=== PATIENT | male | born 1980 | race African-American/Black ===

== ENCOUNTER 2024-02-27 13:43 | Inpatient (IN) ==
--- NOTE | 2024-02-27 13:59 | Emergency Department Note ---
History of Present Illness General Chief complaint: Hip Pain Time Seen by Provider: 02/27/24 13:47 History of Present Illness This is a 43-year-old male with a history of right hip surgery about a year ago that presents to the emergency department via EMS accompanied by 2 corrections officers from [facility] with complaints of "right hip pain". Patient has history of right hip surgery about a year ago. This was with hardware secondary to injury. The patient denies issue up until today he notes he was standing in his cell, twisted and felt a pop in the right hip region. This persisted. He did not fall. He did not strike the head or lose consciousness. Since that time he notes right hip pain that is severe, 02/13 in nature and he feels a protrusion in the right anterior hip. Home Medications Medication Instructions Recorded Confirmed Type cetirizine 10 mg capsule 10 mg PO QAM 07/11/23 02/27/24 History meloxicam 15 mg tablet 15 mg PO QAM 07/11/23 02/27/24 History omeprazole 20 mg capsule,delayed 20 mg PO QAM 07/11/23 02/27/24 History release albuterol sulfate 90 mcg/actuation 1 inh inhalation QID PRN 08/09/23 02/27/24 History aerosol inhaler sob/wheezing tamsulosin 0.4 mg capsule 0.4 mg PO DAILY #90 caps 09/03/23 02/27/24 Rx Allergies Allergy/AdvReac Type Severity Reaction Status Date / Time No Known Allergies Allergy Verified 07/26/23 05:57 Past Med/Surg History Problem List (Updated 02/27/24 @ 22:44 by Noble Freedman PA-C) Urinary retention (Acute) Inability to ambulate due to hip (Acute) Right hip pain (Acute) Urinary hesitancy Scrotal pain (Acute) Testicular pain Epididymitis Medical History Left varicocele GERD (gastroesophageal reflux disease) Allergic rhinitis Chronic pain Bulging lumbar disc DDD (degenerative disc disease), lumbar Surgical History Hx of left inguinal hernia repair (~05/17/23) History of repair of right hip joint Hx of appendectomy Hx of shoulder surgery lt, labrum, AC and Bursa Social History Smoking Status: Never smoker Tobacco Type: Smokeless Tobacco (Dip or Chew) Second Hand Exposure: No; Do You Dip or Chew Tobacco: Yes (5 dips/day); Hx Alcohol Use: No Hx Substance Use: Yes Last Used Substance Other:: daily use of marijuana Preferred Language: Georgian Communication Ability: Effective 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 Beliefs That Will Affect Care: None Current Living Situation: Spouse Feels Safe at Home: Yes Assistive Devices: Cane and Glasses Review of Systems A total of 10 systems reviewed and were otherwise negative Physical Exam Vital Signs Vital Signs - 24 hr 02/27/24 13:50 02/27/24 13:57 02/27/24 14:00 Temperature 36.7 C Temperature Source Oral Pulse Rate 81 77 Pulse Rate from SpO2 Sensor 77 Respiratory Rate 20 18 Respiratory Effort / Characteristics Non-Labored Spontaneous Respiratory Depth Normal Respiratory Pattern Regular Blood Pressure 115/63 Blood Pressure Mean 80 Pulse Oximetry 99 100 100 Oxygen Delivery Method Room Air Room Air Room Air Sepsis Recent Fever Within 48 Hours No Sepsis New/Unexplained Change in Mental Status N/A Sepsis Action Taken by Nursing No Action Required 02/27/24 14:07 02/27/24 14:12 02/27/24 14:21 Temperature Temperature Source Pulse Rate 77 100 H 73 Pulse Rate from SpO2 Sensor 101 H 72 Respiratory Rate 16 12 Respiratory Effort / Characteristics Respiratory Depth Respiratory Pattern Blood Pressure Blood Pressure Mean Pulse Oximetry 99 93 Oxygen Delivery Method Sepsis Recent Fever Within 48 Hours Sepsis New/Unexplained Change in Mental Status Sepsis Action Taken by Nursing 02/27/24 14:30 02/27/24 14:45 02/27/24 15:06 Temperature Temperature Source Pulse Rate 69 67 Pulse Rate from SpO2 Sensor 69 66 Respiratory Rate 19 12 Respiratory Effort / Characteristics Respiratory Depth Respiratory Pattern Blood Pressure 87/55 L Blood Pressure Mean 58 Pulse Oximetry 100 96 Oxygen Delivery Method Sepsis Recent Fever Within 48 Hours Sepsis New/Unexplained Change in Mental Status Sepsis Action Taken by Nursing 02/27/24 15:09 02/27/24 15:18 02/27/24 15:24 Temperature Temperature Source Pulse Rate 67 74 70 Pulse Rate from SpO2 Sensor 67 74 72 Respiratory Rate 12 13 12 Respiratory Effort / Characteristics Respiratory Depth Respiratory Pattern Blood Pressure Blood Pressure Mean Pulse Oximetry 97 97 94 Oxygen Delivery Method Sepsis Recent Fever Within 48 Hours Sepsis New/Unexplained Change in Mental Status Sepsis Action Taken by Nursing 02/27/24 15:33 02/27/24 15:36 02/27/24 15:36 Temperature Temperature Source Pulse Rate 79 Pulse Rate from SpO2 Sensor 79 Respiratory Rate 11 L Respiratory Effort / Characteristics Respiratory Depth Respiratory Pattern Blood Pressure 95/63 L 95/63 L Blood Pressure Mean 70 70 Pulse Oximetry 97 Oxygen Delivery Method Sepsis Recent Fever Within 48 Hours Sepsis New/Unexplained Change in Mental Status Sepsis Action Taken by Nursing 02/27/24 15:36 02/27/24 15:48 02/27/24 15:50 Temperature Temperature Source Pulse Rate 78 Pulse Rate from SpO2 Sensor 78 Respiratory Rate 15 Respiratory Effort / Characteristics Respiratory Depth Respiratory Pattern Blood Pressure 95/63 L 107/66 Blood Pressure Mean 70 72 Pulse Oximetry 99 Oxygen Delivery Method Sepsis Recent Fever Within 48 Hours Sepsis New/Unexplained Change in Mental Status Sepsis Action Taken by Nursing 02/27/24 15:51 02/27/24 16:03 02/27/24 16:15 Temperature Temperature Source Pulse Rate 70 66 75 Pulse Rate from SpO2 Sensor 69 65 75 Respiratory Rate 15 14 Respiratory Effort / Characteristics Respiratory Depth Respiratory Pattern Blood Pressure Blood Pressure Mean Pulse Oximetry 99 98 100 Oxygen Delivery Method Room Air Sepsis Recent Fever Within 48 Hours Sepsis New/Unexplained Change in Mental Status Sepsis Action Taken by Nursing 02/27/24 16:27 02/27/24 16:30 02/27/24 16:42 Temperature Temperature Source Pulse Rate 69 73 70 Pulse Rate from SpO2 Sensor 69 71 69 Respiratory Rate 14 14 Respiratory Effort / Characteristics Respiratory Depth Respiratory Pattern Blood Pressure Blood Pressure Mean Pulse Oximetry 97 98 97 Oxygen Delivery Method Sepsis Recent Fever Within 48 Hours Sepsis New/Unexplained Change in Mental Status Sepsis Action Taken by Nursing 02/27/24 16:54 02/27/24 17:00 02/27/24 17:21 Temperature Temperature Source Pulse Rate 69 65 62 Pulse Rate from SpO2 Sensor 72 65 64 Respiratory Rate 14 11 L Respiratory Effort / Characteristics Respiratory Depth Respiratory Pattern Blood Pressure Blood Pressure Mean Pulse Oximetry 100 97 99 Oxygen Delivery Method Sepsis Recent Fever Within 48 Hours Sepsis New/Unexplained Change in Mental Status Sepsis Action Taken by Nursing 02/27/24 17:39 Temperature Temperature Source Pulse Rate 70 Pulse Rate from SpO2 Sensor 70 Respiratory Rate 13 Respiratory Effort / Characteristics Respiratory Depth Respiratory Pattern Blood Pressure 115/60 Blood Pressure Mean 78 Pulse Oximetry 99 Oxygen Delivery Method Room Air Sepsis Recent Fever Within 48 Hours Sepsis New/Unexplained Change in Mental Status Sepsis Action Taken by Nursing VITAL SIGNS - Vital signs and nursing notes were reviewed. Stable and afebrile. GENERAL -43-year-old male appearing his stated age who appears to be in pain. Communicates well with provider and answers questions appropriately. SKIN - Without rashes. No meningeal or petechial rash. HEAD - NC/AT. EYES - PERRL with EOMI bilaterally. Sclera anicteric. EARS - No deformities of external structures noted on gross examination bilaterally. NOSE - Midline and without cyanosis. No epistaxis or purulent drainage noted. LUNGS - Chest wall symmetric without accessory muscle use, intercostals retractions, or central cyanosis. Normal vesicular breath sounds CTA B/L. No wheezes, rales, or rhonchi appreciated. CARDIAC -tachycardic at a regular rhythm with S1/S2. No murmur, rubs, or gallops appreciated. ABDOMEN - Abdominal contour normal without pulsations or visible masses. BS normoactive all four quadrants. No tenderness, palpable masses, hepatosplenomegaly, or ascites noted. EXTREMITIES - No clubbing or peripheral cyanosis. Fullness in the right anterior hip. Right leg externally rotated +5/5 strength noted in UE/LE bilaterally. However, will not flex or extend the right hip actively and passive range severely limited secondary to pain. Axial loading of the right leg does reproduce discomfort. Gentle longitudinal traction does not increase discomfort. NEUROLOGIC - Cranial nerves II through XII grossly intact. Sensory intact to light touch throughout the right lower extremity without deficit PSYCH -alert, oriented and pleasant on exam. Course Administered Medications Acetaminophen (Acetaminophen 500 Mg Tab) 1,000 mg PO Q8H FANTASMA Stop: 03/28/24 21:59 Last Admin: 02/27/24 22:12 Dose: 1,000 mg Documented By: RAHEEM Cyclobenzaprine HCl (Cyclobenzaprine Hcl 10 Mg Tab) 10 mg PO TID FANTASMA Stop: 03/28/24 20:59 Last Admin: 02/27/24 22:11 Dose: 10 mg Documented By: RAHEEM Docusate Sodium (Docusate Sodium 100 Mg Cap) 100 mg PO BID FANTASMA Stop: 03/28/24 20:59 Last Admin: 02/27/24 22:11 Dose: 100 mg Documented By: RAHEEM Enoxaparin Sodium (Enoxaparin Inj 40 Mg/0.4 Ml Syr) 40 mg SQ Q24H FANTASMA Stop: 03/28/24 20:59 Last Admin: 02/27/24 22:12 Dose: 40 mg Documented By: RAHEEM Gabapentin (Gabapentin 300 Mg Cap) 300 mg PO TID FANTASMA Stop: 03/28/24 20:59 Last Admin: 02/27/24 22:12 Dose: 300 mg Documented By: RAHEEM Melatonin (Melatonin 3 Mg Tab) 6 mg PO HS PRN PRN Reason: Sleep Stop: 03/28/24 20:59 Last Admin: 02/27/24 22:11 Dose: 6 mg Documented By: RAHEEM Methocarbamol (Methocarbamol 750 Mg Tablet) 750 mg PO TID FANTASMA Stop: 03/28/24 18:20 Last Admin: 02/27/24 19:02 Dose: 750 mg Documented By: BALDOMERO Morphine Sulfate (Morphine Sulfate 4 Mg/Ml 1 Ml Carp\\Vial) 3 mg IV Q3H PRN PRN Reason: Severe Pain (Scale 7, 8, 9,10) Stop: 03/12/24 20:46 Last Admin: 02/27/24 21:12 Dose: 3 mg Documented By: RAHEEM Discontinued Medications Fentanyl Citrate (Fentanyl Citrate Pf 100 Mcg/2 Ml Vial) 50 mcg IV Q30M [facility] Stop: 03/12/24 13:59 Last Admin: 02/27/24 18:37 Dose: Not Given Documented By: Admin: 02/27/24 18:36 Dose: Not Given Documented By: Admin: 02/27/24 17:46 Dose: Not Given Documented By: Admin: 02/27/24 17:11 Dose: Not Given Documented By: Admin: 02/27/24 17:11 Dose: Not Given Documented By: Admin: 02/27/24 16:31 Dose: Not Given Documented By: Admin: 02/27/24 15:43 Dose: 50 mcg Documented By: Admin: 02/27/24 15:34 Dose: Not Given Documented By: Admin: 02/27/24 15:17 Dose: Not Given Documented By: Admin: 02/27/24 14:04 Dose: 50 mcg Documented By: BALDOMERO Ketorolac Tromethamine (Ketorolac Tromethamine 15 Mg/Ml Vial) 15 mg IV NOW STA Stop: 02/27/24 16:44 Last Admin: 02/27/24 17:15 Dose: 15 mg Documented By: BALDOMERO Ondansetron HCl (Ondansetron Inj 2 Mg/Ml 2 Ml Vial) 4 mg IV NOW STA Stop: 02/27/24 13:58 Last Admin: 02/27/24 14:04 Dose: 4 mg Documented By: BALDOMERO Medical Decision Making Laboratory Data 02/27/24 13:52 02/27/24 13:52 Lab Results 02/27/24 Range/Units 13:52 WBC 7.97 (4.8-10.8) K/ul RBC 4.53 L (4.70-6.10) M/uL Hgb 13.9 L (14.0-18.0) g/dl Hct 40.5 L (42.0-52.0) % MCV 89.4 (80.0-100.0) fL MCH 30.7 (25.0-34.0) pg MCHC 34.3 (32.0-36.0) g/dL RDW Std Deviation 38.6 (36.4-46.3) fL RDW Coeff of Nery 11.9 (11.5-14.5) % Plt Count 224 (130-400) K/uL MPV 9.5 (9.4-12.4) fL Immature Gran % (Auto) 0.3 % Neut % (Auto) 72.9 % Lymph % (Auto) 19.6 % [place] % (Auto) 5.1 % Eos % (Auto) 1.5 % Baso % (Auto) 0.6 % Neut # (Auto) 5.81 (1.40-6.50) K/uL Lymph # (Auto) 1.56 (1.20-3.40) K/uL [place] # (Auto) 0.41 (0.11-0.59) K/uL Eos # (Auto) 0.12 (0.00-0.50) K/uL Baso # (Auto) 0.05 (0.00-0.20) K/uL Immature Gran # (Auto) 0.02 (0.01-0.20) K/uL PT 11.4 (9.0-12.0) Seconds INR 1.1 (0.9-1.1) APTT 25 (21-31) Seconds PTT Ratio 0.9 Sodium 139 (136-145) mmol/L Potassium 3.9 (3.5-5.1) mmol/L Chloride 103 (98-107) mmol/L Carbon Dioxide 28 (21-32) mmol/L Anion Gap 8 (3-11) BUN 17 (6-23) mg/dl Creatinine 1.05 (0.6-1.4) mg/dl Est Cr Clr Drug Dosing 97.5 ml/min eGFR 89.21 BUN/Creatinine Ratio 16.2 (10-20) Glucose 107 H (70-99(Fasting)) mg/dl Calcium 9.3 (8.6-10.3) mg/dl Total Bilirubin 0.5 (0.2-1.0) mg/dl AST 16 (13-39) U/L ALT 11 (7-52) U/L Alkaline Phosphatase 68 (34-104) U/L Total Protein 6.7 (6.0-8.3) gm/dl Albumin 4.3 (3.4-5.0) gm/dl Globulin 2.4 L (2.5-4.0) gm/dl Albumin/Globulin Ratio 1.8 (0.9-2) Imaging Data Radiologist's Impression: Hip/Pelvis X-Ray 02/27/24 13:57 XR hip RT 2V w pelvis HISTORY: 43 years-old Male severe R hip pain s/p feeling pop while twisting COMPARISON: None TECHNIQUE: AP view of the pelvis with 2 views of the right hip FINDINGS: Intact right proximal femoral ORIF hardware. Surgical clips project over the right hemipelvis. Minimal osteoarthritis of the hips. No acute fracture, dislocation or osseous erosion. No opaque foreign bodies. IMPRESSION: 1. No acute fracture or dislocation. 2. Intact right proximal femoral hardware. ACT 112: Negative or not required by law. The above report was generated using voice recognition software. It may contain grammatical, syntax or spelling errors. Electronically signed by: Jordy Yung M.D. 02/27/2024 2:[address] 02/27/24 14:33 CT hip RT wo con CLINICAL HISTORY: R hip pain, felt pop when rotating, severe pain TECHNIQUE: Multidetector row helical CT of the right hip was performed without intravenous contrast. Coronal and sagittal reformations were obtained. Automated dose lowering techniques and/or adjustment according to patient size were utilized for this examination. CT DOSE: 419.18 mGy.cm Comparison: None available at the time of this dictation. FINDINGS: The osseous structures are without fracture or dislocation. A nail through the femoral neck is seen. The joint spaces are maintained. No joint effusion is seen. The soft tissues are unremarkable. IMPRESSION: No evidence of acute fracture or dislocation. ACT 112: Negative or not required by law. Electronically signed by: Ian Romero M.D. 02/27/2024 3:39 PM MDM Narrative Patient was seen and evaluated as above in room C07. Review was performed of triage nursing notes and vital signs. Patient presents to us today for assessment of right hip pain. Patient was standing in his cell, twisted and felt a pop in the right anterior hip. He notes severe right hip pain since that time. He notes history of surgery on the hip about a year ago. Patient and route did receive 50 mcg of fentanyl by EMS. On arrival he is in severe pain, and is shaking from so much pain. He is alert and oriented. No signs of additional trauma or injury. There is tenderness overlying the right anterior hip. Options of care were discussed with the patient. IV fentanyl ordered for pain and Zofran for any nausea. He did receive a total of 2 IV doses of fentanyl here in the ED. X-ray of the right hip plus pelvis was obtained per my interpretation there is no fracture or dislocation. Formal radiology report is as above also noting no fracture or dislocation. Radiologist also comments intact right proximal femoral hardware. Noting the patient severity of pain we will proceed with CT imaging for further assessment. CT scan results as above. This was essentially negative. I discussed with Dr. Platt of orthopedics. At this time we agreed there is no acute surgical process based on assessment and imaging. We also agreed with trying IV Toradol. I reviewed this with the patient, to include benefit and risk. Patient did note history of some GI bleeding with ibuprofen but that was several years ago. No allergy to ibuprofen. At this time it is felt that a one-time dose of IV Toradol outweighed benefit. Patient in agreement and we proceeded. No change in symptoms. Patient also noted to be retaining urine but notes history of similar. I suspect the inability to urinate is secondary to not being able to move with the hip pain and do not suspect cauda equina syndrome or emergent neurovascular compromise. Patient denies any lower extremity weakness, bowel or bladder incontinence, numbness or tingling in genital region. Bladder scan was performed he was retaining about 800 cc. Abrams catheter was placed as the patient still cannot urinate. At this time we will proceed with further evaluation and management in the inpatient setting. Case was discussed with the hospitalist service. Please refer to further documentation regarding his stay. Urinalysis reveals no leukocytosis. Minor anemia noted with hemoglobin of 13 9. Coags are normal. No evidence of kidney or liver failure. GCS: 15 In the evaluation and treatment of this patient the following differential diagnoses were entertained: Fracture, dislocation, subluxation, contusion, sprain, strain, among others Impression & Plan Right hip pain, Inability to ambulate due to hip, Urinary retention Discharge Plan Visit Data Chief Complaint: Hip Pain ED Provider: Shawn Newsome ED Midlevel Provider: Noble Freedman Discharge Problem: Right hip pain, Inability to ambulate due to hip, Urinary retention Patient Disposition: Admitted As Inpatient Condition: Good Discharge Instructions Interventions: ED Discharge Assessment Last Done: 02/27/24 20:15
[2024-02-27] MEDS: ONDANSETRON INJ 2 MG/ML 2 ML VIAL IV STA (14:04)
[2024-02-27] MEDS: fentaNYL citrate PF 100 MCG/2 ML VIAL IV SCH (14:04)
[2024-02-27 14:13] LABS: Basophils # (auto) 0.05 K/uL (0.00-0.20); Basophils % (auto) 0.6 %; Eosinophils # (auto) 0.12 K/uL (0.00-0.50); Eosinophils % (auto) 1.5 %; Hematocrit (blood only) 40.5 % (42.0-52.0); Hemoglobin 13.9 g/dl (14.0-18.0); Immature Granulocytes # (auto) 0.02 K/uL (0.01-0.20); Immature Granulocytes % (auto) 0.3 %; Lymphocytes # (auto) 1.56 K/uL (1.20-3.40); Lymphocytes % (auto) 19.6 %; Mean Corpuscular Hemoglobin 30.7 pg (25.0-34.0); Mean Corpuscular Hgb Conc 34.3 g/dL (32.0-36.0); Mean Corpuscular Volume 89.4 fL (80.0-100.0); Mean Platelet Volume 9.5 fL (9.4-12.4); Monocytes # (auto) 0.41 K/uL (0.11-0.59); Monocytes % (auto) 5.1 %; Neutrophils # (auto) 5.81 K/uL (1.40-6.50); Neutrophils % (auto) 72.9 %; Platelet Count 224 K/uL (130-400); RDW Coefficient of Variation 11.9 % (11.5-14.5); RDW Standard Deviation 38.6 fL (36.4-46.3); Red Blood Count 4.53 M/uL (4.70-6.10); White Blood Count 7.97 K/ul (4.8-10.8)
[2024-02-27 14:29] LABS: Albumin Globulin Ratio 1.8 (0.9-2); Albumin Level 4.3 gm/dl (3.4-5.0); BUN Creatinine Ratio 16.2 (10-20); Calcium 9.3 mg/dl (8.6-10.3); Creatinine Clr Calc Pharmacy 97.5 ml/min; Globulin 2.4 gm/dl (2.5-4.0); Potassium 3.9 mmol/L (3.5-5.1); Total Protein 6.7 gm/dl (6.0-8.3)
--- NOTE | 2024-02-27 14:40 | XRay Report ---
XR hip RT 2V w pelvis HISTORY: 43 years-old Male severe R hip pain s/p feeling pop while twisting COMPARISON: None TECHNIQUE: AP view of the pelvis with 2 views of the right hip FINDINGS: Intact right proximal femoral ORIF hardware. Surgical clips project over the right hemipelvis. Minima l osteoarthritis of the hips. No acute fracture, dislocation or osseous erosion. No opaque foreign nirmala dies. IMPRESSION: 1. No acute fracture or dislocation. 2. Intact right proximal femoral hardware. ACT 112: Negative or not required by law. The above report was generated using voice recognition software. It may contain grammatical, syntax o r spelling errors. Electronically signed by: Jordy Yung M.D. 02/27/2024 2:38 PM
[2024-02-27 14:41] LABS: INR 1.1 (0.9-1.1); Partial Thromboplastin Ratio 0.9; Partial Thromboplastin Time 25 Seconds (21-31); Prothrombin Time 11.4 Seconds (9.0-12.0)
[2024-02-27 14:46] LABS: Bilirubin,Total 0.5 mg/dl (0.2-1.0)
--- NOTE | 2024-02-27 15:41 | CT Scan Report ---
CT hip RT wo con CLINICAL HISTORY: R hip pain, felt pop when rotating, severe pain TECHNIQUE: Multidetector row helical CT of the right hip was performed without intravenous contrast. Coronal and sagittal reformations were obtained. Automated dose lowering techniques and/or adjustment according to patient size were utilized for this examination. CT DOSE: 419.18 mGy.cm Comparison: None available at the time of this dictation. FINDINGS: The osseous structures are without fracture or dislocation. A nail through the femoral neck is seen. The joint spaces are maintained. No joint effusion is seen. The soft tissues are unremarkable. IMPRESSION: No evidence of acute fracture or dislocation. ACT 112: Negative or not required by law. Electronically signed by: Ian Romero M.D. 02/27/2024 3:39 PM
[2024-02-27] MEDS: KETOROLAC TROMETHAMINE 15 MG/ML VIAL IV STA (17:15)
[2024-02-27] MEDS ORDERED: oxyCODONE HCL IR 5 MG TAB (IMMEDIATE RELEASE) PO PRN ×2 (18:23→20:47)
[2024-02-27] MEDS ORDERED: MoRPHine SULFATE 4 MG/ML 1 ML CARP\\VIAL IV PRN (18:23)
--- NOTE | 2024-02-27 18:24 | History & Physical Report ---
Date of Service February 27, 2024 Assessment & Plan (1) Right hip pain: (2) Inability to ambulate due to hip: (3) Urinary retention: Plan This is a 43 yr old M who has a significant PMH of seasonal allergies, chronic low back pain, chronic R hip pain 2/2 fall requiring surgery intervention, hx of medical marijuana use who presents to ED 2/2 R hip pain. R hip pain Inability to ambulate admit to medical obtain MRI R hip and Lumbar spine Schedule APAP Schedule methocarbamol 750mg TID (pt previously on 1g TID but stopped at residential) Restart gabapentin (pt reports being on 1800mg daily previously) will start 300mg TID and titrate up PRN Oxy for mod pain, PRN IV morphine for severe pain scheduled Colace Urinary Retention Previous hx of urinary hesitancy continue flomax, maintain paulino cath for now once pain under control and ambulating remove bindu consult urology DVT ppx: SCDS for now, await MRI results, if non surgical recommend chemical ppx until ambulatory FULL CODE PCP: [facility] Dispo: admit to medical Pt was seen and examined in collaboration with Dr. Weinstein, please see addendum I spent a total of 60 minutes minutes reviewing notes, outpatient records, labs, medication, coordinating, documenting and providing care for this patient excluding time spent in the performance of separately billed services. History of Present Illness Chief Complaint: R hip pain Primary Care Provider: Vinod Oreilly This is a 43 yr old M who has a significant PMH of seasonal allergies, chronic low back pain, chronic R hip pain 2/2 fall requiring surgery intervention, hx of medical marijuana use who presents to ED 2/2 R hip pain. He is a prisoner at [facility]. Pt states today he was trying to get up from his bed when he got intense R hip pain that caused him to grab the sink and sit back down. When he tried to get up again he felt a pop in his right him and he went down to the ground. His cellmate helped him up but due to the intense pain he was brought to the ED. He states approx 1 year ago he had R hip surgery after a sustained fall where he also tore his labrum. He states this feels similar. "It feels like something is being pushed out or all balled up in there." He reports chronic stabbing pain to the R hip with numbness/tingling to the RLE. This was all present before today. He also reports chronic urinary hesitancy and urgency. He also reports inability to urinate at times. He denies any stool incontinence or bowel/bladder anesthesia. He denies any recent f/c/s, chest pain, sob, n/v/d. His appetite has been normal. Thus far workup in ED has been unremarkable. He underwent a right hip x-ray which revealed intact right proximal femoral ORIF hardware. CT scan concurred with no evidence of fracture or dislocation. CBC and CMP was drawn unremarkable except for a mildly decreased hemoglobin at 13.9. Currently his pain is significant 10 out of 10 and he has had an inability to actively move his right lower extremity. Currently unable to walk secondary to severe pain. A Paulino catheter was placed in the ED due to urinary retention. Allergies Allergy/AdvReac Type Severity Reaction Status Date / Time No Known Allergies Allergy Verified 07/26/23 05:57 Home Medications Medication Instructions Recorded Confirmed Type cetirizine 10 mg capsule 10 mg PO QAM 07/11/23 02/27/24 History meloxicam 15 mg tablet 15 mg PO QAM 07/11/23 02/27/24 History omeprazole 20 mg capsule,delayed 20 mg PO QAM 07/11/23 02/27/24 History release albuterol sulfate 90 mcg/actuation 1 inh inhalation QID PRN 08/09/23 02/27/24 History aerosol inhaler sob/wheezing tamsulosin 0.4 mg capsule 0.4 mg PO DAILY #90 caps 09/03/23 02/27/24 Rx Past Med/Surg History Problem List Urinary retention Inability to ambulate due to hip Right hip pain Urinary hesitancy Scrotal pain (Acute) Testicular pain Epididymitis Medical History Left varicocele GERD (gastroesophageal reflux disease) Allergic rhinitis Chronic pain Bulging lumbar disc DDD (degenerative disc disease), lumbar Surgical History Hx of left inguinal hernia repair (~05/17/23) History of repair of right hip joint Hx of appendectomy Hx of shoulder surgery lt, labrum, AC and Bursa Social History Smoking Status: Never smoker Tobacco Type: Smokeless Tobacco (Dip or Chew) Second Hand Exposure: No; Do You Dip or Chew Tobacco: Yes (5 dips/day); Hx Alcohol Use: No Hx Substance Use: Yes Last Used Substance Other:: daily use of marijuana Preferred Language: Spanish Communication Ability: Effective Life Enrichment Assistant Required: No Beliefs That Will Affect Care: None Current Living Situation: Spouse Feels Safe at Home: Yes Assistive Devices: Cane and Glasses Review of Systems Review of Systems: All systems reviewed & are unremarkable except as noted in HPI & below Physical Exam Physical Exam: Constitutional: WD/WN, vitals as above, in pain, sitting up in bed, pleasant, conversing easily Head: Normocephalic, Atraumatic Eyes: PERRL, conjunctivae normal, anicteric sclerae ENMT: external ear and nose normal, oropharynx normal Neck: trachea midline, no thyromegaly normal visual inspection Respiratory: normal respiratory effort, lungs clear to auscultation, no wheeze, rales, rhonchi. Normal insp/exp effort, no accessory muscle use Cardiovascular: RRR, no murmur, no edema Vessels: no JVD or carotid bruit Chest: normal inspection of chest Abdomen: normal bowel sounds, soft, nontender, no hepatosplenomegaly Musculoskeletal: no cyanosis or clubbing, inability to active/passively pts RLE,he is NVI distally, good DP, PT pulse b/l Skin: no rashes, warm and dry normal turgor Neurologic: PERRL, EOMI, accommodation nl, no face palsy, no dysarthria CN's II-XI intact bilaterally and moves all extremities Psychiatric: A+Ox3, euthymic affect Lymphatic: no cervical or axillary lymphadenopathy : deferred Results & Data Results & Data Vital Signs (Past 12 Hours) Vital Signs Temp Pulse Resp BP Pulse Ox O2 Del Method 02/27/24 17:39 70 13 115/60 99 Room Air 02/27/24 17:21 62 11 L 99 02/27/24 17:00 65 97 02/27/24 16:54 69 14 100 02/27/24 16:42 70 97 02/27/24 16:30 73 14 98 02/27/24 16:27 69 14 97 02/27/24 16:15 75 14 100 02/27/24 16:03 66 98 02/27/24 15:51 70 15 99 Room Air 02/27/24 15:50 107/66 02/27/24 15:48 78 15 99 02/27/24 15:36 95/63 L 02/27/24 15:36 95/63 L 02/27/24 15:36 95/63 L 02/27/24 15:33 79 11 L 97 02/27/24 15:24 70 12 94 02/27/24 15:18 74 13 97 02/27/24 15:09 67 12 97 02/27/24 15:06 87/55 L 02/27/24 14:45 67 12 96 02/27/24 14:30 69 19 100 02/27/24 14:21 73 12 93 02/27/24 14:12 100 H 16 99 02/27/24 14:07 77 02/27/24 14:00 77 18 100 Room Air 02/27/24 13:57 100 Room Air 02/27/24 13:50 36.7 C 81 20 115/63 99 Room Air Laboratory Results I have independently reviewed and interpreted patient's admitting labs including CBC, CMP Diagnostic Findings Hip/Pelvis X-Ray 02/27/24 13:57 XR hip RT 2V w pelvis HISTORY: 43 years-old Male severe R hip pain s/p feeling pop while twisting COMPARISON: None TECHNIQUE: AP view of the pelvis with 2 views of the right hip FINDINGS: Intact right proximal femoral ORIF hardware. Surgical clips project over the right hemipelvis. Minimal osteoarthritis of the hips. No acute fracture, dis location or osseous erosion. No opaque foreign bodies. IMPRESSION: 1. No acute fracture or dislocation. 2. Intact right proximal femoral hardware. ACT 112: Negative or not required by law. The above report was generated using voice recognition software. It may contain grammatical, syntax or spelling errors. Electronically signed by: Jordy Yung M.D. 02/27/2024 2:[address] 02/27/24 14:33 CT hip RT wo con CLINICAL HISTORY: R hip pain, felt pop when rotating, severe pain TECHNIQUE: Multidetector row helical CT of the right hip was performed without intravenous contrast. Coronal and sagittal reformations were obtained. Automated dose lowering techniques and/or adjustment according to patient size were utilized for this examination. CT DOSE: 419.18 mGy.cm Comparison: None available at the time of this dictation. FINDINGS: The osseous structures are without fracture or dislocation. A nail through the femoral neck is seen. The joint spaces are maintained. No joint effusion is seen. The soft tissues are unremarkable. IMPRESSION: No evidence of acute fracture or dislocation. ACT 112: Negative or not required by law. Electronically signed by: Ian Romero M.D. 02/27/2024 3:39 PM Medications Administered Current Inpatient Medications Fentanyl Citrate (Fentanyl Citrate Pf 100 Mcg/2 Ml Vial) 50 mcg IV Q30M [facility] Stop: 03/12/24 13:59 Last Admin: 02/27/24 17:46 Dose: Not Given Methocarbamol (Methocarbamol 750 Mg Tablet) 750 mg PO TID [facility] Stop: 03/28/24 18:20 Morphine Sulfate (Morphine Sulfate 4 Mg/Ml 1 Ml Carp\\Vial) 3 mg IV Q3H PRN PRN Reason: Severe Pain (Scale 7, 8, 9,10) Stop: 03/12/24 18:22 Oxycodone HCl (Oxycodone Hcl Ir 5 Mg Tab (Immediate Release)) 5 mg PO Q6H PRN PRN Reason: Moderate Pain (Scale 4, 5, 6) Stop: 03/12/24 18:22 COVID-19 Results Results COVID-19 Adm Lab Results: RBC 4.53 M/uL (4.70-6.10) L 02/27/24 WBC 7.97 K/ul (4.8-10.8) 02/27/24 Hgb 13.9 g/dl (14.0-18.0) L 02/27/24 Hct 40.5 % (42.0-52.0) L 02/27/24 Plt Count 224 K/uL (130-400) 02/27/24 Neutrophils (%) (Auto) 72.9 % 02/27/24 Lymphocytes (%) (Auto) 19.6 % 02/27/24 Eosinophils # (Auto) 0.12 K/uL (0.00-0.50) 02/27/24 Immature Granulocyte % (Auto) 0.3 % 02/27/24 Neutrophils # (Auto) 5.81 K/uL (1.40-6.50) 02/27/24 Lymphocytes # (Auto) 1.56 K/uL (1.20-3.40) 02/27/24 Eosinophils # (Auto) 0.12 K/uL (0.00-0.50) 02/27/24 Basophils # (Auto) 0.05 K/uL (0.00-0.20) 02/27/24 Immature Granulocyte # (Auto) 0.02 K/uL (0.01-0.20) 4 Na 139 mmol/L (136-145) 02/27/24 K 3.9 mmol/L (3.5-5.1) 02/27/24 Cl 103 mmol/L (98-107) 02/27/24 CO2 28 mmol/L (21-32) 02/27/24 Anion Gap 8 (3-11) 02/27/24 BUN 17 mg/dl (6-23) 02/27/24 Creatinine 1.05 mg/dl (0.6-1.4) 02/27/24 BUN/Creatinine Ratio 16.2 (10-20) 02/27/24 Glucose Level 107 mg/dl (70-99(Fasting)) H 02/27/24 Ca 9.3 mg/dl (8.6-10.3) 02/27/24 Total Bilirubin 0.5 mg/dl (0.2-1.0) 02/27/24 AST/SGOT 16 U/L (13-39) 02/27/24 ALT/SGPT 11 U/L (7-52) 02/27/24 Alkaline Phosphatase 68 U/L (34-104) 02/27/24 Total Protein 6.7 gm/dl (6.0-8.3) 02/27/24 Albumin 4.3 gm/dl (3.4-5.0) 02/27/24 Globulin 2.4 gm/dl (2.5-4.0) L 02/27/24 Albumin/Globulin Ratio 1.8 (0.9-2) 02/27/24 PTT 25 Seconds (21-31) 02/27/24 INR 1.1 (0.9-1.1) 02/27/24 Code Status & VTE Plan VTE Prophylaxis Plan VTE Prophylaxis will be ordered: Yes Supervising Physician Co-Signing Physician Notes attending addendum The patient was seen and examined in the emergency room He has been complaining of severe pain in the right groin with any movement of the right lower extremity which has been worse since this morning He is also been unable to pass any urine and required a catheterization Apparently has had a fall about 1 week before and has been walking on feet since then History of left hip surgery years before On examination Lying in bed without any apparent distress Hemodynamically stable Chestclear to auscultate bilaterally HeartS1-S2, regular Abdomenbenign Musculoskeletalsome tenderness in the right groin and any movement of the right lower extremity produced severe pain in right hip His admission labs and imaging studies reviewed CT of the hip did not show any fracture or any dislocation The pain is likely originating in right hip and/or lower back and will need to get MRI of the lumbar spine and also hip to rule out any soft tissue injury Agree with assessment and plan as outlined above by aKrol Paulino PA-C and take the full responsibility of the care DR Debbi Weinstein
--- NOTE | 2024-02-27 18:26 | Orthopedic Consultation ---
Date of Consultation February 27, 2024 Assessment & Plan (1) Right hip pain: IMPRESSION: R hip pain, h/o previous right hip arthroscopy, labral repair, and ORIF, likely secondarily to muscle strain vs re-current labral injury although CT scan did not show an effusion. PT/OT Ice with easy wrap Pain control with p.o. or IV medication Muscle relaxers for spasm and pain Can be weightbearing as tolerated with crutches or walker assistance To consider MRI arthrogram of the right hip as outpatient To consider musculoskeletal ultrasound right hip Obtain medical record from previous surgery by [facility]. Continue care per primary service. Present on Admission?: Yes Supervising Physician Co-Signing Physician Notes I, Dr. Platt, saw and examined the patient. I discussed the management with my PA. I reviewed my PAs note and agree with the documented findings and attest to completing the substantive portion of medical decision making and plan of care I developed. History of Present Illness Reason for Consultation: Right Hip Pain Requesting Physician: Torsten Platt MD Attending Physician: Dr. Weinstein History of Present Illness This is a 43 yr old M who has a significant PMH of seasonal allergies, chronic low back pain, chronic R hip pain 2/2 fall requiring surgery intervention, hx of medical marijuana use who presents to ED 2/2 R hip pain. He is a prisoner at [facility]. Pt states today he was trying to get up from his bed when he got intense R hip pain that caused him to grab the sink and sit back down. When he tried to get up again he felt a pop in his right hip and he went down to the ground. His cellmate helped him up but due to the intense pain he was brought to the ED. He states approx 1 year ago he had R hip surgery after a sustained fall where he also tore his labrum. He states this feels similar. "It feels like something is being pushed out or all balled up in there." He reports chronic stabbing pain to the R hip with numbness/tingling to the RLE. This was all present before today. He also reports chronic urinary hesitancy and urgency. He also reports inability to urinate at times. He denies any stool incontinence or bowel/bladder anesthesia. He denies any recent f/c/s, chest pain, sob, n/v/d. His appetite has been normal. Thus far workup in ED has been unremarkable. He underwent a right hip x-ray which revealed intact right proximal femoral ORIF hardware. CT scan concurred with no evidence of fracture or dislocation. CBC and CMP was drawn unremarkable except for a mildly decreased hemoglobin at 13.9. Currently his pain is significant 10 out of 10 and he has had an inability to actively move his right lower extremity. Currently unable to walk secondary to severe pain. A Abrams catheter was placed in the ED due to urinary retention. Allergies Allergy/AdvReac Type Severity Reaction Status Date / Time No Known Allergies Allergy Verified 07/26/23 05:57 Home Medications Medication Instructions Recorded Confirmed Type cetirizine 10 mg capsule 10 mg PO QAM 07/11/23 02/27/24 History meloxicam 15 mg tablet 15 mg PO QAM 07/11/23 02/27/24 History omeprazole 20 mg capsule,delayed 20 mg PO QAM 07/11/23 02/27/24 History release albuterol sulfate 90 mcg/actuation 1 inh inhalation QID PRN 08/09/23 02/27/24 History aerosol inhaler sob/wheezing tamsulosin 0.4 mg capsule 0.4 mg PO DAILY #90 caps 09/03/23 02/27/24 Rx Patient History Medical History Left varicocele GERD (gastroesophageal reflux disease) Allergic rhinitis Chronic pain Bulging lumbar disc DDD (degenerative disc disease), lumbar Surgical History Hx of left inguinal hernia repair (~05/17/23) History of repair of right hip joint Hx of appendectomy Hx of shoulder surgery lt, labrum, AC and Bursa Social History Smoking Status: Never smoker Tobacco Type: Smokeless Tobacco (Dip or Chew) Second Hand Exposure: No; Do You Dip or Chew Tobacco: Yes (5 dips/day); Hx Alcohol Use: No Hx Substance Use: Yes Last Used Substance Other:: daily use of marijuana Preferred Language: [place] Communication Ability: Effective Joint Cutter Required: No Beliefs That Will Affect Care: None Current Living Situation: Spouse Feels Safe at Home: Yes Assistive Devices: Cane and Glasses Review of Systems Review of Systems: All systems reviewed & are unremarkable except as noted in Subjective Physical Exam Physical Exam: Right hip: Patient has significant tenderness to palpation over the hip adductor, flexor muscles and hamstrings extending from the groin area to the posterior aspect of the knee. Patient is unable to perform right straight leg raise test. He is unable to flex at his knee. He is positioned with his leg slightly externally rotated but is not shortened. He is able to actively dorsi and plantarflex his foot. His peripheral pulses are 2+. He is neurovascularly intact distally. He does have exquisite tenderness to palpation over the medial groin and along the medial aspect of the thigh. There is no edema, erythema or ecchymosis. Previous portals and lateral incision are well healed. Results & Data Vital Signs (Past 12 Hours) Vital Signs Temp Pulse Resp BP Pulse Ox O2 Del Method 02/27/24 18:16 69 02/27/24 17:39 70 13 115/60 99 Room Air 02/27/24 17:21 62 11 L 99 02/27/24 17:00 65 97 02/27/24 16:54 69 14 100 02/27/24 16:42 70 97 02/27/24 16:30 73 14 98 02/27/24 16:27 69 14 97 02/27/24 16:15 75 14 100 02/27/24 16:03 66 98 02/27/24 15:51 70 15 99 Room Air 02/27/24 15:50 107/66 02/27/24 15:48 78 15 99 02/27/24 15:36 95/63 L 02/27/24 15:36 95/63 L 02/27/24 15:36 95/63 L 02/27/24 15:33 79 11 L 97 02/27/24 15:24 70 12 94 02/27/24 15:18 74 13 97 02/27/24 15:09 67 12 97 02/27/24 15:06 87/55 L 02/27/24 14:45 67 12 96 02/27/24 14:30 69 19 100 02/27/24 14:21 73 12 93 02/27/24 14:12 100 H 16 99 02/27/24 14:07 77 02/27/24 14:00 77 18 100 Room Air 02/27/24 13:57 100 Room Air 02/27/24 13:50 36.7 C 81 20 115/63 99 Room Air Diagnostic Findings Laboratory Results WBC 7.97 K/ul (4.8-10.8) 02/27/24 13:52 RBC 4.53 M/uL (4.70-6.10) L 02/27/24 13:52 Hgb 13.9 g/dl (14.0-18.0) L 02/27/24 13:52 Hct 40.5 % (42.0-52.0) L 02/27/24 13:52 MCV 89.4 fL (80.0-100.0) 02/27/24 13:52 MCH 30.7 pg (25.0-34.0) 02/27/24 13:52 MCHC 34.3 g/dL (32.0-36.0) 02/27/24 13:52 RDW Std Deviation 38.6 fL (36.4-46.3) 02/27/24 13:52 RDW Coeff of Nery 11.9 % (11.5-14.5) 02/27/24 13:52 Plt Count 224 K/uL (130-400) 02/27/24 13:52 MPV 9.5 fL (9.4-12.4) 02/27/24 13:52 Immature Gran % (Auto) 0.3 % 02/27/24 13:52 Neut % (Auto) 72.9 % 02/27/24 13:52 Lymph % (Auto) 19.6 % 02/27/24 13:52 [place] % (Auto) 5.1 % 02/27/24 13:52 Eos % (Auto) 1.5 % 02/27/24 13:52 Baso % (Auto) 0.6 % 02/27/24 13:52 Neut # (Auto) 5.81 K/uL (1.40-6.50) 02/27/24 13:52 Lymph # (Auto) 1.56 K/uL (1.20-3.40) 02/27/24 13:52 [place] # (Auto) 0.41 K/uL (0.11-0.59) 02/27/24 13:52 Eos # (Auto) 0.12 K/uL (0.00-0.50) 02/27/24 13:52 Baso # (Auto) 0.05 K/uL (0.00-0.20) 02/27/24 13:52 Immature Gran # (Auto) 0.02 K/uL (0.01-0.20) 02/27/24 13:52 PT 11.4 Seconds (9.0-12.0) 02/27/24 13:52 INR 1.1 (0.9-1.1) 02/27/24 13:52 APTT 25 Seconds (21-31) 02/27/24 13:52 PTT Ratio 0.9 02/27/24 13:52 Sodium 139 mmol/L (136-145) 02/27/24 13:52 Potassium 3.9 mmol/L (3.5-5.1) 02/27/24 13:52 Chloride 103 mmol/L (98-107) 02/27/24 13:52 Carbon Dioxide 28 mmol/L (21-32) 02/27/24 13:52 Anion Gap 8 (3-11) 02/27/24 13:52 BUN 17 mg/dl (6-23) 02/27/24 13:52 Creatinine 1.05 mg/dl (0.6-1.4) 02/27/24 13:52 Est Cr Clr Drug Dosing 97.5 ml/min 02/27/24 13:52 eGFR 89.21 02/27/24 13:52 BUN/Creatinine Ratio 16.2 (10-20) 02/27/24 13:52 Glucose 107 mg/dl (70-99(Fasting)) H 02/27/24 13:52 Calcium 9.3 mg/dl (8.6-10.3) 02/27/24 13:52 Total Bilirubin 0.5 mg/dl (0.2-1.0) 02/27/24 13:52 AST 16 U/L (13-39) 02/27/24 13:52 ALT 11 U/L (7-52) 02/27/24 13:52 Alkaline Phosphatase 68 U/L (34-104) 02/27/24 13:52 Total Protein 6.7 gm/dl (6.0-8.3) 02/27/24 13:52 Albumin 4.3 gm/dl (3.4-5.0) 02/27/24 13:52 Globulin 2.4 gm/dl (2.5-4.0) L 02/27/24 13:52 Albumin/Globulin Ratio 1.8 (0.9-2) 02/27/24 13:52 Impressions Hip/Pelvis X-Ray 02/27/24 13:57 XR hip RT 2V w pelvis HISTORY: 43 years-old Male severe R hip pain s/p feeling pop while twisting COMPARISON: None TECHNIQUE: AP view of the pelvis with 2 views of the right hip FINDINGS: Intact right proximal femoral ORIF hardware. Surgical clips project over the right hemipelvis. Minimal osteoarthritis of the hips. No acute fracture, dislocation or osseous erosion. No opaque foreign bodies. IMPRESSION: 1. No acute fracture or dislocation. 2. Intact right proximal femoral hardware. ACT 112: Negative or not required by law. The above report was generated using voice recognition software. It may contain grammatical, syntax or spelling errors. Electronically signed by: Jordy Yung M.D. 02/27/2024 2:[address] 02/27/24 14:33 CT hip RT wo con CLINICAL HISTORY: R hip pain, felt pop when rotating, severe pain TECHNIQUE: Multidetector row helical CT of the right hip was performed without intravenous contrast. Coronal and sagittal reformations were obtained. Automated dose lowering techniques and/or adjustment according to patient size were utilized for this examination. CT DOSE: 419.18 mGy.cm Comparison: None available at the time of this dictation. FINDINGS: The osseous structures are without fracture or dislocation. A nail through the femoral neck is seen. The joint spaces are maintained. No joint effusion is seen. The soft tissues are unremarkable. IMPRESSION: No evidence of acute fracture or dislocation. ACT 112: Negative or not required by law. Electronically signed by: Ian Romero M.D. 02/27/2024 3:39 PM
[2024-02-27] MEDS: METHOCARBAMOL 750 MG TABLET PO SCH (19:02)
[2024-02-27] MEDS ORDERED: ALUMINUM/MAGNESIUM SUSP 30 ML UDC PO PRN (20:47)
[2024-02-27] MEDS ORDERED: ONDANSETRON INJ 2 MG/ML 2 ML VIAL IV PRN (20:47)
[2024-02-27] MEDS ORDERED: MAGNESIUM HYDROXIDE SUSP 30 ML UDC PO PRN (20:47)
[2024-02-27] MEDS ORDERED: FAMOTIDINE 20 MG TAB PO PRN (20:47)
[2024-02-27] MEDS: MoRPHine SULFATE 4 MG/ML 1 ML CARP\\VIAL IV PRN (21:12)
[2024-02-27] MEDS: MELATONIN 3 MG TAB PO PRN (22:11)
[2024-02-27] MEDS: CYCLOBENZAPRINE HCL 10 MG TAB PO SCH (22:11)
[2024-02-27] MEDS: DOCUSATE SODIUM 100 MG CAP PO SCH (22:11)
[2024-02-27] MEDS: ENOXAPARIN INJ 40 MG/0.4 ML SYR SQ SCH (22:12)
[2024-02-27] MEDS: GABAPENTIN 300 MG CAP PO SCH (22:12)
[2024-02-27] MEDS: ACETAMINOPHEN 500 MG TAB PO SCH (22:12)
--- NOTE | 2024-02-27 22:31 | Magnetic Resonance Report ---
Exam(s): MRI L SPINE Without Contrast EXAM: MR Lumbar Spine Without Intravenous Contrast CLINICAL HISTORY: Reason for exam: low back pain, urinary retention. TECHNIQUE: Magnetic resonance images of the lumbar spine without intravenous contrast in multiple planes. COMPARISON: No relevant prior studies available. FINDINGS: Vertebrae: There are 5 lumbar type vertebral bodies with a mild generalized tripped and left and normal lumbar lordosis. There is normal vertebral body height and alignment. The bone marrow signal is normal. No acute fracture. There is mild bilateral sacroiliac joint arthropathy. Spinal cord: The conus is normal size, shape and signal characteristics, terminating at T12-L1. Soft tissues: The iliopsoas, paraspinous intraspinous muscles normal. The aorta and IVC flow voids are intact. There is a the kidneys are unremarkable. DISCS/SPINAL CANAL/NEURAL FORAMINA: L1-L2: The intervertebral disc is normal. There is minimal to mild facet joint arthropathy with mild synovitis. L2-L3: There is mild disc degeneration with annular disc bulge causing a mild subarticular recess stenosis with disc extending to the neural foramina without evidence of impingement or significant stenosis. There is minimal facet arthropathy with mild synovitis. L3-L4: There is mild disc degeneration with annular disc bulge causing mild subarticular recess stenosis with disc and osteophyte extending to the neural foramina causing a mild left stenosis without evidence of neural impingement. There is mild facet arthropathy with mild synovitis. L4-L5: There is mild disc degeneration with annular disc bulge causing a mild subarticular recess stenosis with superimposed congenitally short pedicles causing a moderate spinal canal stenosis with thecal sac at measured 0.78 cm. His disc and osteophyte extending to the neural foramina causing a moderate right and mild left stenosis with mild impingement of the right L4 nerve root ganglion. There is mild facet joint arthropathy with mild synovitis. L5-S1: The intervertebral disc is normal. There is mild facet arthropathy with mild synovitis. IMPRESSION: 1. Mild disc degeneration at L2-3, L3-4 and L4-5 with annular disc bulging causing a mild subarticular recess stenosis without evidence of neural impingement. 2. There is a moderate spinal canal stenosis at L4-5. 3. There is a moderate right and mild left L4-5 neural foraminal stenosis with mild impingement of the right L4 nerve root ganglion. 4. Minimal to mild facet arthropathy with mild synovitis. 5. Mild bilateral sacral joint arthropathy. 6. No evidence of fracture, infection, tumor or arachnoiditis. Electronically signed by: Ofelia Downey MD 02/27/24 22:30 PM
[2024-02-28] MEDS: ALBUTEROL HFA 8 GM INHALER INH PRN (04:06)
--- NOTE | 2024-02-28 07:36 | Urology Consultation ---
<Statement entered by Tigre Pena MD - 02/28/24 12:52> I have discussed Mr. Whiting' case with JOSEPH Hartman and agree with the above documentation. Abrams catheter per primary team. Reasonable to attempt a voiding trial when he is ambulatory. Urology can write outpatient follow-up for voiding trial if needed. -Tigre Pena MD. Date of Consultation February 28, 2024 Assessment & Plan (1) Urinary retention: (2) Scrotal pain: Plan 43-year-old male known to the urology department who was consulted for urinary retention. Prior to hospitalization patient admitted to urinary hesitancy and was taking Flomax He is denying any signs or symptoms of a UTI Abrams catheter was placed in the ER-draining clear yellow Maintain Abrams catheter Continue Flomax Once patient is ambulatory may consider TOV If Abrams catheter able to be removed would recommend bladder scans every 6 hours and as needed Other medical management and care per primary team We can arrange outpatient follow-up for patient if TOV is needed after discharge We will sign out, please reconsult as needed History of Present Illness Attending Physician: Tank Yo MD History of Present Illness 43-year-old male who came to the ER for chronic right hip pain secondary to fall requiring surgical intervention. In the ER he was unable to ambulate and unable to void. Urology was consulted due to urinary retention. Abrams catheter placed in the emergency department. Patient currently on Flomax. Labs reviewed WBC 7.97 Hemoglobin 13.9 1.05 Urinalysis or culture was not obtained CT of the hip on 02/26 revealed no evidence of a dislocation or fracture He is resting comfortably in bed. He is complaining of scrotal pain that is intermittent on the left side can be 10 out of 10 and dull achy other times. Pain was not relieved by his varicocelectomy. He has been taking Flomax outpatient. He also admits to urinary hesitancy on a daily basis prior to Abrams catheter being placed. States he is having right hip spasms that exacerbate both the right hip pain and scrotal pain. Denies bladder spasms. Has never had a Abrams catheter in the past. Denies dysuria, gross hematuria, fevers, chills, nausea, and vomiting. Allergies Allergy/AdvReac Type Severity Reaction Status Date / Time No Known Allergies Allergy Verified 07/26/23 05:57 Home Medications Medication Instructions Recorded Confirmed Type cetirizine 10 mg capsule 10 mg PO QAM 07/11/23 02/27/24 History meloxicam 15 mg tablet 15 mg PO QAM 07/11/23 02/27/24 History omeprazole 20 mg capsule,delayed 20 mg PO QAM 07/11/23 02/27/24 History release albuterol sulfate 90 mcg/actuation 1 inh inhalation QID PRN 08/09/23 02/27/24 History aerosol inhaler sob/wheezing tamsulosin 0.4 mg capsule 0.4 mg PO DAILY #90 caps 09/03/23 02/27/24 Rx Patient History Medical History Left varicocele GERD (gastroesophageal reflux disease) Allergic rhinitis Chronic pain Bulging lumbar disc DDD (degenerative disc disease), lumbar Surgical History Hx of left inguinal hernia repair (~05/17/23) History of repair of right hip joint Hx of appendectomy Hx of shoulder surgery lt, labrum, AC and Bursa Social History Smoking Status: Never smoker Tobacco Type: Smokeless Tobacco (Dip or Chew) Second Hand Exposure: No; Do You Dip or Chew Tobacco: Yes; Hx Alcohol Use: No Hx Substance Use: No Preferred Language: Yoruba Communication Ability: Effective Home Care Liaison Required: No Beliefs That Will Affect Care: None Current Living Situation: Other Current Living Situation Comment: CUSTODIAL Feels Safe at Home: Yes Assistive Devices: Glasses and Walker Review of Systems Constitutional: as per Subjective / HPI Genitourinary: + as per Subjective / HPI Physical Exam Constitutional: average body habitus; no acute distress Respiratory: normal respiratory effort and able to speak in complete sentences Musculoskeletal: Extremities: extremities normal to inspection Psychiatric: Orientation: alert and oriented x 3 Genitourinary: Abrams catheter draining clear yellow Results & Data Vital Signs (Past 12 Hours) Vital Signs Temp Pulse Resp BP Pulse Ox O2 Del Method 02/27/24 21:00 36.6 C 61 18 104/66 97 Room Air 02/27/24 20:15 Room Air PG Care Time/CCT Total # of Minutes Spent Total Time Spent with Patient: Total time spent is greater than 50% in coordination of care (as documented) at patient's floor/unit and/or counseling patient: Coding Level of Care Code 37085 IN/OBS CONSULT LVL 3,45M Diagnoses Urinary retention R33.9 Scrotal pain N50.82
[2024-02-28] MEDS: MELOXICAM 7.5 MG TAB PO SCH (07:41)
[2024-02-28] MEDS: CETIRIZINE HCL 10 MG TABLET PO SCH (07:41)
[2024-02-28] MEDS: TAMSULOSIN HCL 0.4 MG CAP PO SCH (07:42)
[2024-02-28] MEDS: PANTOprazole 40 MG TAB PO SCH (07:42)
[2024-02-28 07:48] LABS: Basophils # (auto) 0.05 K/uL (0.00-0.20); Basophils % (auto) 0.8 %; Eosinophils # (auto) 0.14 K/uL (0.00-0.50); Eosinophils % (auto) 2.3 %; Hematocrit (blood only) 41.5 % (42.0-52.0); Hemoglobin 13.9 g/dl (14.0-18.0); Immature Granulocytes # (auto) 0.01 K/uL (0.01-0.20); Immature Granulocytes % (auto) 0.2 %; Lymphocytes # (auto) 2.05 K/uL (1.20-3.40); Lymphocytes % (auto) 33.4 %; Mean Corpuscular Hemoglobin 30.4 pg (25.0-34.0); Mean Corpuscular Hgb Conc 33.5 g/dL (32.0-36.0); Mean Corpuscular Volume 90.8 fL (80.0-100.0); Mean Platelet Volume 9.3 fL (9.4-12.4); Monocytes # (auto) 0.51 K/uL (0.11-0.59); Monocytes % (auto) 8.3 %; Neutrophils # (auto) 3.37 K/uL (1.40-6.50); Platelet Count 205 K/uL (130-400); RDW Standard Deviation 39.8 fL (36.4-46.3); Red Blood Count 4.57 M/uL (4.70-6.10); White Blood Count 6.13 K/ul (4.8-10.8)
[2024-02-28 08:04] LABS: BUN Creatinine Ratio 12.4 (10-20); Calcium 8.5 mg/dl (8.6-10.3); Creatinine Clr Calc Pharmacy 97.5 ml/min
[2024-02-28] MEDS: LIDOCAINE 5% 1 PATCH TD STA (10:07)
--- NOTE | 2024-02-28 10:43 | Orthopedic Progress Note ---
Date of Service February 28, 2024 Assessment & Plan (1) Right hip pain: Plan: IMPRESSION: R hip pain, h/o previous right hip arthroscopy, labral repair, and ORIF, likely secondarily to muscle strain vs re-current labral injury although CT scan did not show an effusion vs lumbar etiology. PT/OT Ice with easy wrap Pain control with p.o. or IV medication Muscle relaxers for spasm and pain Can be weightbearing as tolerated with crutches or walker assistance To consider MRI arthrogram of the right hip as outpatient To consider musculoskeletal ultrasound right hip To consider Prednisone taper and consult ortho spine Obtain medical record from previous surgery by [facility]. Continue care per primary service. Admission and Anticipated Discharge Date Admission Date: February 27, 2024 Subjective Severe right hip pain, spasms, tingling down leg to his foot Physical Exam Physical Exam: Right hip: Patient has significant tenderness to palpation over the hip adductor, flexor muscles greater than hamstrings; the majority of his pain is in his groin area. Patient is unable to perform right straight leg raise. He is unable to flex or extend his knee due to pain. He is positioned with his leg slightly externally rotated with a pillow under his knee, but is not shortened. He is able to lightly dorsi and plantarflex his foot and toes. His peripheral pulses are 2+. He is sensation to light is intact distally, decreased sensation over medial and anterior aspect of the thigh. He does have exquisite tenderness to palpation over the medial groin and along the medial aspect of the thigh. There is no edema, erythema or ecchymosis. Previous portals and lateral incision are well healed. + log roll hip. Results & Data Vital Signs (Past 12 Hours) Vital Signs Temp Pulse Resp BP Pulse Ox O2 Del Method 02/28/24 07:53 36.4 C L 52 L 16 96/61 L 100 Room Air Laboratory Results Laboratory Results WBC 6.13 K/ul (4.8-10.8) 02/28/24 07:30 RBC 4.57 M/uL (4.70-6.10) L 02/28/24 07:30 Hgb 13.9 g/dl (14.0-18.0) L 02/28/24 07:30 Hct 41.5 % (42.0-52.0) L 02/28/24 07:30 MCV 90.8 fL (80.0-100.0) 02/28/24 07:30 MCH 30.4 pg (25.0-34.0) 02/28/24 07:30 MCHC 33.5 g/dL (32.0-36.0) 02/28/24 07:30 RDW Std Deviation 39.8 fL (36.4-46.3) 02/28/24 07: RDW Coeff of Neyr 12.0 % (11.5-14.5) 02/28/24 07:30 Plt Count 205 K/uL (130-400) 02/28/24 07:30 MPV 9.3 fL (9.4-12.4) L 02/28/24 07:30 Immature Gran % (Auto) 0.2 % 02/28/24 07:30 Neut % (Auto) 55.0 % 02/28/24 07:30 Lymph % (Auto) 33.4 % 02/28/24 07:30 [place] % (Auto) 8.3 % 02/28/24 07:30 Eos % (Auto) 2.3 % 02/28/24 07:30 Baso % (Auto) 0.8 % 02/28/24 07:30 Neut # (Auto) 3.37 K/uL (1.40-6.50) 02/28/24 07:30 Lymph # (Auto) 2.05 K/uL (1.20-3.40) 02/28/24 07:30 [place] # (Auto) 0.51 K/uL (0.11-0.59) 02/28/24 07:30 Eos # (Auto) 0.14 K/uL (0.00-0.50) 02/28/24 07:30 Baso # (Auto) 0.05 K/uL (0.00-0.20) 02/28/24 07:30 Immature Gran # (Auto) 0.01 K/uL (0.01-0.20) 02/28/24 07:30 PT 11.4 Seconds (9.0-12.0) 02/27/24 13:52 INR 1.1 (0.9-1.1) 02/27/24 13:52 APTT 25 Seconds (21-31) 02/27/24 13:52 PTT Ratio 0.9 02/27/24 13:52 Sodium 144 mmol/L (136-145) 02/28/24 07:30 Potassium 4.0 mmol/L (3.5-5.1) 02/28/24 07:30 Chloride 106 mmol/L (98-107) 02/28/24 07:30 Carbon Dioxide 32 mmol/L (21-32) 02/28/24 07:30 Anion Gap 6 (3-11) 02/28/24 07:30 BUN 13 mg/dl (6-23) 02/28/24 07:30 Creatinine 1.05 mg/dl (0.6-1.4) 02/28/24 07:30 Est Cr Clr Drug Dosing 97.5 ml/min 02/28/24 07:30 eGFR 89.21 02/28/24 07:30 BUN/Creatinine Ratio 12.4 (10-20) 02/28/24 07:30 Glucose 85 mg/dl (70-99(Fasting)) 02/28/24 07:30 Calcium 8.5 mg/dl (8.6-10.3) L 02/28/24 07:30 Total Bilirubin 0.5 mg/dl (0.2-1.0) 02/27/24 13:52 AST 16 U/L (13-39) 02/27/24 13:52 ALT 11 U/L (7-52) 02/27/24 13:52 Alkaline Phosphatase 68 U/L (34-104) 02/27/24 13:52 Total Protein 6.7 gm/dl (6.0-8.3) 02/27/24 13:52 Albumin 4.3 gm/dl (3.4-5.0) 02/27/24 13:52 Globulin 2.4 gm/dl (2.5-4.0) L 02/27/24 13:52 Albumin/Globulin Ratio 1.8 (0.9-2) 02/27/24 13:52 Nasal Screen MRSA (PCR) Negative (Negative) 02/28/24 03:58 Impressions Hip/Pelvis X-Ray 02/27/24 13:57 XR hip RT 2V w pelvis HISTORY: 43 years-old Male severe R hip pain s/p feeling pop while twisting COMPARISON: None TECHNIQUE: AP view of the pelvis with 2 views of the right hip FINDINGS: Intact right proximal femoral ORIF hardware. Surgical clips project over the right hemipelvis. Minimal osteoarthritis of the hips. No acute fracture, dislocation or osseous erosion. No opaque foreign bodies. IMPRESSION: 1. No acute fracture or dislocation. 2. Intact right proximal femoral hardware. ACT 112: Negative or not required by law. The above report was generated using voice recognition software. It may contain grammatical, syntax or spelling errors. Electronically signed by: Jordy Yung M.D. 02/27/2024 2:[address] 02/27/24 14:33 CT hip RT wo con CLINICAL HISTORY: R hip pain, felt pop when rotating, severe pain TECHNIQUE: Multidetector row helical CT of the right hip was performed without intravenous contrast. Coronal and sagittal reformations were obtained. Automated dose lowering techniques and/or adjustment according to patient size were utilized for this examination. CT DOSE: 419.18 mGy.cm Comparison: None available at the time of this dictation. FINDINGS: The osseous structures are without fracture or dislocation. A nail through the femoral neck is seen. The joint spaces are maintained. No joint effusion is seen. The soft tissues are unremarkable. IMPRESSION: No evidence of acute fracture or dislocation. ACT 112: Negative or not required by law. Electronically signed by: Ian Romero M.D. 02/27/2024 3:39 PM Lumbar Spine MRI 02/27/24 18:06 Exam(s): MRI L SPINE Without Contrast EXAM: MR Lumbar Spine Without Intravenous Contrast CLINICAL HISTORY: Reason for exam: low back pain, urinary retention. TECHNIQUE: Magnetic resonance images of the lumbar spine without intravenous contrast in multiple planes. COMPARISON: No relevant prior studies available. FINDINGS: Vertebrae: There are 5 lumbar type vertebral bodies with a mild generalized tripped and left and normal lumbar lordosis. There is normal vertebral body height and alignment. The bone marrow signal is normal. No acute fracture. There is mild bilateral sacroiliac joint arthropathy. Spinal cord: The conus is normal size, shape and signal characteristics, terminating at T12-L1. Soft tissues: The iliopsoas, paraspinous intraspinous muscles normal. The aorta and IVC flow voids are intact. There is a the kidneys are unremarkable. DISCS/SPINAL CANAL/NEURAL FORAMINA: L1-L2: The intervertebral disc is normal. There is minimal to mild facet joint arthropathy with mild synovitis. L2-L3: There is mild disc degeneration with annular disc bulge causing a mild subarticular recess stenosis with disc extending to the neural foramina without evidence of impingement or significant stenosis. There is minimal facet arthropathy with mild synovitis. L3-L4: There is mild disc degeneration with annular disc bulge causing mild subarticular recess stenosis with disc and osteophyte extending to the neural foramina causing a mild left stenosis without evidence of neural impingement. There is mild facet arthropathy with mild synovitis. L4-L5: There is mild disc degeneration with annular disc bulge causing a mild subarticular recess stenosis with superimposed congenitally short pedicles causing a moderate spinal canal stenosis with thecal sac at measured 0.78 cm. His disc and osteophyte extending to the neural foramina causing a moderate right and mild left stenosis with mild impingement of the right L4 nerve root ganglion. There is mild facet joint arthropathy with mild synovitis. L5-S1: The intervertebral disc is normal. There is mild facet arthropathy with mild synovitis. IMPRESSION: 1. Mild disc degeneration at L2-3, L3-4 and L4-5 with annular disc bulging causing a mild subarticular recess stenosis without evidence of neural impingement. 2. There is a moderate spinal canal stenosis at L4-5. 3. There is a moderate right and mild left L4-5 neural foraminal stenosis with mild impingement of the right L4 nerve root ganglion. 4. Minimal to mild facet arthropathy with mild synovitis. 5. Mild bilateral sacral joint arthropathy. 6. No evidence of fracture, infection, tumor or arachnoiditis. Electronically signed by: Ofelia Downey MD 02/27/24 22:30 PM
--- NOTE | 2024-02-28 11:15 | Hospitalist Progress Note ---
Date of Service February 28, 2024 Assessment & Plan (1) Right hip pain: (2) Inability to ambulate due to hip: (3) Urinary retention: Plan This is a 43 yr old M who has a significant PMH of seasonal allergies, chronic low back pain, chronic R hip pain 2/2 fall requiring surgery intervention, hx of medical marijuana use who presents to ED 2/2 R hip pain. R hip pain Inability to ambulate In setting of previous right hip arthroscopy, labral repair, and ORIF, likely 2/2 to muscle strain vs re-current labral injury, per ortho Ortho spine consulted for further eval of spinal canal stenosis L4-5, foraminal stenosis as a source of hip/groin pain Discussed with ortho- unable to obtain specific MRI R hip and US here, may need to consider transfer to [facility] [place] Continue gabapentin 300mg TID, Flexeril 10mg TID today, scheduled Tylenol, added lidocaine patch, ice, Medrol dosepak Can be weightbearing as tolerated with crutches or walker assistance Urinary Retention Previous hx of urinary hesitancy Continue flomax, maintain paulino cath for now per urology TOV once able to ambulate DVT ppx: SQ lovenox Code: FULL PCP: HOWIE Giron Dispo: admited to med/surg Patient seen in collaboration with Dr. Yo. Please see addendum. I spent a total of 50 minutes minutes reviewing notes, outpatient records, labs, medication, coordinating, documenting and providing care for this patient excluding time spent in the performance of separately billed services. Admission and Anticipated Discharge Date Admission Date: February 27, 2024 Supervising Physician Co-Signing Physician Notes Patient seen and examined at bedside. He continues to report pain on his hip; reports overall slight improvement Continue on muscle relaxant and pain medication Urology on board for urinary retention; recommended to continue Paulino catheter I have reviewed the advanced practitioner's documentation, and I agree with, and take responsibility for the plan of care I spent a total of 20 minutes coordinating, documenting, and providing care for this patient excluding time spent in the performance of separately billed services. All of the aforementioned completed while collaborating with the assigned advanced practitioner for a full treatment plan Subjective Seen and examined in 361-1. Continues to have pain in R hip area, primarily in groin. Exacerbated with movement and describes a spasm-like pain. Also with pain in lower back which is chronic. Difficulty with ambulation. Has a paulino in due to urinary retention but does not have paulino at baseline. No F/C, CP, SOB, N/V, abd pain, dysuria, diarrhea or constipation. Review of Systems Review of Systems: At least ten systems reviewed and negative except as noted in the HPI. Physical Exam Physical Exam: Gen: WD/WN, NAD, resting comfortably in bed, A&Ox3 HEENT: Normocephalic, atraumatic, conjunctivae moist, sclerae anicteric, mucous membranes moist Lung: Clear to Auscultation bilaterally, no wheezes/rales/rhonchi Heart: Regular rate, regular rhythm, no murmurs, rubs, or gallops Abdomen: Soft, NT, ND +BS x 4 : Paulino Extremities: + TTP R anterior thigh extending medially to groin, no edema Skin: Warm, no rash Results & Data Results & Data Vital Signs (Past 12 Hours) Vital Signs Temp Pulse Resp BP Pulse Ox O2 Del Method 02/28/24 07:53 36.4 C L 52 L 16 96/61 L 100 Room Air Laboratory Results Short CBC 02/28/24 Range/Units 07:30 WBC 6.13 (4.8-10.8) K/ul Hgb 13.9 L (14.0-18.0) g/dl Hct 41.5 L (42.0-52.0) % Plt Count 205 (130-400) K/uL BMP 02/28/24 07:30 Sodium 144 Potassium 4.0 Chloride 106 Carbon Dioxide 32 BUN 13 Creatinine 1.05 Glucose 85 Calcium 8.5 L Diagnostic Findings Hip/Pelvis X-Ray 02/27/24 13:57 XR hip RT 2V w pelvis HISTORY: 43 years-old Male severe R hip pain s/p feeling pop while twisting COMPARISON: None TECHNIQUE: AP view of the pelvis with 2 views of the right hip FINDINGS: Intact right proximal femoral ORIF hardware. Surgical clips project over the right hemipelvis. Minimal osteoarthritis of the hips. No acute fracture, disloca tion or osseous erosion. No opaque foreign bodies. IMPRESSION: 1. No acute fracture or dislocation. 2. Intact right proximal femoral hardware. ACT 112: Negative or not required by law. The above report was generated using voice recognition software. It may contain grammatical, syntax or spelling errors. Electronically signed by: Jordy Yung M.D. 02/27/2024 2:[address] 02/27/24 14:33 CT hip RT wo con CLINICAL HISTORY: R hip pain, felt pop when rotating, severe pain TECHNIQUE: Multidetector row helical CT of the right hip was performed without intravenous contrast. Coronal and sagittal reformations were obtained. Automated dose lowering techniques and/or adjustment according to patient size were utilized for this examination. CT DOSE: 419.18 mGy.cm Comparison: None available at the time of this dictation. FINDINGS: The osseous structures are without fracture or dislocation. A nail through the femoral neck is seen. The joint spaces are maintained. No joint effusion is seen. The soft tissues are unremarkable. IMPRESSION: No evidence of acute fracture or dislocation. ACT 112: Negative or not required by law. Electronically signed by: Ian Romero M.D. 02/27/2024 3:39 PM Lumbar Spine MRI 02/27/24 18:06 Exam(s): MRI L SPINE Without Contrast EXAM: MR Lumbar Spine Without Intravenous Contrast CLINICAL HISTORY: Reason for exam: low back pain, urinary retention. TECHNIQUE: Magnetic resonance images of the lumbar spine without intravenous contrast in multiple planes. COMPARISON: No relevant prior studies available. FINDINGS: Vertebrae: There are 5 lumbar type vertebral bodies with a mild generalized tripped and left and normal lumbar lordosis. There is normal vertebral body height and alignment. The bone marrow signal is normal. No acute fracture. There is mild bilateral sacroiliac joint arthropathy. Spinal cord: The conus is normal size, shape and signal characteristics, terminating at T12-L1. Soft tissues: The iliopsoas, paraspinous intraspinous muscles normal. The aorta and IVC flow voids are intact. There is a the kidneys are unremarkable. DISCS/SPINAL CANAL/NEURAL FORAMINA: L1-L2: The intervertebral disc is normal. There is minimal to mild facet joint arthropathy with mild synovitis. L2-L3: There is mild disc degeneration with annular disc bulge causing a mild subarticular recess stenosis with disc extending to the neural foramina without evidence of impingement or significant stenosis. There is minimal facet arthropathy with mild synovitis. L3-L4: There is mild disc degeneration with annular disc bulge causing mild subarticular recess stenosis with disc and osteophyte extending to the neural foramina causing a mild left stenosis without evidence of neural impingement. There is mild facet arthropathy with mild synovitis. L4-L5: There is mild disc degeneration with annular disc bulge causing a mild subarticular recess stenosis with superimposed congenitally short pedicles causing a moderate spinal canal stenosis with thecal sac at measured 0.78 cm. His disc and osteophyte extending to the neural foramina causing a moderate right and mild left stenosis with mild impingement of the right L4 nerve root ganglion. There is mild facet joint arthropathy with mild synovitis. L5-S1: The intervertebral disc is normal. There is mild facet arthropathy with mild synovitis. IMPRESSION: 1. Mild disc degeneration at L2-3, L3-4 and L4-5 with annular disc bulging causing a mild subarticular recess stenosis without evidence of neural impingement. 2. There is a moderate spinal canal stenosis at L4-5. 3. There is a moderate right and mild left L4-5 neural foraminal stenosis with mild impingement of the right L4 nerve root ganglion. 4. Minimal to mild facet arthropathy with mild synovitis. 5. Mild bilateral sacral joint arthropathy. 6. No evidence of fracture, infection, tumor or arachnoiditis. Electronically signed by: Ofelia Downey MD 02/27/24 22:30 PM
[2024-02-28] MEDS ORDERED: methylPREDNISolone 4 MG TAB, 6 DAY TAPER PO SCH (17:30)
[2024-02-28] MEDS: IBUPROFEN 600 MG TAB PO PRN (18:32)
[2024-02-28] MEDS: methylPREDNISolone 4 MG TAB PO SCH (20:41)
[2024-02-29] MEDS: methylPREDNISolone 4 MG TAB PO SCH ×2 (06:11→20:50)
[2024-02-29 08:08] LABS: Hemoglobin 14.8 g/dl (14.0-18.0); Mean Corpuscular Hemoglobin 30.5 pg (25.0-34.0); Mean Corpuscular Hgb Conc 33.6 g/dL (32.0-36.0); Mean Corpuscular Volume 90.7 fL (80.0-100.0); Mean Platelet Volume 9.8 fL (9.4-12.4); Platelet Count 235 K/uL (130-400); RDW Standard Deviation 40.2 fL (36.4-46.3); Red Blood Count 4.85 M/uL (4.70-6.10); White Blood Count 8.26 K/ul (4.8-10.8)
[2024-02-29 08:23] LABS: BUN Creatinine Ratio 14.4 (10-20); Calcium 9.2 mg/dl (8.6-10.3); Creatinine Clr Calc Pharmacy 86.8 ml/min; Potassium 4.7 mmol/L (3.5-5.1)
--- NOTE | 2024-02-29 10:13 | Orthopedic Progress Note ---
Date of Service February 29, 2024 Assessment & Plan (1) Right hip pain: Plan: IMPRESSION: R hip pain, h/o previous right hip arthroscopy, labral repair, and ORIF, likely secondarily to muscle strain vs re-current labral injury although CT scan did not show an effusion vs lumbar etiology. PT/OT Ice with easy wrap Pain control with p.o. or IV medication Muscle relaxers for spasm and pain Can be weightbearing as tolerated with crutches or walker assistance To consider MRI arthrogram of the right hip as outpatient To consider musculoskeletal ultrasound right hip To consider Prednisone taper and consult ortho spine Obtain medical record from previous surgery by [facility]. Continue care per primary service. Admission and Anticipated Discharge Date Admission Date: February 27, 2024 Subjective Patient was seen for follow-up of severe right hip pain this morning. He continues to have pain in the right groin area with intermittent radiation down the medial aspect of his thigh the is exacerbated with movement. He describes the pain as spasms but state that the muscle relaxants are help slightly. Patient has difficulty with ambulation and has not been able to participate with PT. Has a paulino in due to urinary retention. Currently he denies chest pain, shortness of breath, fever, chills, sweats, nausea, vomiting, diarrhea or numbn ess or tingling in the right lower extremity. Review of Systems Review of Systems: All systems reviewed & are unremarkable except as noted in Subjective Physical Exam Physical Exam: Right hip: There is no edema, erythema or ecchymosis. Patient has significant tenderness to palpation over the hip abductor muscles and hamstrings extending from the groin area to the posterior aspect of the knee. He does have exquisite tenderness to palpation over the medial groin and along the medial aspect of the thigh. Patient is unable to perform right straight leg raise test. He is unable to flex at his knee. He is positioned with his leg slightly externally rotated but is not shorter than the left. He is able to actively dorsi and plantarflex his foot. His peripheral pulses are 2+. He is neurovascularly intact. Results & Data Vital Signs (Past 12 Hours) Vital Signs Temp Pulse Resp BP Pulse Ox O2 Del Method 02/29/24 07:52 Room Air 02/29/24 07:38 36.5 C 75 16 144/64 H 100 Room Air 02/29/24 02:37 64 18 97 Room Air Diagnostic Findings Laboratory Results WBC 8.26 K/ul (4.8-10.8) 02/29/24 07:22 RBC 4.85 M/uL (4.70-6.10) 02/29/24 07:22 Hgb 14.8 g/dl (14.0-18.0) 02/29/24 07:22 Hct 44.0 % (42.0-52.0) 02/29/24 07:22 MCV 90.7 fL (80.0-100.0) 02/29/24 07:22 MCH 30.5 pg (25.0-34.0) 02/29/24 07: MCHC 33.6 g/dL (32.0-36.0) 02/29/24 07: RDW Std Deviation 40.2 fL (36.4-46.3) 02/29/24 07: RDW Coeff of Nery 12.0 % (11.5-14.5) 02/29/24 07: Plt Count 235 K/uL (130-400) 02/29/24 07:22 MPV 9.8 fL (9.4-12.4) 02/29/24 07:22 Immature Gran % (Auto) 0.2 % 02/28/24 07:30 Neut % (Auto) 55.0 % 02/28/24 07:30 Lymph % (Auto) 33.4 % 02/28/24 07:30 [place] % (Auto) 8.3 % 02/28/24 07:30 Eos % (Auto) 2.3 % 02/28/24 07:30 Baso % (Auto) 0.8 % 02/28/24 07:30 Neut # (Auto) 3.37 K/uL (1.40-6.50) 02/28/24 07:30 Lymph # (Auto) 2.05 K/uL (1.20-3.40) 02/28/24 07:30 [place] # (Auto) 0.51 K/uL (0.11-0.59) 02/28/24 07:30 Eos # (Auto) 0.14 K/uL (0.00-0.50) 02/28/24 07:30 Baso # (Auto) 0.05 K/uL (0.00-0.20) 02/28/24 07:30 Immature Gran # (Auto) 0.01 K/uL (0.01-0.20) 02/28/24 07:30 PT 11.4 Seconds (9.0-12.0) 02/27/24 13:52 INR 1.1 (0.9-1.1) 02/27/24 13:52 APTT 25 Seconds (21-31) 02/27/24 13:52 PTT Ratio 0.9 02/27/24 13:52 Sodium 136 mmol/L (136-145) 02/29/24 07:22 Potassium 4.7 mmol/L (3.5-5.1) 02/29/24 07:22 Chloride 103 mmol/L (98-107) 02/29/24 07:22 Carbon Dioxide 29 mmol/L (21-32) 02/29/24 07:22 Anion Gap 4 (3-11) 02/29/24 07:22 BUN 17 mg/dl (6-23) 02/29/24 07:22 Creatinine 1.18 mg/dl (0.6-1.4) 02/29/24 07:22 Est Cr Clr Drug Dosing 86.8 ml/min 02/29/24 07:22 eGFR 77.55 02/29/24 07:22 BUN/Creatinine Ratio 14.4 (10-20) 02/29/24 07:22 Glucose 144 mg/dl (70-99(Fasting)) H 02/29/24 07:22 Calcium 9.2 mg/dl (8.6-10.3) 02/29/24 07:22 Total Bilirubin 0.5 mg/dl (0.2-1.0) 02/27/24 13:52 AST 16 U/L (13-39) 02/27/24 13:52 ALT 11 U/L (7-52) 02/27/24 13:52 Alkaline Phosphatase 68 U/L (34-104) 02/27/24 13:52 Total Protein 6.7 gm/dl (6.0-8.3) 02/27/24 13:52 Albumin 4.3 gm/dl (3.4-5.0) 02/27/24 13:52 Globulin 2.4 gm/dl (2.5-4.0) L 02/27/24 13:52 Albumin/Globulin Ratio 1.8 (0.9-2) 02/27/24 13:52 Nasal Screen MRSA (PCR) Negative (Negative) 02/28/24 03:58 Impressions Hip/Pelvis X-Ray 02/27/24 13:57 XR hip RT 2V w pelvis HISTORY: 43 years-old Male severe R hip pain s/p feeling pop while twisting COMPARISON: None TECHNIQUE: AP view of the pelvis with 2 views of the right hip FINDINGS: Intact right proximal femoral ORIF hardware. Surgical clips project over the right hemipelvis. Minimal osteoarthritis of the hips. No acute fracture, dislocation or osseous erosion. No opaque foreign bodies. IMPRESSION: 1. No acute fracture or dislocation. 2. Intact right proximal femoral hardware. ACT 112: Negative or not required by law. The above report was generated using voice recognition software. It may contain grammatical, syntax or spelling errors. Electronically signed by: Jordy Yung M.D. 02/27/2024 2:[address] 02/27/24 14:33 CT hip RT wo con CLINICAL HISTORY: R hip pain, felt pop when rotating, severe pain TECHNIQUE: Multidetector row helical CT of the right hip was performed without intravenous contrast. Coronal and sagittal reformations were obtained. Automated dose lowering techniques and/or adjustment according to patient size were utilized for this examination. CT DOSE: 419.18 mGy.cm Comparison: None available at the time of this dictation. FINDINGS: The osseous structures are without fracture or dislocation. A nail through the femoral neck is seen. The joint spaces are maintained. No joint effusion is seen. The soft tissues are unremarkable. IMPRESSION: No evidence of acute fracture or dislocation. ACT 112: Negative or not required by law. Electronically signed by: Ian Romero M.D. 02/27/2024 3:39 PM Lumbar Spine MRI 02/27/24 18:06 Exam(s): MRI L SPINE Without Contrast EXAM: MR Lumbar Spine Without Intravenous Contrast CLINICAL HISTORY: Reason for exam: low back pain, urinary retention. TECHNIQUE: Magnetic resonance images of the lumbar spine without intravenous contrast in multiple planes. COMPARISON: No relevant prior studies available. FINDINGS: Vertebrae: There are 5 lumbar type vertebral bodies with a mild generalized tripped and left and normal lumbar lordosis. There is normal vertebral body height and alignment. The bone marrow signal is normal. No acute fracture. There is mild bilateral sacroiliac joint arthropathy. Spinal cord: The conus is normal size, shape and signal characteristics, terminating at T12-L1. Soft tissues: The iliopsoas, paraspinous intraspinous muscles normal. The aorta and IVC flow voids are intact. There is a the kidneys are unremarkable. DISCS/SPINAL CANAL/NEURAL FORAMINA: L1-L2: The intervertebral disc is normal. There is minimal to mild facet joint arthropathy with mild synovitis. L2-L3: There is mild disc degeneration with annular disc bulge causing a mild subarticular recess stenosis with disc extending to the neural foramina without evidence of impingement or significant stenosis. There is minimal facet arthropathy with mild synovitis. L3-L4: There is mild disc degeneration with annular disc bulge causing mild subarticular recess stenosis with disc and osteophyte extending to the neural foramina causing a mild left stenosis without evidence of neural impingement. There is mild facet arthropathy with mild synovitis. L4-L5: There is mild disc degeneration with annular disc bulge causing a mild subarticular recess stenosis with superimposed congenitally short pedicles causing a moderate spinal canal stenosis with thecal sac at measured 0.78 cm. His disc and osteophyte extending to the neural foramina causing a moderate right and mild left stenosis with mild impingement of the right L4 nerve root ganglion. There is mild facet joint arthropathy with mild synovitis. L5-S1: The intervertebral disc is normal. There is mild facet arthropathy with mild synovitis. IMPRESSION: 1. Mild disc degeneration at L2-3, L3-4 and L4-5 with annular disc bulging causing a mild subarticular recess stenosis without evidence of neural impingement. 2. There is a moderate spinal canal stenosis at L4-5. 3. There is a moderate right and mild left L4-5 neural foraminal stenosis with mild impingement of the right L4 nerve root ganglion. 4. Minimal to mild facet arthropathy with mild synovitis. 5. Mild bilateral sacral joint arthropathy. 6. No evidence of fracture, infection, tumor or arachnoiditis. Electronically signed by: Ofelia Downey MD 02/27/24 22:30 PM
[2024-02-29] MEDS: POLYETHYLENE (MIRALAX) 17 GM PACK PO PRN (11:53)
--- NOTE | 2024-02-29 12:13 | Hospitalist Progress Note ---
Date of Service February 29, 2024 Assessment & Plan Admission and Anticipated Discharge Date Admission Date: February 27, 2024 Subjective Patient seen and examined. Still reports severe right hip pain in his groin with any movement. Endorses tenderness on his outer hip with palpation. Denies any chest pain/fever/chills overnight. Denies any abdominal pain. Results & Data Results & Data Vital Signs (Past 12 Hours) Vital Signs Temp Pulse Resp BP Pulse Ox O2 Del Method 02/29/24 07:52 Room Air 02/29/24 07:38 36.5 C 75 16 144/64 H 100 Room Air 02/29/24 02:37 64 18 97 Room Air
--- NOTE | 2024-02-29 12:16 | Hospitalist Progress Note ---
Date of Service February 29, 2024 Assessment & Plan (1) Right hip pain: (2) Inability to ambulate due to hip: (3) Urinary retention: Plan This is a 43 yr old M who has a significant PMH of seasonal allergies, chronic low back pain, chronic R hip pain 2/2 fall requiring surgery intervention, hx of medical marijuana use who presents to ED 2/2 R hip pain. Plan and assessment: R hip pain: Ambulatory dysfunction: Muscle strain versus labral injury: In setting of previous right hip arthroscopy, labral repair, and ORIF, likely 2/2 to muscle strain vs re-current labral injury, per ortho Ortho spine consulted for further eval of spinal canal stenosis L4-5, foraminal stenosis as a source of hip/groin pain Discussed with ortho- unable to obtain specific MRI R hip and US here, may need to consider transfer to [facility] [place] Continue gabapentin 300mg TID, Flexeril 10mg TID today, scheduled Tylenol, added lidocaine patch, ice, Medrol dosepak added on 02/27 Can be weightbearing as tolerated with crutches or walker assistance Urinary Retention Previous hx of urinary hesitancy Continue flomax, maintain paulino cath for now per urology TOV once able to ambulate DVT ppx: SQ lovenox Code: FULL PCP: HOWIE Giron Dispo: admited to med/surg I spent a total of 45 minutes minutes reviewing notes, outpatient records, labs, medication, coordinating, documenting and providing care for this patient excluding time spent in the performance of separately billed services. Admission and Anticipated Discharge Date Admission Date: February 27, 2024 Supervising Physician Co-Signing Physician Notes Plan of care discussed with above provider Patient continues to report pain in his right hip even on minimal movement Orthopedic on board; recommends additional imaging which is not able to be done here. Continue Medrol Dosepak I have reviewed the advanced practitioner's documentation, and I agree with, and take responsibility for the plan of care Subjective Patient seen and examined. Still reports severe right hip pain with movement in his groin. Also endorses right hip tenderness with palpation. Denies any shortness of breath/fever/chills/abdominal pain. Review of Systems Review of Systems: All systems reviewed & are unremarkable except as noted in HPI & below At least ten systems reviewed and negative except as noted in the HPI. Physical Exam Constitutional: WD/WN, vitals as above Eyes: PERRL, conjunctivae normal, anicteric sclerae ENMT: external ear and nose normal, oropharynx normal Neck: trachea midline, no thyromegaly Respiratory: normal respiratory effort, lungs clear to auscultation Cardiovascular: RRR, no murmur, no edema Chest (Breasts): normal inspection/palpation of breasts Gastrointestinal (Abdomen): normal bowel sounds, soft, nontender, no hepatosplenomegaly Musculoskeletal: no cyanosis or clubbing, extremities motor strength 5/5 (Limited ROM right hip, pain with movement) Skin: no rashes, warm and dry Neurologic: PERRL, EOMI, accommodation nl, no face palsy, no dysarthria Lymphatic: no cervical or axillary lymphadenopathy Results & Data Results & Data Vital Signs (Past 12 Hours) Vital Signs Temp Pulse Resp BP Pulse Ox O2 Del Method 02/29/24 07:52 Room Air 02/29/24 07:38 36.5 C 75 16 144/64 H 100 Room Air 02/29/24 02:37 64 18 97 Room Air Laboratory Results Laboratory Results WBC 8.26 K/ul (4.8-10.8) 02/29/24 07:22 RBC 4.85 M/uL (4.70-6.10) 02/29/24 07:22 Hgb 14.8 g/dl (14.0-18.0) 02/29/24 07:22 Hct 44.0 % (42.0-52.0) 02/29/24 07:22 MCV 90.7 fL (80.0-100.0) 02/29/24 07:22 MCH 30.5 pg (25.0-34.0) 02/29/24 07:22 MCHC 33.6 g/dL (32.0-36.0) 02/29/24 07:22 RDW Std Deviation 40.2 fL (36.4-46.3) 02/29/24 07:22 RDW Coeff of Nery 12.0 % (11.5-14.5) 02/29/24 07:22 Plt Count 235 K/uL (130-400) 02/29/24 07:22 MPV 9.8 fL (9.4-12.4) 02/29/24 07:22 Immature Gran % (Auto) 0.2 % 02/28/24 07:30 Neut % (Auto) 55.0 % 02/28/24 07:30 Lymph % (Auto) 33.4 % 02/28/24 07:30 [place] % (Auto) 8.3 % 02/28/24 07:30 Eos % (Auto) 2.3 % 02/28/24 07:30 Baso % (Auto) 0.8 % 02/28/24 07:30 Neut # (Auto) 3.37 K/uL (1.40-6.50) 02/28/24 07:30 Lymph # (Auto) 2.05 K/uL (1.20-3.40) 02/28/24 07:30 [place] # (Auto) 0.51 K/uL (0.11-0.59) 02/28/24 07:30 Eos # (Auto) 0.14 K/uL (0.00-0.50) 02/28/24 07:30 Baso # (Auto) 0.05 K/uL (0.00-0.20) 02/28/24 07:30 Immature Gran # (Auto) 0.01 K/uL (0.01-0.20) 02/28/24 07:30 PT 11.4 Seconds (9.0-12.0) 02/27/24 13:52 INR 1.1 (0.9-1.1) 02/27/24 13:52 APTT 25 Seconds (21-31) 02/27/24 13:52 PTT Ratio 0.9 02/27/24 13:52 Sodium 136 mmol/L (136-145) 02/29/24 07:22 Potassium 4.7 mmol/L (3.5-5.1) 02/29/24 07:22 Chloride 103 mmol/L (98-107) 02/29/24 07:22 Carbon Dioxide 29 mmol/L (21-32) 02/29/24 07:22 Anion Gap 4 (3-11) 02/29/24 07:22 BUN 17 mg/dl (6-23) 02/29/24 07:22 Creatinine 1.18 mg/dl (0.6-1.4) 02/29/24 07:22 Est Cr Clr Drug Dosing 86.8 ml/min 02/29/24 07:22 eGFR 77.55 02/29/24 07:22 BUN/Creatinine Ratio 14.4 (10-20) 02/29/24 07:22 Glucose 144 mg/dl (70-99(Fasting)) H 02/29/24 07:22 Calcium 9.2 mg/dl (8.6-10.3) 02/29/24 07:22 Total Bilirubin 0.5 mg/dl (0.2-1.0) 02/27/24 13:52 AST 16 U/L (13-39) 02/27/24 13:52 ALT 11 U/L (7-52) 02/27/24 13:52 Alkaline Phosphatase 68 U/L (34-104) 02/27/24 13:52 Total Protein 6.7 gm/dl (6.0-8.3) 02/27/24 13:52 Albumin 4.3 gm/dl (3.4-5.0) 02/27/24 13:52 Globulin 2.4 gm/dl (2.5-4.0) L 02/27/24 13:52 Albumin/Globulin Ratio 1.8 (0.9-2) 02/27/24 13:52 Nasal Screen MRSA (PCR) Negative (Negative) 02/28/24 03:58 Impressions Hip/Pelvis X-Ray 02/27/24 13:57 XR hip RT 2V w pelvis HISTORY: 43 years-old Male severe R hip pain s/p feeling pop while twisting COMPARISON: None TECHNIQUE: AP view of the pelvis with 2 views of the right hip FINDINGS: Intact right proximal femoral ORIF hardware. Surgical clips project over the right hemipelvis. Minimal osteoarthritis of the hips. No acute fracture, dislocation or osseous erosion. No opaque foreign bodies. IMPRESSION: 1. No acute fracture or dislocation. 2. Intact right proximal femoral hardware. ACT 112: Negative or not required by law. The above report was generated using voice recognition software. It may contain grammatical, syntax or spelling errors. Electronically signed by: Jordy Yung M.D. 02/27/2024 2:[address] 02/27/24 14:33 CT hip RT wo con CLINICAL HISTORY: R hip pain, felt pop when rotating, severe pain TECHNIQUE: Multidetector row helical CT of the right hip was performed without intravenous contrast. Coronal and sagittal reformations were obtained. Automated dose lowering techniques and/or adjustment according to patient size were utilized for this examination. CT DOSE: 419.18 mGy.cm Comparison: None available at the time of this dictation. FINDINGS: The osseous structures are without fracture or dislocation. A nail through the femoral neck is seen. The joint spaces are maintained. No joint effusion is seen. The soft tissues are unremarkable. IMPRESSION: No evidence of acute fracture or dislocation. ACT 112: Negative or not required by law. Electronically signed by: Ian Romero M.D. 02/27/2024 3:39 PM Lumbar Spine MRI 02/27/24 18:06 Exam(s): MRI L SPINE Without Contrast EXAM: MR Lumbar Spine Without Intravenous Contrast CLINICAL HISTORY: Reason for exam: low back pain, urinary retention. TECHNIQUE: Magnetic resonance images of the lumbar spine without intravenous contrast in multiple planes. COMPARISON: No relevant prior studies available. FINDINGS: Vertebrae: There are 5 lumbar type vertebral bodies with a mild generalized tripped and left and normal lumbar lordosis. There is normal vertebral body height and alignment. The bone marrow signal is normal. No acute fracture. There is mild bilateral sacroiliac joint arthropathy. Spinal cord: The conus is normal size, shape and signal characteristics, terminating at T12-L1. Soft tissues: The iliopsoas, paraspinous intraspinous muscles normal. The aorta and IVC flow voids are intact. There is a the kidneys are unremarkable. DISCS/SPINAL CANAL/NEURAL FORAMINA: L1-L2: The intervertebral disc is normal. There is minimal to mild facet joint arthropathy with mild synovitis. L2-L3: There is mild disc degeneration with annular disc bulge causing a mild subarticular recess stenosis with disc extending to the neural foramina without evidence of impingement or significant stenosis. There is minimal facet arthropathy with mild synovitis. L3-L4: There is mild disc degeneration with annular disc bulge causing mild subarticular recess stenosis with disc and osteophyte extending to the neural foramina causing a mild left stenosis without evidence of neural impingement. There is mild facet arthropathy with mild synovitis. L4-L5: There is mild disc degeneration with annular disc bulge causing a mild subarticular recess stenosis with superimposed congenitally short pedicles causing a moderate spinal canal stenosis with thecal sac at measured 0.78 cm. His disc and osteophyte extending to the neural foramina causing a moderate right and mild left stenosis with mild impingement of the right L4 nerve root ganglion. There is mild facet joint arthropathy with mild synovitis. L5-S1: The intervertebral disc is normal. There is mild facet arthropathy with mild synovitis. IMPRESSION: 1. Mild disc degeneration at L2-3, L3-4 and L4-5 with annular disc bulging causing a mild subarticular recess stenosis without evidence of neural impingement. 2. There is a moderate spinal canal stenosis at L4-5. 3. There is a moderate right and mild left L4-5 neural foraminal stenosis with mild impingement of the right L4 nerve root ganglion. 4. Minimal to mild facet arthropathy with mild synovitis. 5. Mild bilateral sacral joint arthropathy. 6. No evidence of fracture, infection, tumor or arachnoiditis. Electronically signed by: Ofelia Downey MD 02/27/24 22:30 PM
[2024-02-29] MEDS: POLYETHYLENE (MIRALAX) 17 GM PACK PO SCH (13:02)
--- NOTE | 2024-02-29 16:36 | Orthopedic Consultation ---
Date of Service February 29, 2024 History of Present Illness Reason for Consultation: Low back pain. Right hip pain. Requesting Physician: . Attending Physician: Tank Yo MD 43 yr old M who has a significant PMH of seasonal allergies, chronic low back pain, chronic R hip pain 2/2 fall requiring surgery intervention, hx of medical marijuana use who presents to ED 2/2 R hip pain. He is a prisoner at [facility]. Pt states today he was trying to get up from his bed when he got intense R hip pain that caused him to grab the sink and sit back down. When he tried to get up again he felt a pop in his right him and he went down to the ground. His cellmate helped him up but due to the intense pain he was brought to the ED. He states approx 1 year ago he had R hip surgery after a sustained fall where he also tore his labrum. He states this feels similar. "It feels like something is being pushed out or all balled up in there." He reports chronic stabbing pain to the R hip with numbness/tingling to the RLE. This was all present before today. He also reports chronic urinary hesitancy and urgency. He also reports inability to urinate at times. He denies any stool incontinence or bowel/bladder anesthesia. He denies any recent f/c/s, chest pain, sob, n/v/d. His appetite has been normal. Thus far workup in ED has been unremarkable. He underwent a right hip x-ray which revealed intact right proximal femoral ORIF hardware. CT scan concurred with no evidence of fracture or dislocation. CBC and CMP was drawn unremarkable except for a mildly decreased hemoglobin at 13.9. Currently his pain is significant 10 out of 10 and he has had an inability to actively move his right lower extremity. Patient reports he has some limited chronic low back pain, but for the most part notes his main symptoms being in the right hip region with range of motion of the hip very similar to or the same as what he had prior to his prior hip surgery with labral reattachment. Exam reveals the patient to be handcuffed to the bed, but has intact strength for EHL, ankle plantar dorsiflexion, knee flexion extension strength and hip flexion strength, but there was pain noted on attempts at trying to extend the right knee and the hip region and also flex the right hip. EXAM: MR Lumbar Spine Without Intravenous Contrast February 27, 2024 CLINICAL HISTORY: Reason for exam: low back pain, urinary retention. COMPARISON: No relevant prior studies available. FINDINGS: Vertebrae: There are 5 lumbar type vertebral bodies with a mild generalized tripped and left and normal lumbar lordosis. There is normal vertebral body height and alignment. The bone marrow signal is normal. No acute fracture. There is mild bilateral sacroiliac joint arthropathy. Spinal cord: The conus is normal size, shape and signal characteristics, terminating at T12-L1. Soft tissues: The iliopsoas, paraspinous intraspinous muscles normal. The aorta and IVC flow voids are intact. There is a the kidneys are unremarkable. DISCS/SPINAL CANAL/NEURAL FORAMINA: L1-L2: The intervertebral disc is normal. There is minimal to mild facet joint arthropathy with mild synovitis. L2-L3: There is mild disc degeneration with annular disc bulge causing a mild subarticular recess stenosis with disc extending to the neural foramina without evidence of impingement or significant stenosis. There is minimal facet arthropathy with mild synovitis. L3-L4: There is mild disc degeneration with annular disc bulge causing mild subarticular recess stenosis with disc and osteophyte extending to the neural foramina causing a mild left stenosis without evidence of neural impingement. There is mild facet arthropathy with mild synovitis. L4-L5: There is mild disc degeneration with annular disc bulge causing a mild subarticular recess stenosis with superimposed congenitally short pedicles causing a moderate spinal canal stenosis with thecal sac at measured 0.78 cm. His disc and osteophyte extending to the neural foramina causing a moderate right and mild left stenosis with mild impingement of the right L4 nerve root ganglion. There is mild facet joint arthropathy with mild synovitis. L5-S1: The intervertebral disc is normal. There is mild facet arthropathy with mild synovitis. IMPRESSION: 1. Mild disc degeneration at L2-3, L3-4 and L4-5 with annular disc bulging causing a mild subarticular recess stenosis without evidence of neural impingement. 2. There is a moderate spinal canal stenosis at L4-5. 3. There is a moderate right and mild left L4-5 neural foraminal stenosis with mild impingement of the right L4 nerve root ganglion. 4. Minimal to mild facet arthropathy with mild synovitis. 5. Mild bilateral sacral joint arthropathy. Review of MRI images from February 27, 2024 of the lumbar spine, is my separate interpretation, this reveals the L5-S1 disc to be unremarkable, L4-5 reveals broad-based disc bulge with some facet arthropathy. There is at most only moderate canal stenosis that there is some lateral recess stenosis bilaterally and some developing moderate foraminal narrowing bilaterally. L3-4 and above is relatively unremarkable outside of some slight loss of signal intensity. Limited facet findings at the other levels from L2 down to S1 noted. Impression: Main complaint of right hip pain, development of some chronic low back pain, but no significant canal stenosis, there is some moderate foraminal stenosis at L4-5 and potentially a contribution from the lateral recess region at the L4-5 level. Plan: I did discuss with the patient the findings on the MRI, specifically he does have some developing stenosis at the L4-5 level but it is not severe, it is only moderate at most. There is some also associated foraminal narrowing at that level and these findings along the lateral recess bilaterally could be causing some limited symptomatology in the L4 or L5 distribution, but there is no evidence of any instability, facet changes are noted which also might contribute to chronic low back pain. I related the patient that he does not have any significant stenosis or instability evidence that would necessitate any operative intervention, but I do think the patient would benefit from evaluation by pain management whereas he might benefit from injections in around the L4-5 level. It is to note that the patient's main complaint though is centering around his right hip region, status post prior labral repair. Allergies Allergy/AdvReac Type Severity Reaction Status Date / Time No Known Allergies Allergy Verified 07/26/23 05:57 Home Medications Medication Instructions Recorded Confirmed Type cetirizine 10 mg capsule 10 mg PO QAM 07/11/23 02/27/24 History meloxicam 15 mg tablet 15 mg PO QAM 07/11/23 02/27/24 History omeprazole 20 mg capsule,delayed 20 mg PO QAM 07/11/23 02/27/24 History release albuterol sulfate 90 mcg/actuation 1 inh inhalation QID PRN 08/09/23 02/27/24 History aerosol inhaler sob/wheezing tamsulosin 0.4 mg capsule 0.4 mg PO DAILY #90 caps 09/03/23 02/27/24 Rx Past Med/Surg History Problem List (Updated 02/27/24 @ 22:44 by Noble Freedman PA-C) Urinary retention (Acute) Inability to ambulate due to hip (Acute) Right hip pain (Acute) Urinary hesitancy Scrotal pain (Acute) Testicular pain Epididymitis Medical History Left varicocele GERD (gastroesophageal reflux disease) Allergic rhinitis Chronic pain Bulging lumbar disc DDD (degenerative disc disease), lumbar Surgical History Hx of left inguinal hernia repair (~05/17/23) History of repair of right hip joint Hx of appendectomy Hx of shoulder surgery lt, labrum, AC and Bursa Social History Smoking Status: Never smoker Tobacco Type: Smokeless Tobacco (Dip or Chew) Second Hand Exposure: No; Do You Dip or Chew Tobacco: Yes; Hx Alcohol Use: No Hx Substance Use: No Preferred Language: Yoruba Communication Ability: Effective Warehouse Guard Required: No Beliefs That Will Affect Care: None Current Living Situation: Other Current Living Situation Comment: RESIDENTIAL Feels Safe at Home: Yes Assistive Devices: None Review of Systems All systems reviewed & are unremarkable except as noted in HPI & below. Physical Exam . Results & Data Results & Data Laboratory Results . Diagnostic Findings . PG Care Time/CCT Total # of Minutes Spent Total Time Spent with Patient: Total time spent is greater than 50% in coordination of care (as documented) at patient's floor/unit and/or counseling patient: Coding Level of Care Code 34058 IN/OBS CONSULT LVL 2,35M
[2024-03-01] MEDS: methylPREDNISolone 4 MG TAB PO SCH (07:07)
[2024-03-01 07:42] LABS: Hematocrit (blood only) 39.8 % (42.0-52.0); Hemoglobin 13.6 g/dl (14.0-18.0); Mean Corpuscular Hemoglobin 30.4 pg (25.0-34.0); Mean Corpuscular Hgb Conc 34.2 g/dL (32.0-36.0); Mean Corpuscular Volume 88.8 fL (80.0-100.0); Platelet Count 220 K/uL (130-400); RDW Coefficient of Variation 11.9 % (11.5-14.5); RDW Standard Deviation 38.5 fL (36.4-46.3); Red Blood Count 4.48 M/uL (4.70-6.10); White Blood Count 8.76 K/ul (4.8-10.8)
[2024-03-01 07:47] LABS: Albumin Globulin Ratio 1.7 (0.9-2); Albumin Level 4.1 gm/dl (3.4-5.0); BUN Creatinine Ratio 16.7 (10-20); Bilirubin,Total 0.4 mg/dl (0.2-1.0); Creatinine Clr Calc Pharmacy 94.8 ml/min; Globulin 2.4 gm/dl (2.5-4.0); Potassium 4.4 mmol/L (3.5-5.1); Total Protein 6.5 gm/dl (6.0-8.3)
[2024-03-01] MEDS: NICOTINE 14 MG/24 HR PATCH TD SCH (07:58)
--- NOTE | 2024-03-01 10:26 | Orthopedic Progress Note ---
Date of Service March 01, 2024 Assessment & Plan (1) Right hip pain: Plan: IMPRESSION: R hip pain, h/o previous right hip arthroscopy, labral repair, and ORIF, likely secondarily to muscle strain vs re-current labral injury although CT scan did not show an effusion vs lumbar etiology, minimally improved. PT/OT Ice with easy wrap Pain control with p.o. or IV medication Muscle relaxers for spasm and pain Can be weightbearing as tolerated with crutches or walker assistance To consider MRI arthrogram of the right hip, unable to obtain in hospital To consider musculoskeletal ultrasound right hip, limited ability to preform in hospital Prednisone taper Consult ortho spine, no surgical intervention recommended, recommended cortisone injection Recommend transfer to higher level of care, [place] and evaluation by previous [facility] surgeon. Continue care per primary service. Admission and Anticipated Discharge Date Admission Date: February 27, 2024 Subjective C/O R hip pain and leg feels asleep below the knee. Physical Exam Physical Exam: RLE: 2 + DP pulse, sensation to light touch intact distally. Improved toe and ankle flexion/extension + tenderness to palpation over the hip adductor, hip flexor muscles greater than hamstrings; the majority of his pain is in his groin area. Patient is unable to perform right straight leg raise. His leg position is more extended. Decreased sensation over lateral, medial, and anterior aspect of the thigh. There is no edema, erythema or ecchymosis. Previous portals and lateral incision are well healed. + log roll hip. Results & Data Vital Signs (Past 12 Hours) Vital Signs Temp Pulse Resp BP Pulse Ox O2 Del Method 03/01/24 07:17 36.6 C 68 18 119/69 98 Room Air 03/01/24 07:08 Room Air
--- NOTE | 2024-03-01 12:14 | Hospitalist Progress Note ---
Date of Service March 01, 2024 Assessment & Plan (1) Urinary retention: (2) Inability to ambulate due to hip: (3) Right hip pain: (4) Bulging lumbar disc: Plan This is a 43 yr old M who has a significant PMH of seasonal allergies, chronic low back pain, chronic R hip pain 2/2 fall requiring surgery intervention, hx of medical marijuana use who presents to ED 2/2 R hip pain. Plan and assessment: R hip pain: Ambulatory dysfunction: Muscle strain versus labral injury: In setting of previous right hip arthroscopy, labral repair, and ORIF, likely 2/2 to muscle strain vs re-current labral injury, per ortho Ortho spine consulted for further eval of spinal canal stenosis L4-5, foraminal stenosis as a source of hip/groin pain Discussed with ortho- unable to obtain specific MRI R hip and US here, may need to consider transfer to [facility] Continue gabapentin 300mg TID, Flexeril 10mg TID today, scheduled Tylenol, added lidocaine patch, ice, Medrol dosepak added on 02/27 Can be weightbearing as tolerated with crutches or walker assistance Urinary Retention Previous hx of urinary hesitancy Continue flomax, maintain paulino cath for now per urology TOV once able to ambulate 03/01: Discussed with orthopedic surgeon Dr. Sinha from [facility]. Refusing transfer at this time. Would recommend ESR/CRP and aspiration of right hip to rule out infection prior to excepting the patient. Discussed with Dr. Platt. IR unavailable until Saturday 03/03. Will plan for aspiration then. Dr. Platt are still recommending transfer ultimately due to the patient's history of prior surgery. Full code DVT prophylaxis: Km Robles spent a total of 60 minutes minutes reviewing notes, outpatient records, labs, medication, coordinating, documenting and providing care for this patient excluding time spent in the performance of separately billed services. Admission and Anticipated Discharge Date Admission Date: February 27, 2024 Subjective Patient seen and examined. No apparent distress. Reports his pain is controlled but he is unable to move his hip. Denies any numbness/tingling. Reports a lot of pain in the groin when flexing the hip Review of Systems Review of Systems: All systems reviewed & are unremarkable except as noted in HPI & below Physical Exam Constitutional: WD/WN, vitals as above well developed and well nourished; no acute distress Eyes: PERRL, conjunctivae normal, anicteric sclerae ENMT: external ear and nose normal, oropharynx normal Neck: trachea midline, no thyromegaly Respiratory: normal respiratory effort, lungs clear to auscultation Cardiovascular: RRR, no murmur, no edema Chest (Breasts): normal inspection/palpation of breasts Gastrointestinal (Abdomen): normal bowel sounds, soft, nontender, no hepatosplenomegaly Musculoskeletal: no cyanosis or clubbing, extremities motor strength 5/5 (Severe pain when flexing right hip, tenderness on palpation) Neurologic: PERRL, EOMI, accommodation nl, no face palsy, no dysarthria Psychiatric: A+Ox3, euthymic affect Results & Data Results & Data Vital Signs (Past 12 Hours) Vital Signs Temp Pulse Resp BP Pulse Ox O2 Del Method 03/01/24 07:17 36.6 C 68 18 119/69 98 Room Air 03/01/24 07:08 Room Air Diagnostic Findings Laboratory Results WBC 8.76 K/ul (4.8-10.8) 03/01/24 06:45 RBC 4.48 M/uL (4.70-6.10) L 03/01/24 06:45 Hgb 13.6 g/dl (14.0-18.0) L 03/01/24 06:45 Hct 39.8 % (42.0-52.0) L 03/01/24 06:45 MCV 88.8 fL (80.0-100.0) 03/01/24 06:45 MCH 30.4 pg (25.0-34.0) 03/01/24 06:45 MCHC 34.2 g/dL (32.0-36.0) 03/01/24 06:45 RDW Std Deviation 38.5 fL (36.4-46.3) 03/01/24 06:45 RDW Coeff of Nery 11.9 % (11.5-14.5) 03/01/24 06:45 Plt Count 220 K/uL (130-400) 03/01/24 06:45 MPV 10.0 fL (9.4-12.4) 03/01/24 06:45 Immature Gran % (Auto) 0.2 % 02/28/24 07:30 Neut % (Auto) 55.0 % 02/28/24 07:30 Lymph % (Auto) 33.4 % 02/28/24 07:30 [place] % (Auto) 8.3 % 02/28/24 07:30 Eos % (Auto) 2.3 % 02/28/24 07:30 Baso % (Auto) 0.8 % 02/28/24 07:30 Neut # (Auto) 3.37 K/uL (1.40-6.50) 02/28/24 07:30 Lymph # (Auto) 2.05 K/uL (1.20-3.40) 02/28/24 07:30 [place] # (Auto) 0.51 K/uL (0.11-0.59) 02/28/24 07:30 Eos # (Auto) 0.14 K/uL (0.00-0.50) 02/28/24 07:30 Baso # (Auto) 0.05 K/uL (0.00-0.20) 02/28/24 07:30 Immature Gran # (Auto) 0.01 K/uL (0.01-0.20) 02/28/24 07:30 PT 11.4 Seconds (9.0-12.0) 02/27/24 13:52 INR 1.1 (0.9-1.1) 02/27/24 13:52 APTT 25 Seconds (21-31) 02/27/24 13:52 PTT Ratio 0.9 02/27/24 13:52 Sodium 139 mmol/L (136-145) 03/01/24 06:45 Potassium 4.4 mmol/L (3.5-5.1) 03/01/24 06:45 Chloride 105 mmol/L (98-107) 03/01/24 06:45 Carbon Dioxide 28 mmol/L (21-32) 03/01/24 06:45 Anion Gap 6 (3-11) 03/01/24 06:45 BUN 18 mg/dl (6-23) 03/01/24 06:45 Creatinine 1.08 mg/dl (0.6-1.4) 03/01/24 06:45 Est Cr Clr Drug Dosing 94.8 ml/min 03/01/24 06:45 eGFR 86.24 03/01/24 06:45 BUN/Creatinine Ratio 16.7 (10-20) 03/01/24 06:45 Glucose 109 mg/dl (70-99(Fasting)) H 03/01/24 06:45 Calcium 9.0 mg/dl (8.6-10.3) 03/01/24 06:45 Total Bilirubin 0.4 mg/dl (0.2-1.0) 03/01/24 06:45 AST 12 U/L (13-39) L 03/01/24 06:45 ALT 9 U/L (7-52) 03/01/24 06:45 Alkaline Phosphatase 57 U/L (34-104) 03/01/24 06:45 Total Protein 6.5 gm/dl (6.0-8.3) 03/01/24 06:45 Albumin 4.1 gm/dl (3.4-5.0) 03/01/24 06:45 Globulin 2.4 gm/dl (2.5-4.0) L 03/01/24 06:45 Albumin/Globulin Ratio 1.7 (0.9-2) 03/01/24 06:45 Nasal Screen MRSA (PCR) Negative (Negative) 02/28/24 03:58 Impressions Hip/Pelvis X-Ray 02/27/24 13:57 XR hip RT 2V w pelvis HISTORY: 43 years-old Male severe R hip pain s/p feeling pop while twisting COMPARISON: None TECHNIQUE: AP view of the pelvis with 2 views of the right hip FINDINGS: Intact right proximal femoral ORIF hardware. Surgical clips project over the right hemipelvis. Minimal osteoarthritis of the hips. No acute fracture, dislocation or osseous erosion. No opaque foreign bodies. IMPRESSION: 1. No acute fracture or dislocation. 2. Intact right proximal femoral hardware. ACT 112: Negative or not required by law. The above report was generated using voice recognition software. It may contain grammatical, syntax or spelling errors. Electronically signed by: Jordy Yung M.D. 02/27/2024 2:[address] 02/27/24 14:33 CT hip RT wo con CLINICAL HISTORY: R hip pain, felt pop when rotating, severe pain TECHNIQUE: Multidetector row helical CT of the right hip was performed without intravenous contrast. Coronal and sagittal reformations were obtained. Automated dose lowering techniques and/or adjustment according to patient size were utilized for this examination. CT DOSE: 419.18 mGy.cm Comparison: None available at the time of this dictation. FINDINGS: The osseous structures are without fracture or dislocation. A nail through the femoral neck is seen. The joint spaces are maintained. No joint effusion is seen. The soft tissues are unremarkable. IMPRESSION: No evidence of acute fracture or dislocation. ACT 112: Negative or not required by law. Electronically signed by: Ian Romero M.D. 02/27/2024 3:39 PM Lumbar Spine MRI 02/27/24 18:06 Exam(s): MRI L SPINE Without Contrast EXAM: MR Lumbar Spine Without Intravenous Contrast CLINICAL HISTORY: Reason for exam: low back pain, urinary retention. TECHNIQUE: Magnetic resonance images of the lumbar spine without intravenous contrast in multiple planes. COMPARISON: No relevant prior studies available. FINDINGS: Vertebrae: There are 5 lumbar type vertebral bodies with a mild generalized tripped and left and normal lumbar lordosis. There is normal vertebral body height and alignment. The bone marrow signal is normal. No acute fracture. There is mild bilateral sacroiliac joint arthropathy. Spinal cord: The conus is normal size, shape and signal characteristics, terminating at T12-L1. Soft tissues: The iliopsoas, paraspinous intraspinous muscles normal. The aorta and IVC flow voids are intact. There is a the kidneys are unremarkable. DISCS/SPINAL CANAL/NEURAL FORAMINA: L1-L2: The intervertebral disc is normal. There is minimal to mild facet joint arthropathy with mild synovitis. L2-L3: There is mild disc degeneration with annular disc bulge causing a mild subarticular recess stenosis with disc extending to the neural foramina without evidence of impingement or significant stenosis. There is minimal facet arthropathy with mild synovitis. L3-L4: There is mild disc degeneration with annular disc bulge causing mild subarticular recess stenosis with disc and osteophyte extending to the neural foramina causing a mild left stenosis without evidence of neural impingement. There is mild facet arthropathy with mild synovitis. L4-L5: There is mild disc degeneration with annular disc bulge causing a mild subarticular recess stenosis with superimposed congenitally short pedicles causing a moderate spinal canal stenosis with thecal sac at measured 0.78 cm. His disc and osteophyte extending to the neural foramina causing a moderate right and mild left stenosis with mild impingement of the right L4 nerve root ganglion. There is mild facet joint arthropathy with mild synovitis. L5-S1: The intervertebral disc is normal. There is mild facet arthropathy with mild synovitis. IMPRESSION: 1. Mild disc degeneration at L2-3, L3-4 and L4-5 with annular disc bulging causing a mild subarticular recess stenosis without evidence of neural impingement. 2. There is a moderate spinal canal stenosis at L4-5. 3. There is a moderate right and mild left L4-5 neural foraminal stenosis with mild impingement of the right L4 nerve root ganglion. 4. Minimal to mild facet arthropathy with mild synovitis. 5. Mild bilateral sacral joint arthropathy. 6. No evidence of fracture, infection, tumor or arachnoiditis. Electronically signed by: Ofelia Downey MD 02/27/24 22:30 PM
[2024-03-02] MEDS: methylPREDNISolone 4 MG TAB PO SCH (07:53)
[2024-03-02 10:14] LABS: Basophils # (auto) 0.04 K/uL (0.00-0.20); Basophils % (auto) 0.3 %; Eosinophils # (auto) 0.03 K/uL (0.00-0.50); Eosinophils % (auto) 0.3 %; Hematocrit (blood only) 42.7 % (42.0-52.0); Hemoglobin 14.3 g/dl (14.0-18.0); Immature Granulocytes # (auto) 0.05 K/uL (0.01-0.20); Immature Granulocytes % (auto) 0.4 %; Lymphocytes # (auto) 1.39 K/uL (1.20-3.40); Mean Corpuscular Hemoglobin 30.9 pg (25.0-34.0); Mean Corpuscular Hgb Conc 33.5 g/dL (32.0-36.0); Mean Corpuscular Volume 92.2 fL (80.0-100.0); Mean Platelet Volume 9.4 fL (9.4-12.4); Monocytes # (auto) 0.71 K/uL (0.11-0.59); Monocytes % (auto) 6.1 %; Neutrophils # (auto) 9.35 K/uL (1.40-6.50); Neutrophils % (auto) 80.9 %; Platelet Count 210 K/uL (130-400); RDW Coefficient of Variation 12.1 % (11.5-14.5); RDW Standard Deviation 41.4 fL (36.4-46.3); Red Blood Count 4.63 M/uL (4.70-6.10); White Blood Count 11.57 K/ul (4.8-10.8)
--- NOTE | 2024-03-02 10:15 | Hospitalist Progress Note ---
Date of Service March 02, 2024 Assessment & Plan (1) Urinary retention: (2) Inability to ambulate due to hip: (3) Right hip pain: (4) Bulging lumbar disc: Plan This is a 43 yr old M who has a significant PMH of seasonal allergies, chronic low back pain, chronic R hip pain 2/2 fall requiring surgery intervention, hx of medical marijuana use who presents to ED 2/2 R hip pain. Plan and assessment: R hip pain: Ambulatory dysfunction: Muscle strain versus labral injury: In setting of previous right hip arthroscopy, labral repair, and ORIF, likely 2/2 to muscle strain vs re-current labral injury, per ortho Ortho spine consulted for further eval of spinal canal stenosis L4-5, foraminal stenosis as a source of hip/groin pain Discussed with ortho- unable to obtain specific MRI R hip and US here, may need to consider transfer to [facility] Continue gabapentin 300mg TID, Flexeril 10mg TID today, scheduled Tylenol, added lidocaine patch, ice, Medrol dosepak added on 02/27 Can be weightbearing as tolerated with crutches or walker assistance Ortho's were noted to be positive on 03/01, this is likely secondary to pain and pain medications, CTM Urinary Retention Previous hx of urinary hesitancy Continue flomax, maintain paulino cath for now per urology TOV once able to ambulate 03/01: Discussed with orthopedic surgeon Dr. Sinha from [facility]. Refusing transfer at this time. Would recommend ESR/CRP and aspiration of right hip to rule out infection prior to excepting the patient. Discussed with Dr. Platt. IR unavailable until Saturday 03/03. Will plan for aspiration then. Dr. Platt are still recommending transfer ultimately due to the patient's history of prior surgery. 03/02: Transfer center reached out to [facility] for possible transfer. Recommended calling back on 03/03 to coordinate MRI scheduling to ensure the patient can get the MRI arthrogram. No accepting at this time. Full code DVT prophylaxis: Km Robles spent a total of 60 minutes minutes reviewing notes, outpatient records, labs, medication, coordinating, documenting and providing care for this patient excluding time spent in the performance of separately billed services. Admission and Anticipated Discharge Date Admission Date: February 27, 2024 Supervising Physician Co-Signing Physician Notes Chart reviewed and plan of care discussed with above provider Patient was not accepted at [facility]. CRP and ESR not elevated Reached out to [facility] for possible transfer; recommended to follow-up tomorrow with MRI department Subjective Patient seen and examined. No apparent distress. Reports his pain is controlled but he is unable to move his hip. Denies any numbness/tingling. Reports a lot of pain in the groin when flexing the hip Review of Systems Review of Systems: All systems reviewed & are unremarkable except as noted in HPI & below Physical Exam Constitutional: WD/WN, vitals as above Eyes: PERRL, conjunctivae normal, anicteric sclerae ENMT: external ear and nose normal, oropharynx normal Neck: trachea midline, no thyromegaly Respiratory: normal respiratory effort, lungs clear to auscultation Cardiovascular: RRR, no murmur, no edema Gastrointestinal (Abdomen): normal bowel sounds, soft, nontender, no hepatosplenomegaly Musculoskeletal: no cyanosis or clubbing, extremities motor strength 5/5 (Right lower extremity weakness and pain with movement) Skin: no rashes, warm and dry Neurologic: PERRL, EOMI, accommodation nl, no face palsy, no dysarthria Psychiatric: A+Ox3, euthymic affect Results & Data Results & Data Vital Signs (Past 12 Hours) Vital Signs Temp Pulse Resp BP Pulse Ox O2 Del Method 03/02/24 07:56 36.6 C 78 16 105/66 94 Room Air 03/02/24 06:08 55 L 18 99 Room Air Diagnostic Findings Laboratory Results WBC 11.57 K/ul (4.8-10.8) H 03/02/24 09:56 RBC 4.63 M/uL (4.70-6.10) L 03/02/24 09:56 Hgb 14.3 g/dl (14.0-18.0) 03/02/24 09:56 Hct 42.7 % (42.0-52.0) 03/02/24 09:56 MCV 92.2 fL (80.0-100.0) 03/02/24 09:56 MCH 30.9 pg (25.0-34.0) 03/02/24 09:56 MCHC 33.5 g/dL (32.0-36.0) 03/02/24 09:56 RDW Std Deviation 41.4 fL (36.4-46.3) 03/02/24 09:56 RDW Coeff of Nery 12.1 % (11.5-14.5) 03/02/24 09:56 Plt Count 210 K/uL (130-400) 03/02/24 09:56 MPV 9.4 fL (9.4-12.4) 03/02/24 09:56 Immature Gran % (Auto) 0.4 % 03/02/24 09:56 Neut % (Auto) 80.9 % 03/02/24 09:56 Lymph % (Auto) 12.0 % 03/02/24 09:56 [place] % (Auto) 6.1 % 03/02/24 09:56 Eos % (Auto) 0.3 % 03/02/24 09:56 Baso % (Auto) 0.3 % 03/02/24 09:56 Neut # (Auto) 9.35 K/uL (1.40-6.50) H 03/02/24 09:56 Lymph # (Auto) 1.39 K/uL (1.20-3.40) 03/02/24 09:56 Trinity # (Auto) 0.71 K/uL (0.11-0.59) H 03/02/24 09:56 Eos # (Auto) 0.03 K/uL (0.00-0.50) 03/02/24 09:56 Baso # (Auto) 0.04 K/uL (0.00-0.20) 03/02/24 09:56 Immature Gran # (Auto) 0.05 K/uL (0.01-0.20) 03/02/24 09:56 ESR 8 mm/hr (0-15) 03/02/24 09:56 PT 11.4 Seconds (9.0-12.0) 02/27/24 13:52 INR 1.1 (0.9-1.1) 02/27/24 13:52 APTT 25 Seconds (21-31) 02/27/24 13:52 PTT Ratio 0.9 02/27/24 13:52 Sodium 139 mmol/L (136-145) 03/01/24 06:45 Potassium 4.4 mmol/L (3.5-5.1) 03/01/24 06:45 Chloride 105 mmol/L (98-107) 03/01/24 06:45 Carbon Dioxide 28 mmol/L (21-32) 03/01/24 06:45 Anion Gap 6 (3-11) 03/01/24 06:45 BUN 18 mg/dl (6-23) 03/01/24 06:45 Creatinine 1.08 mg/dl (0.6-1.4) 03/01/24 06:45 Est Cr Clr Drug Dosing 94.8 ml/min 03/01/24 06:45 eGFR 86.24 03/01/24 06:45 BUN/Creatinine Ratio 16.7 (10-20) 03/01/24 06:45 Glucose 109 mg/dl (70-99(Fasting)) H 03/01/24 06:45 Calcium 9.0 mg/dl (8.6-10.3) 03/01/24 06:45 Total Bilirubin 0.4 mg/dl (0.2-1.0) 03/01/24 06:45 AST 12 U/L (13-39) L 03/01/24 06:45 ALT 9 U/L (7-52) 03/01/24 06:45 Alkaline Phosphatase 57 U/L (34-104) 03/01/24 06:45 Total Protein 6.5 gm/dl (6.0-8.3) 03/01/24 06:45 Albumin 4.1 gm/dl (3.4-5.0) 03/01/24 06:45 Globulin 2.4 gm/dl (2.5-4.0) L 03/01/24 06:45 Albumin/Globulin Ratio 1.7 (0.9-2) 03/01/24 06:45 Nasal Screen MRSA (PCR) Negative (Negative) 02/28/24 03:58 Impressions Hip/Pelvis X-Ray 02/27/24 13:57 XR hip RT 2V w pelvis HISTORY: 43 years-old Male severe R hip pain s/p feeling pop while twisting COMPARISON: None TECHNIQUE: AP view of the pelvis with 2 views of the right hip FINDINGS: Intact right proximal femoral ORIF hardware. Surgical clips project over the right hemipelvis. Minimal osteoarthritis of the hips. No acute fracture, dislocation or osseous erosion. No opaque foreign bodies. IMPRESSION: 1. No acute fracture or dislocation. 2. Intact right proximal femoral hardware. ACT 112: Negative or not required by law. The above report was generated using voice recognition software. It may contain grammatical, syntax or spelling errors. Electronically signed by: Jordy Yung M.D. 02/27/2024 2:[address] 02/27/24 14:33 CT hip RT wo con CLINICAL HISTORY: R hip pain, felt pop when rotating, severe pain TECHNIQUE: Multidetector row helical CT of the right hip was performed without intravenous contrast. Coronal and sagittal reformations were obtained. Automated dose lowering techniques and/or adjustment according to patient size were utilized for this examination. CT DOSE: 419.18 mGy.cm Comparison: None available at the time of this dictation. FINDINGS: The osseous structures are without fracture or dislocation. A nail through the femoral neck is seen. The joint spaces are maintained. No joint effusion is seen. The soft tissues are unremarkable. IMPRESSION: No evidence of acute fracture or dislocation. ACT 112: Negative or not required by law. Electronically signed by: Ian Romero M.D. 02/27/2024 3:39 PM Lumbar Spine MRI 02/27/24 18:06 Exam(s): MRI L SPINE Without Contrast EXAM: MR Lumbar Spine Without Intravenous Contrast CLINICAL HISTORY: Reason for exam: low back pain, urinary retention. TECHNIQUE: Magnetic resonance images of the lumbar spine without intravenous contrast in multiple planes. COMPARISON: No relevant prior studies available. FINDINGS: Vertebrae: There are 5 lumbar type vertebral bodies with a mild generalized tripped and left and normal lumbar lordosis. There is normal vertebral body height and alignment. The bone marrow signal is normal. No acute fracture. There is mild bilateral sacroiliac joint arthropathy. Spinal cord: The conus is normal size, shape and signal characteristics, terminating at T12-L1. Soft tissues: The iliopsoas, paraspinous intraspinous muscles normal. The aorta and IVC flow voids are intact. There is a the kidneys are unremarkable. DISCS/SPINAL CANAL/NEURAL FORAMINA: L1-L2: The intervertebral disc is normal. There is minimal to mild facet joint arthropathy with mild synovitis. L2-L3: There is mild disc degeneration with annular disc bulge causing a mild subarticular recess stenosis with disc extending to the neural foramina without evidence of impingement or significant stenosis. There is minimal facet arthropathy with mild synovitis. L3-L4: There is mild disc degeneration with annular disc bulge causing mild subarticular recess stenosis with disc and osteophyte extending to the neural foramina causing a mild left stenosis without evidence of neural impingement. There is mild facet arthropathy with mild synovitis. L4-L5: There is mild disc degeneration with annular disc bulge causing a mild subarticular recess stenosis with superimposed congenitally short pedicles causing a moderate spinal canal stenosis with thecal sac at measured 0.78 cm. His disc and osteophyte extending to the neural foramina causing a moderate right and mild left stenosis with mild impingement of the right L4 nerve root ganglion. There is mild facet joint arthropathy with mild synovitis. L5-S1: The intervertebral disc is normal. There is mild facet arthropathy with mild synovitis. IMPRESSION: 1. Mild disc degeneration at L2-3, L3-4 and L4-5 with annular disc bulging causing a mild subarticular recess stenosis without evidence of neural impingement. 2. There is a moderate spinal canal stenosis at L4-5. 3. There is a moderate right and mild left L4-5 neural foraminal stenosis with mild impingement of the right L4 nerve root ganglion. 4. Minimal to mild facet arthropathy with mild synovitis. 5. Mild bilateral sacral joint arthropathy. 6. No evidence of fracture, infection, tumor or arachnoiditis. Electronically signed by: Ofelia Downey MD 02/27/24 22:30 PM
[2024-03-02 10:31] LABS: Alanine Aminotransferase 9 U/L (7-52); Albumin Globulin Ratio 1.6 (0.9-2); Albumin Level 4.1 gm/dl (3.4-5.0); Alkaline Phosphatase 54 U/L (34-104); Anion Gap 4 (3-11); Aspartate Aminotransferase 12 U/L (13-39); Bilirubin,Total 0.3 mg/dl (0.2-1.0); Blood Urea Nitrogen 13 mg/dl (6-23); C Reactive Protein < 0.50 mg/dl (0-0.5); Calcium 9.2 mg/dl (8.6-10.3); Carbon Dioxide 34 mmol/L (21-32); Chloride 104 mmol/L (98-107); Creatinine Clr Calc Pharmacy 102.4 ml/min; Globulin 2.5 gm/dl (2.5-4.0); Glucose 133 mg/dl (70-99(Fasting)); Potassium 4.6 mmol/L (3.5-5.1); Sodium 142 mmol/L (136-145); Total Protein 6.6 gm/dl (6.0-8.3)
--- NOTE | 2024-03-02 16:26 | Orthopedic Progress Note ---
Date of Service March 02, 2024 Assessment & Plan (1) Right hip pain: Plan: IMPRESSION: R hip pain, h/o previous right hip arthroscopy, labral repair, and ORIF, likely secondarily to muscle strain vs re-current labral injury although CT scan did not show an effusion vs lumbar etiology, minimally improved. ESR & CRP are normal PT/OT Ice with easy wrap Pain control with p.o. or IV medication Muscle relaxers for spasm and pain Can be weightbearing as tolerated with crutches or walker assistance To consider MRI arthrogram of the right hip, unable to obtain in hospital or to consider musculoskeletal ultrasound right hip, limited ability to preform in hospital Prednisone taper Consult ortho spine, no surgical intervention recommended, recommended cortisone injection Recommend and agree with transfer to higher level of care, [place], tomorrow. Continue care per primary service. Admission and Anticipated Discharge Date Admission Date: February 27, 2024 Subjective Continued right hip pain, without the spasms, only minor twinges if he moves. Continued decrease sensation below knee. Physical Exam Physical Exam: RLE: 2 + DP pulse, sensation to light touch slightly diminished distally. Improved toe and ankle flexion/extension + tenderness to palpation over the hip adductor, hip flexor muscles greater than hamstrings; the majority of his pain is in his groin/adductor area. Patient is unable to perform right straight leg raise. Decreased sensation over lateral, medial, and anterior aspect of the thigh. There is no edema, erythema or ecchymosis. Previous portals and lateral incision are well healed. + log roll hip. Results & Data Vital Signs (Past 12 Hours) Vital Signs Temp Pulse Resp BP Pulse Ox O2 Del Method 03/02/24 07:56 36.6 C 78 16 105/66 94 Room Air 03/02/24 06:08 55 L 18 99 Room Air Laboratory Results Laboratory Results WBC 11.57 K/ul (4.8-10.8) H 03/02/24 09:56 RBC 4.63 M/uL (4.70-6.10) L 03/02/24 09:56 Hgb 14.3 g/dl (14.0-18.0) 03/02/24 09:56 Hct 42.7 % (42.0-52.0) 03/02/24 09:56 MCV 92.2 fL (80.0-100.0) 03/02/24 09:56 MCH 30.9 pg (25.0-34.0) 03/02/24 09:56 MCHC 33.5 g/dL (32.0-36.0) 03/02/24 09:56 RDW Std Deviation 41.4 fL (36.4-46.3) 03/02/24 09:56 RDW Coeff of Nery 12.1 % (11.5-14.5) 03/02/24 09:56 Plt Count 210 K/uL (130-400) 03/02/24 09:56 MPV 9.4 fL (9.4-12.4) 03/02/24 09:56 Immature Gran % (Auto) 0.4 % 03/02/24 09:56 Neut % (Auto) 80.9 % 03/02/24 09:56 Lymph % (Auto) 12.0 % 03/02/24 09:56 [place] % (Auto) 6.1 % 03/02/24 09:56 Eos % (Auto) 0.3 % 03/02/24 09:56 Baso % (Auto) 0.3 % 03/02/24 09:56 Neut # (Auto) 9.35 K/uL (1.40-6.50) H 03/02/24 09:56 Lymph # (Auto) 1.39 K/uL (1.20-3.40) 03/02/24 09:56 [place]ade # (Auto) 0.71 K/uL (0.11-0.59) H 03/02/24 09:56 Eos # (Auto) 0.03 K/uL (0.00-0.50) 03/02/24 09:56 Baso # (Auto) 0.04 K/uL (0.00-0.20) 03/02/24 09:56 Immature Gran # (Auto) 0.05 K/uL (0.01-0.20) 03/02/24 09:56 ESR 8 mm/hr (0-15) 03/02/24 09:56 PT 11.4 Seconds (9.0-12.0) 02/27/24 13:52 INR 1.1 (0.9-1.1) 02/27/24 13:52 APTT 25 Seconds (21-31) 02/27/24 13:52 PTT Ratio 0.9 02/27/24 13:52 Sodium 142 mmol/L (136-145) 03/02/24 09:56 Potassium 4.6 mmol/L (3.5-5.1) 03/02/24 09:56 Chloride 104 mmol/L (98-107) 03/02/24 09:56 Carbon Dioxide 34 mmol/L (21-32) H 03/02/24 09:56 Anion Gap 4 (3-11) 03/02/24 09:56 BUN 13 mg/dl (6-23) 03/02/24 09:56 Creatinine 1.00 mg/dl (0.6-1.4) 03/02/24 09:56 Est Cr Clr Drug Dosing 102.4 ml/min 03/02/24 09:56 eGFR 94.59 03/02/24 09:56 BUN/Creatinine Ratio 13.0 (10-20) 03/02/24 09:56 Glucose 133 mg/dl (70-99(Fasting)) H 03/02/24 09:56 Calcium 9.2 mg/dl (8.6-10.3) 03/02/24 09:56 Total Bilirubin 0.3 mg/dl (0.2-1.0) 03/02/24 09:56 AST 12 U/L (13-39) L 03/02/24 09:56 ALT 9 U/L (7-52) 03/02/24 09:56 Alkaline Phosphatase 54 U/L (34-104) 03/02/24 09:56 C-Reactive Protein < 0.50 mg/dl (0-0.5) 03/02/24 09:56 Total Protein 6.6 gm/dl (6.0-8.3) 03/02/24 09:56 Albumin 4.1 gm/dl (3.4-5.0) 03/02/24 09:56 Globulin 2.5 gm/dl (2.5-4.0) 03/02/24 09:56 Albumin/Globulin Ratio 1.6 (0.9-2) 03/02/24 09:56 Nasal Screen MRSA (PCR) Negative (Negative) 02/28/24 03:58 Impressions Hip/Pelvis X-Ray 02/27/24 13:57 XR hip RT 2V w pelvis HISTORY: 43 years-old Male severe R hip pain s/p feeling pop while twisting COMPARISON: None TECHNIQUE: AP view of the pelvis with 2 views of the right hip FINDINGS: Intact right proximal femoral ORIF hardware. Surgical clips project over the right hemipelvis. Minimal osteoarthritis of the hips. No acute fracture, dislocation or osseous erosion. No opaque foreign bodies. IMPRESSION: 1. No acute fracture or dislocation. 2. Intact right proximal femoral hardware. ACT 112: Negative or not required by law. The above report was generated using voice recognition software. It may contain grammatical, syntax or spelling errors. Electronically signed by: Jordy Yung M.D. 02/27/2024 2:[address] 02/27/24 14:33 CT hip RT wo con CLINICAL HISTORY: R hip pain, felt pop when rotating, severe pain TECHNIQUE: Multidetector row helical CT of the right hip was performed without intravenous contrast. Coronal and sagittal reformations were obtained. Automated dose lowering techniques and/or adjustment according to patient size were utilized for this examination. CT DOSE: 419.18 mGy.cm Comparison: None available at the time of this dictation. FINDINGS: The osseous structures are without fracture or dislocation. A nail through the femoral neck is seen. The joint spaces are maintained. No joint effusion is seen. The soft tissues are unremarkable. IMPRESSION: No evidence of acute fracture or dislocation. ACT 112: Negative or not required by law. Electronically signed by: Ian Romero M.D. 02/27/2024 3:39 PM Lumbar Spine MRI 02/27/24 18:06 Exam(s): MRI L SPINE Without Contrast EXAM: MR Lumbar Spine Without Intravenous Contrast CLINICAL HISTORY: Reason for exam: low back pain, urinary retention. TECHNIQUE: Magnetic resonance images of the lumbar spine without intravenous contrast in multiple planes. COMPARISON: No relevant prior studies available. FINDINGS: Vertebrae: There are 5 lumbar type vertebral bodies with a mild generalized tripped and left and normal lumbar lordosis. There is normal vertebral body height and alignment. The bone marrow signal is normal. No acute fracture. There is mild bilateral sacroiliac joint arthropathy. Spinal cord: The conus is normal size, shape and signal characteristics, terminating at T12-L1. Soft tissues: The iliopsoas, paraspinous intraspinous muscles normal. The aorta and IVC flow voids are intact. There is a the kidneys are unremarkable. DISCS/SPINAL CANAL/NEURAL FORAMINA: L1-L2: The intervertebral disc is normal. There is minimal to mild facet joint arthropathy with mild synovitis. L2-L3: There is mild disc degeneration with annular disc bulge causing a mild subarticular recess stenosis with disc extending to the neural foramina without evidence of impingement or significant stenosis. There is minimal facet arthropathy with mild synovitis. L3-L4: There is mild disc degeneration with annular disc bulge causing mild subarticular recess stenosis with disc and osteophyte extending to the neural foramina causing a mild left stenosis without evidence of neural impingement. There is mild facet arthropathy with mild synovitis. L4-L5: There is mild disc degeneration with annular disc bulge causing a mild subarticular recess stenosis with superimposed congenitally short pedicles causing a moderate spinal canal stenosis with thecal sac at measured 0.78 cm. His disc and osteophyte extending to the neural foramina causing a moderate right and mild left stenosis with mild impingement of the right L4 nerve root ganglion. There is mild facet joint arthropathy with mild synovitis. L5-S1: The intervertebral disc is normal. There is mild facet arthropathy with mild synovitis. IMPRESSION: 1. Mild disc degeneration at L2-3, L3-4 and L4-5 with annular disc bulging causing a mild subarticular recess stenosis without evidence of neural impingement. 2. There is a moderate spinal canal stenosis at L4-5. 3. There is a moderate right and mild left L4-5 neural foraminal stenosis with mild impingement of the right L4 nerve root ganglion. 4. Minimal to mild facet arthropathy with mild synovitis. 5. Mild bilateral sacral joint arthropathy. 6. No evidence of fracture, infection, tumor or arachnoiditis. Electronically signed by: Ofelia Downey MD 02/27/24 22:30 PM
[2024-03-02] MEDS: MoRPHine SULFATE 2 MG/ML CARP IV PRN (18:49)
[2024-03-03] MEDS: methylPREDNISolone 4 MG TAB PO SCH (06:04)
[2024-03-03 08:01] VITALS: RESP 16
[2024-03-03 08:31] LABS: Basophils # (auto) 0.05 K/uL (0.00-0.20); Basophils % (auto) 0.5 %; Eosinophils # (auto) 0.06 K/uL (0.00-0.50); Eosinophils % (auto) 0.7 %; Hematocrit (blood only) 45.6 % (42.0-52.0); Immature Granulocytes # (auto) 0.03 K/uL (0.01-0.20); Immature Granulocytes % (auto) 0.3 %; Lymphocytes # (auto) 1.82 K/uL (1.20-3.40); Lymphocytes % (auto) 19.7 %; Mean Corpuscular Hemoglobin 30.5 pg (25.0-34.0); Mean Corpuscular Hgb Conc 32.9 g/dL (32.0-36.0); Mean Corpuscular Volume 92.9 fL (80.0-100.0); Mean Platelet Volume 9.5 fL (9.4-12.4); Monocytes # (auto) 0.75 K/uL (0.11-0.59); Monocytes % (auto) 8.1 %; Neutrophils # (auto) 6.51 K/uL (1.40-6.50); Neutrophils % (auto) 70.7 %; Platelet Count 226 K/uL (130-400); RDW Coefficient of Variation 12.2 % (11.5-14.5); RDW Standard Deviation 41.4 fL (36.4-46.3); Red Blood Count 4.91 M/uL (4.70-6.10); White Blood Count 9.22 K/ul (4.8-10.8)
[2024-03-03 08:44] LABS: Albumin Globulin Ratio 1.6 (0.9-2); Albumin Level 4.1 gm/dl (3.4-5.0); Bilirubin,Total 0.4 mg/dl (0.2-1.0); Calcium 9.3 mg/dl (8.6-10.3); Creatinine Clr Calc Pharmacy 102.4 ml/min; Globulin 2.6 gm/dl (2.5-4.0); Potassium 5.1 mmol/L (3.5-5.1); Total Protein 6.7 gm/dl (6.0-8.3)
--- NOTE | 2024-03-03 10:35 | Hospitalist Progress Note ---
Date of Service March 03, 2024 Assessment & Plan (1) Urinary retention: (2) Inability to ambulate due to hip: (3) Right hip pain: (4) Bulging lumbar disc: Plan This is a 43 yr old M who has a significant PMH of seasonal allergies, chronic low back pain, chronic R hip pain 2/2 fall requiring surgery intervention, hx of medical marijuana use who presents to ED 2/2 R hip pain. Plan and assessment: R hip pain: Ambulatory dysfunction: Muscle strain versus labral injury: In setting of previous right hip arthroscopy, labral repair, and ORIF, likely 2/2 to muscle strain vs re-current labral injury, per ortho Ortho spine consulted for further eval of spinal canal stenosis L4-5, foraminal stenosis as a source of hip/groin pain Discussed with ortho- unable to obtain specific MRI R hip and US here, attempted transfer to [facility] and [facility] w/o success as they do not feel this is urgent need and can be done as outpatient Continue gabapentin 600mg TID, Flexeril 10mg TID today, scheduled Tylenol, added lidocaine patch, ice, Medrol dosepak added on 02/27 Can be weightbearing as tolerated with crutches or walker assistance Ortho's were noted to be positive on 03/01, this is likely secondary to pain and pain medications, CTM add PRN oxy for mod pain and continue PRN morphine for severe pain consult pain management to assist with management of pain - ? Inj Urinary Retention Previous hx of urinary hesitancy Continue flomax, maintain paulino cath for now per urology attempt TOV today pt c/o of red lump penis head, will place bactroban bid 03/01: Discussed with orthopedic surgeon Dr. Sinha from [facility]. Refusing transfer at this time. Would recommend ESR/CRP and aspiration of right hip to rule out infection prior to excepting the patient. Discussed with Dr. Platt. IR unavailable until Saturday 03/03. Will plan for aspiration then. Dr. Platt are still recommending transfer ultimately due to the patient's history of prior surgery. 03/02: Transfer center reached out to [facility] for possible transfer. Recommended calling back on 03/03 to coordinate MRI scheduling to ensure the patient can get the MRI arthrogram. No accepting at this time 03/03: Discussed with [facility] Dr. Nohemy Molina who declined to accept pt at this time as they couldn't see pt for MRI arthrogram for at least one week, also do not feel it is an urgent need at this time and can be worked up as outpatient * Attempting to contact Dr. Kurtis Coello who did the patients initial surgery. Will also consider [facility] if unable to get assistance [facility] * Spoke with Dr. Coello who is very familiar with Mr. Whiting. He is willing to see him in clinic. He recommends getting his pain under control, WBAT and he will see him at his earliest convenience and order approp imaging Full code DVT prophylaxis: Gunnarx I spent a total of 75 minutes minutes reviewing notes, outpatient records, labs, medication, coordinating, documenting and providing care for this patient excluding time spent in the performance of separately billed services. Admission and Anticipated Discharge Date Admission Date: February 27, 2024 Supervising Physician Co-Signing Physician Notes Chart reviewed. Discussed with above provider. Discussion was done with his prior surgeon regarding the hip pain. He recommended outpatient follow-up and workup. Plan of void today; bladder scan Q8 I have reviewed the advanced practitioner's documentation, and I agree with, and take responsibility for the plan of care Subjective NAEO. 2 guards at bedside. Continues to have significant pain to R hip. He tried ambulating with PT out to the [place] and got immense pain and dizziness and had to sit down. He was able to ambulate to the bathroom yesterday but has significant pain. He feels oral steroid may be helping some. He continues to have numbness and tingling to RLE. He feels pressure on his R hip and R lower leg. Minimal BM yesterday. Review of Systems Review of Systems: All systems reviewed & are unremarkable except as noted in HPI & below Physical Exam Physical Exam: Gen: WD/WN, M, NAD, A&O x3 HEENT: Normocephalic, atraumatic, conjunctivae moist, sclerae anicteric, mucous membranes moist. Lung: Clear to Auscultation bilaterally, no wheezes/rales/rhonchi Heart: Regular rate, regular rhythm, no murmurs, rubs, or gallops Abdomen: Soft, NT, ND +BS x 4 Extremities: No edema Skin: Warm, no rash, negative turgor. Results & Data Results & Data Vital Signs (Past 12 Hours) Vital Signs Temp Pulse Resp BP Pulse Ox O2 Del Method 03/03/24 07:22 36.5 C 66 16 103/64 100 Room Air 03/02/24 22:57 62 18 98 Room Air
[2024-03-03] MEDS ORDERED: MoRPHine SULFATE 2 MG/ML CARP IV PRN (10:43)
[2024-03-03] MEDS: GABAPENTIN 300 MG CAP PO SCH (14:03)
[2024-03-03] MEDS: oxyCODONE HCL IR 5 MG TAB (IMMEDIATE RELEASE) PO PRN (18:10)
[2024-03-03 19:25] VITALS: TEMP 97.9
[2024-03-03] MEDS: MUPIROCIN 2% OINT 22 GM TUBE EXT SCH (21:11)
[2024-03-04] MEDS: methylPREDNISolone 4 MG TAB PO SCH (05:28)
[2024-03-04 08:17] VITALS: BP 103/63; PULSE 66; O2SAT 99
--- NOTE | 2024-03-04 08:53 | Pain Management Consultation ---
Date of Consultation March 04, 2024 Assessment & Plan (1) Inability to ambulate due to hip: (2) Right hip pain: (3) Chronic pain: Chronic pain type: chronic pain syndrome Qualified Code(s): G89.4 - Chronic pain syndrome (4) Bulging lumbar disc: Plan He does have findings of moderate spinal stenosis at L4-L5 and does describe a numbness and tingling down the entire right leg. He does not describe this pain running in a dermatomal pattern. Significantly worsened with weightbearing and primarily located along the right groin. This pain that she is experiencing appears more so related to right hip pain rather than back etiology. He does not have any specific tenderness along the greater trochanteric bursa, genitofemoral nerve, or ilioinguinal nerve. Nothing to offer interventionally at this time. Continue medication regimen and follow-up with orthopedics. Thank you for the consultation. Please contact with any questions or concerns. History of Present Illness Reason for Consultation: Groin pain Attending Physician: Tank Yo MD History of Present Illness This is a 43-year-old prisoner with a significant history of a previous right hip arthroscopy, labral tear, and ORIF. He experienced a sudden pain along the right groin when trying to get out of bed and then felt a pop. His cellmate did help him as he was unable to weight-bear. Previous hip surgery was about 1 year ago when he sustained a fall and tore his labrum. He feels like this pain does feel similar. He describes a sharp stabbing pain along the right groin with any movement or with weightbearing. There is a constant numbness and tingling down the entire right leg. He feels like there is a bunched up tightness sensation along the calf and knee. He does have a history of low back pain which is unchanged. He has tried epidural steroid injections without any significant improvement. He has been evaluated by orthopedics and by x-ray and CT scan there are no significant findings. There is mention of obtaining an MRI arthrogram and possible transfer to a different facility. Currently receiving cyclobenzaprine 10 mg 3 times daily, gabapentin 900 mg 3 times daily, meloxicam 15 mg daily, Medrol Dosepak, oxycodone 5 mg every 4 hours if needed, and IV morphine 2 mg every 6 hours as needed. Case discussed with Dr. Dayanna Lara Allergies Allergy/AdvReac Type Severity Reaction Status Date / Time No Known Allergies Allergy Verified 07/26/23 05:57 Home Medications Medication Instructions Recorded Confirmed Type cetirizine 10 mg capsule 10 mg PO QAM 07/11/23 02/27/24 History meloxicam 15 mg tablet 15 mg PO QAM 07/11/23 02/27/24 History omeprazole 20 mg capsule,delayed 20 mg PO QAM 07/11/23 02/27/24 History release albuterol sulfate 90 mcg/actuation 1 inh inhalation QID PRN 08/09/23 02/27/24 History aerosol inhaler sob/wheezing tamsulosin 0.4 mg capsule 0.4 mg PO DAILY #90 caps 09/03/23 02/27/24 Rx Patient History Medical History Left varicocele GERD (gastroesophageal reflux disease) Allergic rhinitis Chronic pain Bulging lumbar disc DDD (degenerative disc disease), lumbar Surgical History Hx of left inguinal hernia repair (~05/17/23) History of repair of right hip joint Hx of appendectomy Hx of shoulder surgery lt, labrum, AC and Bursa Social History Smoking Status: Never smoker Tobacco Type: Smokeless Tobacco (Dip or Chew) Second Hand Exposure: No; Do You Dip or Chew Tobacco: Yes; Hx Alcohol Use: No Hx Substance Use: No Preferred Language: Amharic Communication Ability: Effective Group Director Required: No Beliefs That Will Affect Care: None Current Living Situation: Other Current Living Situation Comment: [facility] Feels Safe at Home: Yes Assistive Devices: None Physical Exam Physical Exam: GENERAL: This is a 43-year-old prisoner that is accompanied by 2 guards. HEAD/FACE: Normocephalic and atraumatic. EYES: No drainage or conjunctival injection. ENT: Nose without bleeding or discharge. Oral mucosa moist. NECK: Full ROM without apparent pain. No swelling or masses noted. RESPIRATORY: Patient with unlabored breathing. No signs of respiratory distress. CHEST/AXILLA: Chest movement symmetrical. No deformities noted. CARDIOVASCULAR: Patients heart rate is regular, with pulse rate as documented. No edema noted. ABDOMEN/GI: No distension BACK: Moves without difficulty SKIN: [place], warm and dry. No rash noted. MS/EXTREMITY: There is diffuse tenderness along the right groin. Increased pain with internal and external hip range of motion. Sensation and strength is intact along the right leg but it is painful to flex the right hip. Positive logroll. No focal ilioinguinal or genitofemoral nerve tenderness. Tenderness along the right greater trochanteric bursa. NEURO: Alert and appears oriented. Speech is fluent. Cranial Nerves are grossly intact. PSYCH: Alert, pleasant, affect is calm Results (Pain Clinic) Diagnostic Review MRI Findings: Exam(s): MRI L SPINE Without Contrast EXAM: MR Lumbar Spine Without Intravenous Contrast CLINICAL HISTORY: Reason for exam: low back pain, urinary retention. TECHNIQUE: Magnetic resonance images of the lumbar spine without intravenous contrast in multiple planes. COMPARISON: No relevant prior studies available. FINDINGS: Vertebrae: There are 5 lumbar type vertebral bodies with a mild generalized tripped and left and normal lumbar lordosis. There is normal vertebral body height and alignment. The bone marrow signal is normal. No acute fracture. There is mild bilateral sacroiliac joint arthropathy. Spinal cord: The conus is normal size, shape and signal characteristics, terminating at T12-L1. Soft tissues: The iliopsoas, paraspinous intraspinous muscles normal. The aorta and IVC flow voids are intact. There is a the kidneys are unremarkable. DISCS/SPINAL CANAL/NEURAL FORAMINA: L1-L2: The intervertebral disc is normal. There is minimal to mild facet joint arthropathy with mild synovitis. L2-L3: There is mild disc degeneration with annular disc bulge causing a mild subarticular recess stenosis with disc extending to the neural foramina without evidence of impingement or significant stenosis. There is minimal facet arthropathy with mild synovitis. L3-L4: There is mild disc degeneration with annular disc bulge causing mild subarticular recess stenosis with disc and osteophyte extending to the neural foramina causing a mild left stenosis without evidence of neural impingement. There is mild facet arthropathy with mild synovitis. L4-L5: There is mild disc degeneration with annular disc bulge causing a mild subarticular recess stenosis with superimposed congenitally short pedicles causing a moderate spinal canal stenosis with thecal sac at measured 0.78 cm. His disc and osteophyte extending to the neural foramina causing a moderate right and mild left stenosis with mild impingement of the right L4 nerve root ganglion. There is mild facet joint arthropathy with mild synovitis. L5-S1: The intervertebral disc is normal. There is mild facet arthropathy with mild synovitis. IMPRESSION: 1. Mild disc degeneration at L2-3, L3-4 and L4-5 with annular disc bulging causing a mild subarticular recess stenosis without evidence of neural impingement. 2. There is a moderate spinal canal stenosis at L4-5. 3. There is a moderate right and mild left L4-5 neural foraminal stenosis with mild impingement of the right L4 nerve root ganglion. 4. Minimal to mild facet arthropathy with mild synovitis. 5. Mild bilateral sacral joint arthropathy. 6. No evidence of fracture, infection, tumor or arachnoiditis. Electronically signed by: Ofelia Downey MD 02/27/24 22:[address] Findings: CT hip RT wo con CLINICAL HISTORY: R hip pain, felt pop when rotating, severe pain TECHNIQUE: Multidetector row helical CT of the right hip was performed without intravenous contrast. Coronal and sagittal reformations were obtained. Automated dose lowering techniques and/or adjustment according to patient size were utilized for this examination. CT DOSE: 419.18 mGy.cm Comparison: None available at the time of this dictation. FINDINGS: The osseous structures are without fracture or dislocation. A nail through the femoral neck is seen. The joint spaces are maintained. No joint effusion is seen. The soft tissues are unremarkable. IMPRESSION: No evidence of acute fracture or dislocation. ACT 112: Negative or not required by law. Electronically signed by: Ian Romero M.D. 02/27/2024 3:39 PM
--- NOTE | 2024-03-04 10:43 | Discharge Summary ---
Discharge Summary Date of Service March 04, 2024 Principal Dx & Hospital Course #1 = Principal Diagnosis (1) Urinary retention: (2) Inability to ambulate due to hip: (3) Right hip pain: (4) Bulging lumbar disc: Plan This is a 43 yr old M who has a significant PMH of seasonal allergies, chronic low back pain, chronic R hip pain 2/2 fall requiring surgery intervention, hx of medical marijuana use who presents to ED 2/2 R hip pain. Plan and assessment: R hip pain: Ambulatory dysfunction: Muscle strain versus labral injury: In setting of previous right hip arthroscopy, labral repair, and ORIF, likely 2/2 to muscle strain vs re-current labral injury, per ortho Ortho spine consulted for further eval of spinal canal stenosis L4-5, foraminal stenosis as a source of hip/groin pain Discussed with ortho- unable to obtain specific MRI R hip and US here, attempted transfer [place] [facility] [place] [facility] [place]o success as they do not feel this is urgent need and can be done as outpatient Continue gabapentin 600mg TID, Flexeril 10mg TID today, scheduled Tylenol Can be weightbearing as tolerated with crutches or walker assistance consulted pain management to assist with management of pain - it was felt that pain was all in setting of R hip pathology and not related to lumbar spine, no further recommendations at this time Urinary Retention Previous hx of urinary hesitancy Continue flomax, TOV successful continue bactroban to tip of penis x 1 week, started 03/03 03/01: Discussed with orthopedic surgeon Dr. Sinha from [facility]. Refusing transfer at this time. Would recommend ESR/CRP and aspiration of right hip to rule out infection prior to excepting the patient. Discussed with Dr. Platt. IR unavailable until Saturday 03/03. Will plan for aspiration then. Dr. Platt are still recommending transfer ultimately due to the patient's history of prior surgery. 03/02: Transfer center reached out to [facility] for possible transfer. Recommended calling back on 03/03 to coordinate MRI scheduling to ensure the patient can get the MRI arthrogram. No accepting at this time 03/03: Discussed with [facility] orthopedics Dr. Nohemy Molina who declined to accept pt at this time as they couldn't see pt for MRI arthrogram for at least one week, also do not feel it is an urgent need at this time and can be worked up as outpatient * Attempting to contact Dr. Kurtis Coello who did the patients initial surgery. * Spoke with Dr. Coello who is very familiar with Mr. Whiting. He is willing to see him in clinic. He recommends getting his pain under control, WBAT and he will see him at his earliest convenience and order approp imaging * I have scheduled an appointment for 03/05/24 at [facility] with Dr. Coello. I spoke to [facility] who states all appointments get approved through a process. I educated her that is is very important for Mr. Whiting to attend this appointment so it can expedite his diagnosis and plan of care. I told her to please speak with who she needs to in order to attempt to get this approved. I provided my phone number so I could be reached by Medical to attest this urgent need. Notes For Next Care Provider Please ensure patient follows up with Dr. Coello of [facility]. This is imperative to diagnose his R hip pain and possible Labral Injury. He needs an MRI arthogram of R hip which Dr. Coello can schedule. Medication Changes From Visit Tylenol 1,000mg by mouth three times daily. Ibuprofen 600mg every 8 hours as needed for mild pain. Gabapentin 600mg by mouth three times daily. Flexeril 10mg by mouth three times daily. Docusate sodium 100mg by mouth twice daily. Miralax 17g by mouth once daily. Mupirocin, apply to tip of penis twice daily for 1 week. Admission HPI Per Admitting Provider This is a 43 yr old M who has a significant PMH of seasonal allergies, chronic low back pain, chronic R hip pain 2/2 fall requiring surgery intervention, hx of medical marijuana use who presents to ED 2/2 R hip pain. He is a prisoner at [facility]. Pt states today he was trying to get up from his bed when he got intense R hip pain that caused him to grab the sink and sit back down. When he tried to get up again he felt a pop in his right him and he went down to the ground. His cellmate helped him up but due to the intense pain he was brought to the ED. He states approx 1 year ago he had R hip surgery after a sustained fall where he also tore his labrum. He states this feels similar. "It feels like something is being pushed out or all balled up in there." He reports chronic stabbing pain to the R hip with numbness/tingling to the RLE. This was all present before today. He also reports chronic urinary hesitancy and urgency. He also reports inability to urinate at times. He denies any stool incontinence or bowel/bladder anesthesia. He denies any recent f/c/s, chest pain, sob, n/v/d. His appetite has been normal. Thus far workup in ED has been unremarkable. He underwent a right hip x-ray which revealed intact right proximal femoral ORIF hardware. CT scan concurred with no evidence of fracture or dislocation. CBC and CMP was drawn unremarkable except for a mildly decreased hemoglobin at 13.9. Currently his pain is significant 10 out of 10 and he has had an inability to actively move his right lower extremity. Currently unable to walk secondary to severe pain. A Abrams catheter was placed in the ED due to urinary retention. Admission Exam Per Admitting Provider Constitutional: WD/WN, vitals as above, in pain, sitting up in bed, pleasant, conversing easily Head: Normocephalic, Atraumatic Eyes: PERRL, conjunctivae normal, anicteric sclerae ENMT: external ear and nose normal, oropharynx normal Neck: trachea midline, no thyromegaly normal visual inspection Respiratory: normal respiratory effort, lungs clear to auscultation, no wheeze, rales, rhonchi. Normal insp/exp effort, no accessory muscle use Cardiovascular: RRR, no murmur, no edema Vessels: no JVD or carotid bruit Chest: normal inspection of chest Abdomen: normal bowel sounds, soft, nontender, no hepatosplenomegaly Musculoskeletal: no cyanosis or clubbing, inability to active/passively pts RLE,he is NVI distally, good DP, PT pulse b/l Skin: no rashes, warm and dry normal turgor Neurologic: PERRL, EOMI, accommodation nl, no face palsy, no dysarthria CN's II-XI intact bilaterally and moves all extremities Psychiatric: A+Ox3, euthymic affect Lymphatic: no cervical or axillary lymphadenopathy : deferred Discharge Exam Gen: WD/WN, M, NAD, A&O x3 HEENT: Normocephalic, atraumatic, conjunctivae moist, sclerae anicteric, mucous membranes moist. Lung: Clear to Auscultation bilaterally, no wheezes/rales/rhonchi Heart: Regular rate, regular rhythm, no murmurs, rubs, or gallops Abdomen: Soft, NT, ND +BS x 4 Extremities: No edema Skin: Warm, no rash, negative turgor. Updated Medication List Medication Instructions Recorded Confirmed Type cetirizine 10 mg capsule 10 mg PO QAM 07/11/23 02/27/24 History meloxicam 15 mg tablet 15 mg PO QAM 07/11/23 02/27/24 History omeprazole 20 mg capsule,delayed 20 mg PO QAM 07/11/23 02/27/24 History release albuterol sulfate 90 mcg/actuation 1 inh inhalation QID PRN 08/09/23 02/27/24 History aerosol inhaler sob/wheezing tamsulosin 0.4 mg capsule 0.4 mg PO DAILY #90 caps 09/03/23 02/27/24 Rx acetaminophen 500 mg tablet 1,000 mg (2 x 500 mg) PO Q8H #90 03/04/24 Rx (Tylenol Extra Strength) tabs cyclobenzaprine 10 mg tablet 10 mg PO TID #90 tabs 03/04/24 Rx docusate sodium 100 mg capsule 100 mg PO BID #60 caps 03/04/24 Rx gabapentin 300 mg capsule 600 mg (2 x 300 mg) PO TID 30 days 03/04/24 Rx #180 caps ibuprofen 600 mg tablet 600 mg PO Q8H PRN pain (scale 03/04/24 Rx score 1-3) #90 tabs mupirocin 2 % topical ointment 1 applic EXT BID #22 grams 03/04/24 Rx oxycodone 5 mg tablet 5 mg PO Q4H PRN severe pain (scale 03/04/24 Rx score 7-10) #12 tabs polyethylene glycol 3350 17 gram 17 g PO DAILY #30 ea 03/04/24 Rx oral powder packet (Miralax) Hospital Stay Data Consultations 02/27/24 17:44 Consult Orthopedic Surgery Routine 02/27/24 17:54 ED Decision to Admit Stat 02/27/24 18:07 Consult Urology Routine 02/28/24 13:08 Consult Orthopedic Spine Surgery Routine 03/03/24 10:34 Consult Pain Management Routine Diagnostic Imagining Performed Hip/Pelvis X-Ray 02/27/24 13:57 XR hip RT 2V w pelvis HISTORY: 43 years-old Male severe R hip pain s/p feeling pop while twisting COMPARISON: None TECHNIQUE: AP view of the pelvis with 2 views of the right hip FINDINGS: Intact right proximal femoral ORIF hardware. Surgical clips project over the right hemipelvis. Minimal osteoarthritis of the hips. No acute fracture, dislocation or osseous erosion. No opaque foreign bodies. IMPRESSION: 1. No acute fracture or dislocation. 2. Intact right proximal femoral hardware. ACT 112: Negative or not required by law. The above report was generated using voice recognition software. It may contain grammatical, syntax or spelling errors. Electronically signed by: Jordy Yung M.D. 02/27/2024 2:[address] 02/27/24 14:33 CT hip RT wo con CLINICAL HISTORY: R hip pain, felt pop when rotating, severe pain TECHNIQUE: Multidetector row helical CT of the right hip was performed without intravenous contrast. Coronal and sagittal reformations were obtained. Automated dose lowering techniques and/or adjustment according to patient size were utilized for this examination. CT DOSE: 419.18 mGy.cm Comparison: None available at the time of this dictation. FINDINGS: The osseous structures are without fracture or dislocation. A nail through the femoral neck is seen. The joint spaces are maintained. No joint effusion is seen. The soft tissues are unremarkable. IMPRESSION: No evidence of acute fracture or dislocation. ACT 112: Negative or not required by law. Electronically signed by: Ian Romero M.D. 02/27/2024 3:39 PM Lumbar Spine MRI 02/27/24 18:06 Exam(s): MRI L SPINE Without Contrast EXAM: MR Lumbar Spine Without Intravenous Contrast CLINICAL HISTORY: Reason for exam: low back pain, urinary retention. TECHNIQUE: Magnetic resonance images of the lumbar spine without intravenous contrast in multiple planes. COMPARISON: No relevant prior studies available. FINDINGS: Vertebrae: There are 5 lumbar type vertebral bodies with a mild generalized tripped and left and normal lumbar lordosis. There is normal vertebral body height and alignment. The bone marrow signal is normal. No acute fracture. There is mild bilateral sacroiliac joint arthropathy. Spinal cord: The conus is normal size, shape and signal characteristics, terminating at T12-L1. Soft tissues: The iliopsoas, paraspinous intraspinous muscles normal. The aorta and IVC flow voids are intact. There is a the kidneys are unremarkable. DISCS/SPINAL CANAL/NEURAL FORAMINA: L1-L2: The intervertebral disc is normal. There is minimal to mild facet joint arthropathy with mild synovitis. L2-L3: There is mild disc degeneration with annular disc bulge causing a mild subarticular recess stenosis with disc extending to the neural foramina without evidence of impingement or significant stenosis. There is minimal facet arthropathy with mild synovitis. L3-L4: There is mild disc degeneration with annular disc bulge causing mild subarticular recess stenosis with disc and osteophyte extending to the neural foramina causing a mild left stenosis without evidence of neural impingement. There is mild facet arthropathy with mild synovitis. L4-L5: There is mild disc degeneration with annular disc bulge causing a mild subarticular recess stenosis with superimposed congenitally short pedicles causing a moderate spinal canal stenosis with thecal sac at measured 0.78 cm. His disc and osteophyte extending to the neural foramina causing a moderate right and mild left stenosis with mild impingement of the right L4 nerve root ganglion. There is mild facet joint arthropathy with mild synovitis. L5-S1: The intervertebral disc is normal. There is mild facet arthropathy with mild synovitis. IMPRESSION: 1. Mild disc degeneration at L2-3, L3-4 and L4-5 with annular disc bulging causing a mild subarticular recess stenosis without evidence of neural impingement. 2. There is a moderate spinal canal stenosis at L4-5. 3. There is a moderate right and mild left L4-5 neural foraminal stenosis with mild impingement of the right L4 nerve root ganglion. 4. Minimal to mild facet arthropathy with mild synovitis. 5. Mild bilateral sacral joint arthropathy. 6. No evidence of fracture, infection, tumor or arachnoiditis. Electronically signed by: Ofelia Downey MD 02/27/24 22:30 PM Pending Results Patient Have Any Pending Studies at Discharge: No Discharge Instructions Given to Patient (Per Discharging Provider) MEDICATION CHANGES: Tylenol 1,000mg by mouth three times daily. Ibuprofen 600mg every 8 hours as needed for mild pain. Gabapentin 600mg by mouth three times daily. Flexeril 10mg by mouth three times daily. Docusate sodium 100mg by mouth twice daily. Miralax 17g by mouth once daily. Mupirocin, apply to tip of penis twice daily for 1 week. SUMMARY OF TEST RESULTS: You were admitted to hospital due to inability to ambulate and right hip pain. You underwent an CT scan and Xray which showed your hardware was intact from your previous surgery. You were seen and evaluated by orthopedics. Unfortunately you need a specific MRI arthrogram that has to be done as an outpatient. PENDING TEST RESULTS: None RECOMMENDATIONS FOR FOLLOW-UP: It is extremely important that you are seen by your orthopedic surgeon so that he can order the appropriate testing to determine the etiology of your right hip pain and inability to ambulate. Continue all medications as prescribed. Please continue to utilize a walker and weight bear as tolerated on the Right hip until you are seen by your surgeon. OTHER INSTRUCTIONS: Seek medical attention if you have: * temperature above 101 * chest pain or trouble breathing * abdominal pain, nausea, vomiting * diarrhea, dark stools or bloody stools * any unanswered questions or concerns Call 911 if symptoms are severe. Please take good care of yourself. It has been a pleasure taking care of you. Please take care of yourself. If you have any questions regarding your recent hospitalization please contact [facility] and request Kee Mazariegos @ [phone]. Sharron Topete PA-C Total Time Total Time Spent Total Time Spent (In Minutes): 45 minutes Supervising Physician Co-Signing Physician Notes Patient seen and examined at bedside. He reports that the pain is better controlled with current medication with gabapentin. He has an appointment with his outpatient provider for evaluation of the hip Instructions given to [facility] regarding follow-up I have reviewed the advanced practitioner's documentation, and I agree with, and take responsibility for the plan of care
== END 2024-03-04 13:25 | DRG 914 ==
LOC: ED 13:43 → SUATTDRO 17:44 → 3W 17:44

== ENCOUNTER 2024-04-12 16:42 | Observation (INO) ==
--- NOTE | 2024-04-12 17:05 | Emergency Department Note ---
ED Provider Note History of Present Illness Chief Complaint: Hip Pain Stated Complaint: RT HIP PAIN Time Seen by Provider: 04/12/24 16:48 43-year-old male [facility] inmate who presents the emergency department with complaint of severe right hip pain. The patient reports that he was admitted to our facility over a month ago with similar symptoms. The patient was eventually discharged back to [facility]. The patient reports that he was supposed to follow-up with orthopedics, however that has yet to be arranged. The patient reports a prior history of hip fracture with a pin in place. Patient also reports history of arthroscopy of the hip joint, showing significant arthritis and prior labral injury. Patient also reports a history of chronic back pain, but reports that his current pain is most consistent with his hip pain as opposed to his chronic back pain. Patient reports that his hip is locked in place and he cannot move it, rating his discomfort a 10 out of 10. Home Medications Medication Instructions Recorded Confirmed Type cetirizine 10 mg capsule 10 mg PO QAM 07/11/23 04/12/24 History meloxicam 15 mg tablet 15 mg PO QAM 07/11/23 04/12/24 History omeprazole 20 mg capsule,delayed 20 mg PO QAM 07/11/23 04/12/24 History release albuterol sulfate 90 mcg/actuation 1 inh inhalation QID PRN 08/09/23 04/12/24 History aerosol inhaler sob/wheezing tamsulosin 0.4 mg capsule 0.4 mg PO DAILY #90 caps 09/03/23 04/12/24 Rx acetaminophen 500 mg tablet 1,000 mg (2 x 500 mg) PO Q8H #90 03/04/24 04/12/24 Rx (Tylenol Extra Strength) tabs cyclobenzaprine 10 mg tablet 10 mg PO TID #90 tabs 03/04/24 04/12/24 Rx docusate sodium 100 mg capsule 100 mg PO BID #60 caps 03/04/24 04/12/24 Rx ibuprofen 600 mg tablet 600 mg PO Q8H PRN pain (scale 03/04/24 04/12/24 Rx score 1-3) #90 tabs mupirocin 2 % topical ointment 1 applic EXT BID #22 grams 03/04/24 04/12/24 Rx oxycodone 5 mg tablet 5 mg PO Q4H PRN severe pain (scale 03/04/24 04/12/24 Rx score 7-10) #12 tabs polyethylene glycol 3350 17 gram 17 g PO DAILY #30 ea 03/04/24 04/12/24 Rx oral powder packet (Miralax) gabapentin 600 mg tablet 0 mg PO TID 04/12/24 04/12/24 History Allergies Allergy/AdvReac Type Severity Reaction Status Date / Time No Known Allergies Allergy Verified 07/26/23 05:57 Past Med/Surg History Problem List (Updated 04/12/24 @ 20:32 by Ronnie Velazquez) History of hip surgery (Acute) Acute pain of right hip (Acute) Intractable pain (Acute) Inability to ambulate due to hip (Acute) Right hip pain (Acute) Urinary hesitancy Scrotal pain (Acute) Testicular pain Epididymitis Medical History Urinary retention Left varicocele GERD (gastroesophageal reflux disease) Allergic rhinitis Chronic pain Bulging lumbar disc DDD (degenerative disc disease), lumbar Surgical History Hx of left inguinal hernia repair (~05/17/23) History of repair of right hip joint Hx of appendectomy Hx of shoulder surgery lt, labrum, AC and Bursa Social History Smoking Status: Never smoker Tobacco Type: Smokeless Tobacco (Dip or Chew) Second Hand Exposure: No; Do You Dip or Chew Tobacco: Yes; Hx Alcohol Use: No Hx Substance Use: No Preferred Language: Luxembourgish Communication Ability: Effective [employer] Supervisor Required: No Beliefs That Will Affect Care: None Current Living Situation: Other Current Living Situation Comment: ASSISTED Feels Safe at Home: Yes Assistive Devices: None Physical Exam Vital Signs Vital Signs - 24 hr 04/12/24 16:43 04/12/24 18:42 04/12/24 19:47 Temperature 36.5 C Temperature Source Temporal Artery Scan Pulse Rate 81 72 Pulse Rate [Apical] 86 Pulse Rhythm [Apical] Regular Pulse Strength [Apical] Normal Respiratory Rate 20 20 Respiratory Effort / Characteristics Non-Labored Respiratory Depth Normal Respiratory Pattern Regular Blood Pressure 127/79 Blood Pressure [Right Arm] 141/96 H Blood Pressure Mean 95 Blood Pressure Mean [Right Arm] 111 Pulse Oximetry 99 97 Oxygen Delivery Method Room Air Sepsis Recent Fever Within 48 Hours No Sepsis New/Unexplained Change in Mental Status N/A Sepsis Action Taken by Nursing No Action Required 04/12/24 20:00 04/12/24 20:12 Temperature Temperature Source Pulse Rate 67 Pulse Rate [Apical] 64 Pulse Rhythm [Apical] Pulse Strength [Apical] Respiratory Rate 16 16 Respiratory Effort / Characteristics Respiratory Depth Respiratory Pattern Blood Pressure 130/75 Blood Pressure [Right Arm] 125/67 Blood Pressure Mean 93 Blood Pressure Mean [Right Arm] 86 Pulse Oximetry 98 99 Oxygen Delivery Method Sepsis Recent Fever Within 48 Hours Sepsis New/Unexplained Change in Mental Status Sepsis Action Taken by Nursing CONSTITUTIONAL: Healthy and well nourished. Patient appears in severe discomfort, and is holding his right hip and knee in a flexed position. HEENT: Normocephalic, atraumatic. MUSCULOSKELETAL: Patient has tenderness to palpation to the right lower back and SI joint. Patient refuses any attempted range of motion of the right lower extremity. INTEGUMENTARY: No rash or other significant dermatologic conditions noted. HEMATOLOGIC: No ecchymosis or petechiae. PSYCHIATRIC: Positive affect. NEUROLOGIC: No focal neurologic deficits noted. Course Course Patient history and physical exam were performed. Nurses notes were reviewed. Vital signs were reviewed and were normal. I did review prior medical records, showing that the patient was admitted to our facility on 02/27/2024. He was eventually discharged from our facility on 03/04/2024. The patient does have extensive details of orthopedic consultation on his discharge note. Orthopedics from [facility] and [facility] essentially refused transfer of this patient. They did speak with the patient's prior orthopedic surgeon, Dr. Morel ([facility]) who agreed to see the patient in his clinic, and was preliminarily scheduled for 03/05/2024. It appears that the patient's scheduling had to be approved through the correction system, and I suspect that the patient got lost in this process. IV access was established, and labs are drawn. The patient was administered IV fentanyl, Toradol and Zofran for his pain. Labs were also ordered. The patient was then ordered a noncontrast CT of the hip which did not show any acute findings. The patient did require several rounds of IV Dilaudid with poor pain control. The patient reports that he also has not urinated since 10 AM this morning, and has notable abdominal pressure. At this point, the patient reported that he would be unable to return to correction as they expect him to walk, and he cannot even move his hip at this point. A Abrams catheter was ordered and was inserted. The case was then discussed with the [facility] service (Dr. Jeong) who agrees with admission. Please see his dictation for further treatment and final disposition. Administered Medications Hydromorphone HCl (Hydromorphone Inj 0.5 Mg/0.5 Ml Syr) 0.5 mg IV Q1H PRN PRN Reason: Pain Stop: 04/26/24 18:53 Last Admin: 04/12/24 20:45 Dose: 0.5 mg Documented By: Admin: 04/12/24 19:19 Dose: 0.5 mg Documented By: JOHNSON Discontinued Medications Fentanyl Citrate (Fentanyl Citrate Pf 100 Mcg/2 Ml Vial) 50 mcg IV NOW STA Stop: 04/12/24 17:01 Last Admin: 04/12/24 17:12 Dose: 50 mcg Documented By: L Hydromorphone HCl (Hydromorphone Inj 1 Mg/Ml Syringe) 0.5 mg IV NOW STA Stop: 04/12/24 17:00 Last Admin: 04/12/24 17:29 Dose: 0.5 mg Documented By: SRL Hydromorphone HCl (Hydromorphone Inj 0.5 Mg/0.5 Ml Syr) 0.5 mg IV NOW STA Stop: 04/12/24 17:37 Last Admin: 04/12/24 17:43 Dose: 0.5 mg Documented By: SRL Ketorolac Tromethamine (Ketorolac Tromethamine 15 Mg/Ml Vial) 15 mg IV NOW STA Stop: 04/12/24 17:00 Last Admin: 04/12/24 17:12 Dose: 15 mg Documented By: SRL Ondansetron HCl (Ondansetron Inj 2 Mg/Ml 2 Ml Vial) 4 mg IV NOW STA Stop: 04/12/24 17:00 Last Admin: 04/12/24 17:13 Dose: 4 mg Documented By: SRL Medical Decision Making Medical Records Attestation: I reviewed the patient's medical records. Home Medications was personally reviewed by me Laboratory Data Attestation: I reviewed the patient's lab results. 04/12/24 17:05 04/12/24 17:05 Lab Results 04/12/24 Range/Units 17:05 WBC 8.86 (4.8-10.8) K/ul RBC 5.24 (4.70-6.10) M/uL Hgb 15.6 (14.0-18.0) g/dl Hct 46.6 (42.0-52.0) % MCV 88.9 (80.0-100.0) fL MCH 29.8 (25.0-34.0) pg MCHC 33.5 (32.0-36.0) g/dL RDW Std Deviation 38.5 (36.4-46.3) fL RDW Coeff of Nery 11.9 (11.5-14.5) % Plt Count 237 (130-400) K/uL MPV 8.8 L (9.4-12.4) fL Immature Gran % (Auto) 0.3 % Neut % (Auto) 77.5 % Lymph % (Auto) 16.8 % Sierra % (Auto) 4.2 % Eos % (Auto) 0.7 % Baso % (Auto) 0.5 % Neut # (Auto) 6.87 H (1.40-6.50) K/uL Lymph # (Auto) 1.49 (1.20-3.40) K/uL Sierra # (Auto) 0.37 (0.11-0.59) K/uL Eos # (Auto) 0.06 (0.00-0.50) K/uL Baso # (Auto) 0.04 (0.00-0.20) K/uL Immature Gran # (Auto) 0.03 (0.01-0.20) K/uL ESR 2 (0-15) mm/hr Sodium 137 (136-145) mmol/L Potassium 3.8 (3.5-5.1) mmol/L Chloride 101 (98-107) mmol/L Carbon Dioxide 27 (21-32) mmol/L Anion Gap 9 (3-11) BUN 16 (6-23) mg/dl Creatinine 0.95 (0.6-1.4) mg/dl Est Cr Clr Drug Dosing Not Reportable eGFR 100.59 BUN/Creatinine Ratio 16.8 (10-20) Glucose 108 H (70-99(Fasting)) mg/dl Calcium 9.8 (8.6-10.3) mg/dl Total Bilirubin 0.5 (0.2-1.0) mg/dl AST 18 (13-39) U/L ALT 12 (7-52) U/L Alkaline Phosphatase 72 (34-104) U/L Total Protein 7.6 (6.0-8.3) gm/dl Albumin 5.1 H (3.4-5.0) gm/dl Globulin 2.5 (2.5-4.0) gm/dl Albumin/Globulin Ratio 2.0 (0.9-2) Imaging Data Attestation: I personally reviewed and interpreted this imaging study as follows: My Impression: My interpretation of a noncontrast CT of the right hip does not show any obvious fractures or dislocation. No periprosthetic disease or loosening is appreciated. Radiologist report was otherwise reviewed with concurrence. Radiologist's Impression: Hip CT 04/12/24 16:59 EXAM: CT Pelvis Without Intravenous Contrast INDICATION: Pain. TECHNIQUE: Axial computed tomography images of the pelvis without intravenous contrast. Sagittal and coronal reformatted images were created and reviewed. This CT exam was performed using one or more of the following dose reduction techniques: automated exposure control, adjustment of the mA and/or kV according to patient size, and/or use of iterative reconstruction technique. COMPARISON: 02/27/2024 FINDINGS: Bones/joints: Hardware in the proximal right femur is well-seated and intact. There is very minimal degenerative sclerosis and cortical surface irregularity of the acetabular cup and mild posterior acetabular joint space narrowing. No acute fracture or significant chronic deformity. Soft tissues: No significant abnormality noted. Bladder: Appears normal for the degree of filling. No stones or inflammation. No large mass. Masses may not be detected in the absence of opacification. IMPRESSION: No acute abnormality of the right hip noted. No interval change. ACT 112: Negative or not required by law. Electronically signed by Gela Correia 04-12-2024 6:29 PM [facility] Narrative See ED Course section for further details of today's visit. The patient returns the emergency department with complaint of severe pain in his right hip with inability to move the hip or weight-bear. The patient was admitted to our facility over a month ago, and did have an outpatient follow-up scheduled with his orthopedic surgeon in [place]; unfortunately, it appears that [facility] did not follow through with that appointment (according to the patient). Patient did have intractable pain while in the emergency department, as well as urinary retention. The patient did require 4 different rounds of IV analgesics with poor pain control. A Abrams catheter was also inserted to decompress the bladder. Lab work were unremarkable, and CT imaging of the hip again does not show evidence for any hardware issues, fractures or dislocation. Given his intractable pain, the [facility] service was consulted, who agrees with admission. Impression Intractable pain, Acute pain of right hip, History of hip surgery Discharge Plan Visit Data Chief Complaint: Hip Pain Stated Complaint: RT HIP PAIN ED Provider: Shawn Newsome ED Midlevel Provider: Ronnie Velazquez Discharge Problem: Intractable pain, Acute pain of right hip, History of hip surgery Forms Stand Alone Forms: [facility] Prescriptions Prescriptions: No Action albuterol sulfate 90 mcg/actuation HFA aerosol inhaler 1 inh inhalation QID PRN (Reason: sob/wheezing) tamsulosin 0.4 mg capsule 0.4 mg PO DAILY Qty: 90 3RF cyclobenzaprine 10 mg Tablet 10 mg PO TID Qty: 90 0RF polyethylene glycol 3350 [Miralax] 17 gram Powder In Packet 17 g PO DAILY Qty: 30 0RF acetaminophen [Tylenol Extra Strength] 500 mg Tablet 1,000 mg PO Q8H Qty: 90 0RF docusate sodium 100 mg Capsule 100 mg PO BID Qty: 60 0RF mupirocin 2 % Ointment 1 applic EXT BID Qty: 22 0RF Rx Instructions: apply to tip of penis bid x 1 week ibuprofen 600 mg Tablet 600 mg PO Q8H PRN (Reason: pain (scale score 1-3)) Qty: 90 0RF oxycodone 5 mg Tablet 5 mg PO Q4H PRN (Reason: severe pain (scale score 7-10)) Qty: 12 0RF gabapentin 600 mg Tablet 0 mg PO TID Rx Instructions: WAS TAKING 600 MG TID ON 03/04/24 UNABLE TO VERIFY WITH PT meloxicam 15 mg Tablet 15 mg PO QAM Hold Instructions: Resume on 03/11/24. Hold until you are off the as needed ibuprofen omeprazole 20 mg Capsule,Delayed Release(Dr/Ec) 20 mg PO QAM cetirizine 10 mg Capsule 10 mg PO QAM Referrals Referrals: Vinod Oreilly M.D. [Outside Practitioners] -
[2024-04-12] MEDS: KETOROLAC TROMETHAMINE 15 MG/ML VIAL IV STA (17:12)
[2024-04-12] MEDS: fentaNYL citrate PF 100 MCG/2 ML VIAL IV STA (17:12)
[2024-04-12] MEDS: ONDANSETRON INJ 2 MG/ML 2 ML VIAL IV STA (17:13)
[2024-04-12 17:20] LABS: Basophils # (auto) 0.04 K/uL (0.00-0.20); Basophils % (auto) 0.5 %; Eosinophils # (auto) 0.06 K/uL (0.00-0.50); Eosinophils % (auto) 0.7 %; Hematocrit (blood only) 46.6 % (42.0-52.0); Hemoglobin 15.6 g/dl (14.0-18.0); Immature Granulocytes # (auto) 0.03 K/uL (0.01-0.20); Immature Granulocytes % (auto) 0.3 %; Lymphocytes # (auto) 1.49 K/uL (1.20-3.40); Lymphocytes % (auto) 16.8 %; Mean Corpuscular Hemoglobin 29.8 pg (25.0-34.0); Mean Corpuscular Hgb Conc 33.5 g/dL (32.0-36.0); Mean Corpuscular Volume 88.9 fL (80.0-100.0); Mean Platelet Volume 8.8 fL (9.4-12.4); Monocytes # (auto) 0.37 K/uL (0.11-0.59); Monocytes % (auto) 4.2 %; Neutrophils # (auto) 6.87 K/uL (1.40-6.50); Neutrophils % (auto) 77.5 %; Platelet Count 237 K/uL (130-400); RDW Coefficient of Variation 11.9 % (11.5-14.5); RDW Standard Deviation 38.5 fL (36.4-46.3); Red Blood Count 5.24 M/uL (4.70-6.10); White Blood Count 8.86 K/ul (4.8-10.8)
[2024-04-12] MEDS: HYDROmorphone INJ 1 MG/ML SYRINGE IV STA (17:29)
[2024-04-12 17:38] LABS: Alanine Aminotransferase 12 U/L (7-52); Albumin Level 5.1 gm/dl (3.4-5.0); Alkaline Phosphatase 72 U/L (34-104); Anion Gap 9 (3-11); Aspartate Aminotransferase 18 U/L (13-39); BUN Creatinine Ratio 16.8 (10-20); Bilirubin,Total 0.5 mg/dl (0.2-1.0); Blood Urea Nitrogen 16 mg/dl (6-23); Calcium 9.8 mg/dl (8.6-10.3); Carbon Dioxide 27 mmol/L (21-32); Chloride 101 mmol/L (98-107); Globulin 2.5 gm/dl (2.5-4.0); Glucose 108 mg/dl (70-99(Fasting)); Potassium 3.8 mmol/L (3.5-5.1); Sodium 137 mmol/L (136-145); Total Protein 7.6 gm/dl (6.0-8.3)
[2024-04-12] MEDS: HYDROmorphone INJ 0.5 MG/0.5 ML SYR IV STA (17:43)
--- NOTE | 2024-04-12 18:30 | CT Scan Report ---
EXAM: CT Pelvis Without Intravenous Contrast INDICATION: Pain. TECHNIQUE: Axial computed tomography images of the pelvis without intravenous contrast. Sagittal and coronal reformatted images were created and reviewed. This CT exam was performed using one or more of the following dose reduction techniques: automated exposure control, adjustment of the mA and/or kV according to patient size, and/or use of iterative reconstruction technique. COMPARISON: 02/27/2024 FINDINGS: Bones/joints: Hardware in the proximal right femur is well-seated and intact. There is very minimal degenerative sclerosis and cortical surface irregularity of the acetabular cup and mild posterior acetabular joint space narrowing. No acute fracture or significant chronic deformity. Soft tissues: No significant abnormality noted. Bladder: Appears normal for the degree of filling. No stones or inflammation. No large mass. Masses may not be detected in the absence of opacification. IMPRESSION: No acute abnormality of the right hip noted. No interval change. ACT 112: Negative or not required by law. Electronically signed by Gela Correia 04-12-2024 6:29 PM
[2024-04-12] MEDS: HYDROmorphone INJ 0.5 MG/0.5 ML SYR IV PRN ×2 (19:19→23:53)
--- NOTE | 2024-04-12 22:16 | History & Physical Report ---
Date of Service April 12, 2024 Assessment & Plan (1) Inability to ambulate due to hip: Plan: 43-year-old male with past medical history significant for seasonal allergies, chronic low back pain, chronic right hip pain secondary to fall requiring surgical intervention, history of medical marijuana use, history of urinary retention comes from halfway because of severe right hip pain and ambulatory dysfunction. Patient was in the hospital from February 27, 2024 to March 04 2024 with a similar presentation. Was seen by orthopedics and also pain management last admission. Orthopedics recommended transfer to [facility] for MRI arthrogram. Was discussed with [facility] and also [facility] for possible transfer last admit but they recommended no need of urgent transfer and advised to follow as outpatient. Was also contacted Dr. Kurtis Coello who did the initial surgery and he was willing to see him in his clinic and that there was a appointment made on 03/05/2024 at [facility] and halfway was notified about the appointment but seems patient missed the appointment. Patient states after his discharge from here he was walking with the crutches but soon he became wheelchair-bound. And he finished his pain medication regimen couple of weeks ago. Last few days developed severe pain in his right hip region and having difficulty moving his right hip because of pain ,thats the reason he was brought in here today. He is also having difficulty urination. Status post Abrams cath in the ER currently. Says he is somewhat constipated. States he has control over his bowel and bladder movements. Has some abdominal discomfort. Denies any chest pain or shortness of breath. Denies any fevers. No cough. No headache. No runny nose or sore throat. No difficulty swallowing. Hemodynamics are okay. Unable to ambulate due to right hip pain Severe right hip pain CT pelvis no acute findings Pain control Had similar presentation in February and Ortho recommended transfer for MRI arthrogram but was not accepted in transfer And there was an appointment made with Dr. Kurtis Coello at [place] who initially did surgery but patient missed the appointment Ortho consult in a.m. for any further recommendations GERD Continue omeprazole Urinary retention On Flomax Status post Abrams catheter in ER Consult urology in a.m. for further recommendations DVT prophylaxis Heparin subcu Disposition Medical floor Full code History of Present Illness Chief Complaint: Right hip pain and ambulatory dysfunction Primary Care Provider: HOWIE Mack 43-year-old male with past medical history significant for seasonal allergies, chronic low back pain, chronic right hip pain secondary to fall requiring surgical intervention, history of medical marijuana use, history of urinary retention comes from halfway because of severe right hip pain and ambulatory dysfunction. Patient was in the hospital from February 27, 2024 to March 04 2024 with a similar presentation. Was seen by orthopedics and also pain management last admission. Orthopedics recommended transfer to tertiary's center for MRI arthrogram. Was discussed with [facility] and also [facility] for possible transfer last admit but they recommended no need of urgent transfer and advised to follow as outpatient. Was also contacted Dr. Kurtis Coello who did the initial surgery and he was willing to see him in his clinic and that there was a appointment made on 03/05/2024 at [facility] and halfway was notified about the appointment but seems patient missed the appointment. Patient states after his discharge from here he was walking with the crutches but soon he became wheelchair-bound. And he finished his pain medication regimen couple of weeks ago. Last few days developed severe pain in his right hip region and having difficulty moving his right hip because of pain ,thats the reason he was brought in here today. He is also having difficulty urination. Status post Abrams cath in the ER currently. Says he is somewhat constipated. States he has control over his bowel and bladder movements. Has some abdominal discomfort. Denies any chest pain or shortness of breath. Denies any fevers. No cough. No headache. No runny nose or sore throat. No difficulty swallowing. Hemodynamics are okay. Past medical history. As mentioned above. Past surgical history. Left inguinal hernia repair. Right hip joint repair. History of appendectomy. History of shoulder surgery. Social history. No smoking. Chews tobacco. Alcohol use. History of marijuana use. Allergies Allergy/AdvReac Type Severity Reaction Status Date / Time No Known Allergies Allergy Verified 07/26/23 05:57 Home Medications Medication Instructions Recorded Confirmed Type cetirizine 10 mg capsule 10 mg PO QAM 07/11/23 04/12/24 History meloxicam 15 mg tablet 15 mg PO QAM 07/11/23 04/12/24 History omeprazole 20 mg capsule,delayed 20 mg PO QAM 07/11/23 04/12/24 History release albuterol sulfate 90 mcg/actuation 1 inh inhalation QID PRN 08/09/23 04/12/24 History aerosol inhaler sob/wheezing tamsulosin 0.4 mg capsule 0.4 mg PO DAILY #90 caps 09/03/23 04/12/24 Rx acetaminophen 500 mg tablet 1,000 mg (2 x 500 mg) PO Q8H #90 03/04/24 04/12/24 Rx (Tylenol Extra Strength) tabs cyclobenzaprine 10 mg tablet 10 mg PO TID #90 tabs 03/04/24 04/12/24 Rx docusate sodium 100 mg capsule 100 mg PO BID #60 caps 03/04/24 04/12/24 Rx ibuprofen 600 mg tablet 600 mg PO Q8H PRN pain (scale 03/04/24 04/12/24 Rx score 1-3) #90 tabs mupirocin 2 % topical ointment 1 applic EXT BID #22 grams 03/04/24 04/12/24 Rx oxycodone 5 mg tablet 5 mg PO Q4H PRN severe pain (scale 03/04/24 04/12/24 Rx score 7-10) #12 tabs polyethylene glycol 3350 17 gram 17 g PO DAILY #30 ea 03/04/24 04/12/24 Rx oral powder packet (Miralax) gabapentin 600 mg tablet 0 mg PO TID 04/12/24 04/12/24 History Past Med/Surg History Problem List (Updated 04/12/24 @ 20:32 by Ronnie Velazquez) History of hip surgery (Acute) Acute pain of right hip (Acute) Intractable pain (Acute) Inability to ambulate due to hip (Acute) Right hip pain (Acute) Urinary hesitancy Scrotal pain (Acute) Testicular pain Epididymitis Medical History Urinary retention Left varicocele GERD (gastroesophageal reflux disease) Allergic rhinitis Chronic pain Bulging lumbar disc DDD (degenerative disc disease), lumbar Surgical History Hx of left inguinal hernia repair (~05/17/23) History of repair of right hip joint Hx of appendectomy Hx of shoulder surgery lt, labrum, AC and Bursa Social History Smoking Status: Never smoker Tobacco Type: Smokeless Tobacco (Dip or Chew) Second Hand Exposure: No; Do You Dip or Chew Tobacco: Yes; Hx Alcohol Use: No Hx Substance Use: No Preferred Language: Colombian Communication Ability: Effective Fabricator Foam Rubber Required: No Beliefs That Will Affect Care: None Current Living Situation: Other Current Living Situation Comment: Inmate Feels Safe at Home: Yes Safety Concerns: Feels Safe At This Time Assistive Devices: Glasses and Wheelchair Review of Systems Review of Systems: All systems reviewed & are unremarkable except as noted in HPI & below Physical Exam Physical Exam: General- Not in distress. Head- atraumatic Eyes- PERRL. ENT- oropharynx clear Neck- supple, no JVD. Lungs- clear to auscultation no wheezing or crackles Heart- regular rate and rhythm; no murmur, no gallop. Abdomen- normal bowel sounds, soft, nontender, no distension Extremities- no pretibial edema,very painful right hip movements Neuro- alert, oriented PERRL, EOMI; no facial palsy; no dysarthria; moves extremities except right lower extremity Results & Data Results & Data Vital Signs (Past 12 Hours) Vital Signs Temp Pulse Pulse Resp BP BP Pulse Ox 04/12/24 22:00 66 16 128/76 98 04/12/24 20:12 67 16 130/75 99 04/12/24 20:00 64 16 125/67 98 04/12/24 19:47 72 04/12/24 18:42 86 20 141/96 H 97 04/12/24 16:43 36.5 C 81 20 127/79 99 O2 Del Method 04/12/24 22:00 04/12/24 20:12 04/12/24 20:00 04/12/24 19:47 04/12/24 18:42 Room Air 04/12/24 16:43 Diagnostic Findings Laboratory Results WBC 8.86 K/ul (4.8-10.8) 04/12/24 17:05 RBC 5.24 M/uL (4.70-6.10) 04/12/24 17:05 Hgb 15.6 g/dl (14.0-18.0) 04/12/24 17:05 Hct 46.6 % (42.0-52.0) 04/12/24 17:05 MCV 88.9 fL (80.0-100.0) 04/12/24 17:05 MCH 29.8 pg (25.0-34.0) 04/12/24 17:05 MCHC 33.5 g/dL (32.0-36.0) 04/12/24 17:05 RDW Std Deviation 38.5 fL (36.4-46.3) 04/12/24 17:05 RDW Coeff of Nery 11.9 % (11.5-14.5) 04/12/24 17:05 Plt Count 237 K/uL (130-400) 04/12/24 17:05 MPV 8.8 fL (9.4-12.4) L 04/12/24 17:05 Immature Gran % (Auto) 0.3 % 04/12/24 17:05 Neut % (Auto) 77.5 % 04/12/24 17:05 Lymph % (Auto) 16.8 % 04/12/24 17:05 Davidson % (Auto) 4.2 % 04/12/24 17:05 Eos % (Auto) 0.7 % 04/12/24 17:05 Baso % (Auto) 0.5 % 04/12/24 17:05 Neut # (Auto) 6.87 K/uL (1.40-6.50) H 04/12/24 17:05 Lymph # (Auto) 1.49 K/uL (1.20-3.40) 04/12/24 17:05 Davidson # (Auto) 0.37 K/uL (0.11-0.59) 04/12/24 17:05 Eos # (Auto) 0.06 K/uL (0.00-0.50) 04/12/24 17:05 Baso # (Auto) 0.04 K/uL (0.00-0.20) 04/12/24 17:05 Immature Gran # (Auto) 0.03 K/uL (0.01-0.20) 04/12/24 17:05 ESR 2 mm/hr (0-15) 04/12/24 17:05 Sodium 137 mmol/L (136-145) 04/12/24 17:05 Potassium 3.8 mmol/L (3.5-5.1) 04/12/24 17:05 Chloride 101 mmol/L (98-107) 04/12/24 17:05 Carbon Dioxide 27 mmol/L (21-32) 04/12/24 17:05 Anion Gap 9 (3-11) 04/12/24 17:05 BUN 16 mg/dl (6-23) 04/12/24 17:05 Creatinine 0.95 mg/dl (0.6-1.4) 04/12/24 17:05 Est Cr Clr Drug Dosing Not Reportable 04/12/24 17:05 eGFR 100.59 04/12/24 17:05 BUN/Creatinine Ratio 16.8 (10-20) 04/12/24 17:05 Glucose 108 mg/dl (70-99(Fasting)) H 04/12/24 17:05 Calcium 9.8 mg/dl (8.6-10.3) 04/12/24 17:05 Total Bilirubin 0.5 mg/dl (0.2-1.0) 04/12/24 17:05 AST 18 U/L (13-39) 04/12/24 17:05 ALT 12 U/L (7-52) 04/12/24 17:05 Alkaline Phosphatase 72 U/L (34-104) 04/12/24 17:05 Total Protein 7.6 gm/dl (6.0-8.3) 04/12/24 17:05 Albumin 5.1 gm/dl (3.4-5.0) H 04/12/24 17:05 Globulin 2.5 gm/dl (2.5-4.0) 04/12/24 17:05 Albumin/Globulin Ratio 2.0 (0.9-2) 04/12/24 17:[address] 04/12/24 16:59 EXAM: CT Pelvis Without Intravenous Contrast INDICATION: Pain. TECHNIQUE: Axial computed tomography images of the pelvis without intravenous contrast. Sagittal and coronal reformatted images were created and reviewed. This CT exam was performed using one or more of the following dose reduction techniques: automated exposure control, adjustment of the mA and/or kV according to patient size, and/or use of iterative reconstruction technique. COMPARISON: 02/27/2024 FINDINGS: Bones/joints: Hardware in the proximal right femur is well-seated and intact. There is very minimal degenerative sclerosis and cortical surface irregularity of the acetabular cup and mild posterior acetabular joint space narrowing. No acute fracture or significant chronic deformity. Soft tissues: No significant abnormality noted. Bladder: Appears normal for the degree of filling. No stones or inflammation. No large mass. Masses may not be detected in the absence of opacification. IMPRESSION: No acute abnormality of the right hip noted. No interval change. ACT 112: Negative or not required by law. Electronically signed by Gela Correia 04-12-2024 6:29 PM Code Status & VTE Plan VTE Prophylaxis Plan VTE Prophylaxis will be ordered: Yes
[2024-04-12] MEDS ORDERED: HYDROmorphone INJ 0.5 MG/0.5 ML SYR IV PRN (23:25)
[2024-04-12] MEDS ORDERED: ALBUTEROL HFA 8 GM INHALER INH PRN (23:25)
[2024-04-13] MEDS: ACETAMINOPHEN 325 MG TAB PO PRN (00:28)
[2024-04-13] MEDS: CYCLOBENZAPRINE HCL 10 MG TAB PO STA (00:29)
[2024-04-13 06:29] LABS: Basophils # (auto) 0.05 K/uL (0.00-0.20); Basophils % (auto) 0.7 %; Eosinophils # (auto) 0.16 K/uL (0.00-0.50); Eosinophils % (auto) 2.3 %; Hematocrit (blood only) 44.3 % (42.0-52.0); Hemoglobin 14.7 g/dl (14.0-18.0); Immature Granulocytes # (auto) 0.01 K/uL (0.01-0.20); Immature Granulocytes % (auto) 0.1 %; Lymphocytes # (auto) 2.33 K/uL (1.20-3.40); Mean Corpuscular Hemoglobin 30.4 pg (25.0-34.0); Mean Corpuscular Hgb Conc 33.2 g/dL (32.0-36.0); Mean Corpuscular Volume 91.5 fL (80.0-100.0); Mean Platelet Volume 9.2 fL (9.4-12.4); Monocytes # (auto) 0.62 K/uL (0.11-0.59); Monocytes % (auto) 8.8 %; Neutrophils # (auto) 3.88 K/uL (1.40-6.50); Neutrophils % (auto) 55.1 %; Platelet Count 189 K/uL (130-400); RDW Coefficient of Variation 11.9 % (11.5-14.5); RDW Standard Deviation 39.8 fL (36.4-46.3); Red Blood Count 4.84 M/uL (4.70-6.10); White Blood Count 7.05 K/ul (4.8-10.8)
[2024-04-13 06:47] LABS: BUN Creatinine Ratio 15.7 (10-20); Calcium 8.9 mg/dl (8.6-10.3); Creatinine Clr Calc Pharmacy 100.4 ml/min; Magnesium 2.1 mg/dl (1.7-2.4); Potassium 4.2 mmol/L (3.5-5.1)
--- NOTE | 2024-04-13 07:58 | Urology Consultation ---
Date of Consultation April 13, 2024 Assessment & Plan (1) Urinary hesitancy: (2) Urinary retention: Plan 43-year-old male who presented to the emergency department on 04/12/2024 for right hip pain. Labs showed a white blood cell count of 7.05, hemoglobin 14.7, creatinine of 1.02. Lumbar spine and hip CT were performed. Abrams catheter was placed in the emergency department. It sounds as if the catheter was placed more for comfort for him given he was having difficulty urinating in bed due to his right hip pain. Therefore, this can be removed per primary team and patient's desire Urology will send a message to schedule outpatient follow-up as patient will likely need further workup giving his recurrent retention and symptoms not improving. That being said, it sounds like his right hip should be addressed prior to any urologic potential interventions Urology to sign off History of Present Illness Attending Physician: Hugo Weinstein MD History of Present Illness 43-year-old male who presented to the emergency department on 04/12/2024 for right hip pain. Labs showed a white blood cell count of 7.05, hemoglobin 14.7, creatinine of 1.02. Lumbar spine and hip CT were performed. Abrams catheter was placed in the emergency department. Patient was previously seen as a urology consult in 02/28/2024 for urinary hesitancy and was taking Flomax. He was in urinary retention at that time of consultation as well. He is a patient of Dr. Pena and has a history of microsurgical varicocelectomy. He reports his urinary symptoms were relatively stable but bothersome at the present however given his worsening right hip pain, a catheter was placed as he was having difficulty voiding and a urinal at in bed Allergies Allergy/AdvReac Type Severity Reaction Status Date / Time No Known Allergies Allergy Verified 07/26/23 05:57 Home Medications Medication Instructions Recorded Confirmed Type cetirizine 10 mg capsule 10 mg PO QAM 07/11/23 04/12/24 History meloxicam 15 mg tablet 15 mg PO QAM 07/11/23 04/12/24 History omeprazole 20 mg capsule,delayed 20 mg PO QAM 07/11/23 04/12/24 History release albuterol sulfate 90 mcg/actuation 1 inh inhalation QID PRN 08/09/23 04/12/24 History aerosol inhaler sob/wheezing tamsulosin 0.4 mg capsule 0.4 mg PO DAILY #90 caps 09/03/23 04/12/24 Rx acetaminophen 500 mg tablet 1,000 mg (2 x 500 mg) PO Q8H #90 03/04/24 04/12/24 Rx (Tylenol Extra Strength) tabs cyclobenzaprine 10 mg tablet 10 mg PO TID #90 tabs 03/04/24 04/12/24 Rx docusate sodium 100 mg capsule 100 mg PO BID #60 caps 03/04/24 04/12/24 Rx ibuprofen 600 mg tablet 600 mg PO Q8H PRN pain (scale 03/04/24 04/12/24 Rx score 1-3) #90 tabs mupirocin 2 % topical ointment 1 applic EXT BID #22 grams 03/04/24 04/12/24 Rx oxycodone 5 mg tablet 5 mg PO Q4H PRN severe pain (scale 03/04/24 04/12/24 Rx score 7-10) #12 tabs polyethylene glycol 3350 17 gram 17 g PO DAILY #30 ea 03/04/24 04/12/24 Rx oral powder packet (Miralax) gabapentin 600 mg tablet 0 mg PO TID 04/12/24 04/12/24 History Patient History Medical History Urinary retention Left varicocele GERD (gastroesophageal reflux disease) Allergic rhinitis Chronic pain Bulging lumbar disc DDD (degenerative disc disease), lumbar Surgical History Hx of left inguinal hernia repair (~05/17/23) History of repair of right hip joint Hx of appendectomy Hx of shoulder surgery lt, labrum, AC and Bursa Social History Smoking Status: Never smoker Tobacco Type: Smokeless Tobacco (Dip or Chew) Second Hand Exposure: No; Do You Dip or Chew Tobacco: Yes; Hx Alcohol Use: No Hx Substance Use: No Preferred Language: Kenyan Communication Ability: Effective Oss Architect Required: No Beliefs That Will Affect Care: None Current Living Situation: Other Current Living Situation Comment: Inmate Feels Safe at Home: Yes Safety Concerns: Feels Safe At This Time Assistive Devices: Glasses and Wheelchair Physical Exam Physical Exam: General: Alert and oriented, no acute distress HEENT: Normocephalic, mucous membranes moist Pulmonary: Nonlabored respirations Abdomen: Nondistended : Abrams catheter draining clear yellow urine Extremities: Moves all 4 spontaneously Neuro: No gross deficits Skin: Warm, dry, no rashes noted Results & Data Vital Signs (Past 12 Hours) Vital Signs Temp Pulse Pulse Pulse Resp BP BP 04/12/24 23:26 04/12/24 23:26 36.7 C 80 22 143/76 H 04/12/24 23:25 36.7 C 80 22 143/76 H 04/12/24 22:42 61 18 117/70 04/12/24 22:00 66 16 128/76 04/12/24 20:12 67 16 130/75 04/12/24 20:00 64 16 125/67 Pulse Ox O2 Del Method 04/12/24 23:26 Room Air 04/12/24 23:26 97 Room Air 04/12/24 23:25 97 Room Air 04/12/24 22:42 97 Room Air 04/12/24 22:00 98 04/12/24 20:12 99 04/12/24 20:00 98 PG Care Time/CCT Total # of Minutes Spent Total Time Spent with Patient: Total time spent is greater than 50% in coordination of care (as documented) at patient's floor/unit and/or counseling patient: Coding Level of Care Code 76920 IN/OBS CONSULT LVL 3,45M Diagnoses Urinary hesitancy R39.11 Urinary retention R33.9
[2024-04-13] MEDS: DOCUSATE SODIUM 100 MG CAP PO SCH (08:11)
[2024-04-13] MEDS: CETIRIZINE HCL 10 MG TABLET PO SCH (08:11)
[2024-04-13] MEDS: TAMSULOSIN HCL 0.4 MG CAP PO SCH (08:11)
[2024-04-13] MEDS: CYCLOBENZAPRINE HCL 10 MG TAB PO SCH (08:11)
[2024-04-13] MEDS: GABAPENTIN 600 MG TAB PO SCH (08:11)
[2024-04-13] MEDS: PANTOprazole 40 MG TAB PO SCH (08:11)
[2024-04-13] MEDS: HEPARIN SOD 5,000 UNIT/0.5 ML VIAL SQ SCH (08:14)
[2024-04-13] MEDS: POLYETHYLENE (MIRALAX) 17 GM PACK PO SCH (08:24)
[2024-04-13] MEDS: MUPIROCIN 2% OINT 22 GM TUBE EXT SCH (10:07)
--- NOTE | 2024-04-13 13:07 | Orthopedic Consultation ---
Date of Service April 13, 2024 Assessment & Plan (1) Acute pain of right hip: We discussed the diagnosis and treatment options at bedside. He is having intractable pain of his right hip. The x-rays and the CT scan did not show much. I think it is reasonable to get an MR arthrogram of the right hip with me js subtraction MRI. Hopefully this will give us a clear image of what is going on with the hip. We will decide what to do once the images are back. History of Present Illness Reason for Consultation: Intractable right hip pain. Requesting Physician: . Attending Physician: Hugo Weinstein MD Tigre is a 43-year-old male who is currently incarcerated. He underwent an ORIF of his right femoral neck by Dr. Jean-Baptiste several years ago. Unfortunately he has been dealing with intractable right hip pain. X-rays and CT scan have been negative. He was in the hospital with this about a month ago. He was told to follow-up with Dr. Jean-Baptiste in their office. An appointment was made but he did not show for the appointment. Unfortunately his hip pain is continued. He is unable to move his right hip. He is unable to bear weight. Orthopedics was consulted to evaluate and treat. Allergies Allergy/AdvReac Type Severity Reaction Status Date / Time No Known Allergies Allergy Verified 07/26/23 05:57 Home Medications Medication Instructions Recorded Confirmed Type cetirizine 10 mg capsule 10 mg PO QAM 07/11/23 04/12/24 History meloxicam 15 mg tablet 15 mg PO QAM 07/11/23 04/12/24 History omeprazole 20 mg capsule,delayed 20 mg PO QAM 07/11/23 04/12/24 History release albuterol sulfate 90 mcg/actuation 1 inh inhalation QID PRN 08/09/23 04/12/24 History aerosol inhaler sob/wheezing tamsulosin 0.4 mg capsule 0.4 mg PO DAILY #90 caps 09/03/23 04/12/24 Rx acetaminophen 500 mg tablet 1,000 mg (2 x 500 mg) PO Q8H #90 03/04/24 04/12/24 Rx (Tylenol Extra Strength) tabs cyclobenzaprine 10 mg tablet 10 mg PO TID #90 tabs 03/04/24 04/12/24 Rx docusate sodium 100 mg capsule 100 mg PO BID #60 caps 03/04/24 04/12/24 Rx ibuprofen 600 mg tablet 600 mg PO Q8H PRN pain (scale 03/04/24 04/12/24 Rx score 1-3) #90 tabs mupirocin 2 % topical ointment 1 applic EXT BID #22 grams 03/04/24 04/12/24 Rx oxycodone 5 mg tablet 5 mg PO Q4H PRN severe pain (scale 03/04/24 04/12/24 Rx score 7-10) #12 tabs polyethylene glycol 3350 17 gram 17 g PO DAILY #30 ea 03/04/24 04/12/24 Rx oral powder packet (Miralax) gabapentin 600 mg tablet 0 mg PO TID 04/12/24 04/12/24 History Past Med/Surg History Problem List History of hip surgery (Acute) Acute pain of right hip (Acute) Intractable pain (Acute) Inability to ambulate due to hip (Acute) Right hip pain (Acute) Urinary hesitancy Scrotal pain (Acute) Testicular pain Epididymitis Medical History Urinary retention Left varicocele GERD (gastroesophageal reflux disease) Allergic rhinitis Chronic pain Bulging lumbar disc DDD (degenerative disc disease), lumbar Surgical History Hx of left inguinal hernia repair (~05/17/23) History of repair of right hip joint Hx of appendectomy Hx of shoulder surgery lt, labrum, AC and Bursa Social History Smoking Status: Never smoker Tobacco Type: Smokeless Tobacco (Dip or Chew) Second Hand Exposure: No; Do You Dip or Chew Tobacco: Yes; Hx Alcohol Use: No Hx Substance Use: No Preferred Language: Danish Communication Ability: Effective Cash Management Specialist Required: No Beliefs That Will Affect Care: None Current Living Situation: Other Current Living Situation Comment: Inmate Feels Safe at Home: Yes Safety Concerns: Feels Safe At This Time Assistive Devices: Glasses and Wheelchair Review of Systems All systems reviewed & are unremarkable except as noted in HPI & below. Physical Exam On physical exam of the right hip, he has severe pain with any logroll or range of motion of the right hip.. Constitutional WD/WN, vitals as above Eyes PERRL, conjunctivae normal, anicteric sclerae ENMT external ear and nose normal, oropharynx normal Neck trachea midline, no thyromegaly Respiratory normal respiratory effort Cardiovascular RRR, no murmur, no edema Gastrointestinal (Abdomen) normal bowel sounds, soft, nontender, no hepatosplenomegaly Psychiatric A+Ox3, euthymic affect Results & Data Results & Data Laboratory Results . Diagnostic Findings X-rays of the right hip show well-placed right femoral screw. CT scan of the right hip shows a well-placed right femoral screw without any evidence of AVN or collapse of the femoral head. The CT scan is otherwise negative.. PG Care Time/CCT Total # of Minutes Spent Total Time Spent with Patient: Total time spent is greater than 50% in coordination of care (as documented) at patient's floor/unit and/or counseling patient: Coding Level of Care Code 76484 IN/OBS CONSULT LVL 4,60M Diagnoses Acute pain of right hip M25.551
--- NOTE | 2024-04-13 13:28 | Hospitalist Progress Note ---
Date of Service April 13, 2024 Assessment & Plan (1) Inability to ambulate due to hip: Plan: 43-year-old male with past medical history significant for seasonal allergies, chronic low back pain, chronic right hip pain secondary to fall requiring surgical intervention, history of medical marijuana use, history of urinary retention [facility] because of severe right hip pain and ambulatory dysfunction. Patient was in the hospital from February 27, 2024 to March 04 2024 with a similar presentation. Was seen by orthopedics and also pain management last admission. Orthopedics recommended transfer to [facility] for MRI arthrogram. Was discussed with [facility] and also [facility] for possible transfer last admit but they recommended no need of urgent transfer and advised to follow as outpatient. Was also contacted Dr. Kurtis Coello who did the initial surgery and he was willing to see him in his clinic and that there was a appointment made on 03/05/2024 at [facility] and [facility] was notified about the appointment but seems patient missed the appointment. Patient states after his discharge from here he was walking with the crutches but soon he became wheelchair-bound. And he finished his pain medication regimen couple of weeks ago. Last few days developed severe pain in his right hip region and having difficulty moving his right hip because of pain ,thats the reason he was brought in here today. He is also having difficulty urination. Status post Abrams cath in the ER currently. Says he is somewhat constipated. States he has control over his bowel and bladder movements. Has some abdominal discomfort. Denies any chest pain or shortness of breath. Denies any fevers. No cough. No headache. No runny nose or sore throat. No difficulty swallowing. Hemodynamics are okay. Unable to ambulate due to right hip pain-has had a few falls following recent discharge from the hospital due to severe right hip pain with ambulation Severe right hip pain CT pelvis no acute findings Pain control-pain is not controlled and of Had similar presentation in February and Ortho recommended transfer for MRI arthrogram but was not accepted in transfer And there was an appointment made with Dr. Kurtis Coello at [facility] who initially did surgery but patient missed the appointment Appreciate orthopedic input and recommendation to undergo an MRI with contrast of the right hip to rule out any occult fracture His pain medications will be increased GERD Continue omeprazole Urinary retention On Flomax Status post Abrams catheter in ER Consult urology in a.m. for further recommendations Appreciate urology input and recommendation DVT prophylaxis Heparin subcu Disposition Medical floor Full code Admission and Anticipated Discharge Date Admission Date: April 12, 2024 Subjective 04/13/2024 The patient was seen and examined in medical floor He has been complaining of severe pain involving the right hip with any movement of the right lower extremity Denies any other significant pain Review of Systems Review of Systems: All systems reviewed and are unremarkable except as noted below Musculoskeletal: Severe pain involving the right hip and groin with any movement involving the right lower extremity Physical Exam Physical Exam: Lying in bed with acute distress in the right hip joint is in minimal flexed position Constitutional: + ill appearing and average body habitus Eyes: PERRL, conjunctivae normal, anicteric sclerae ENMT: external ear and nose normal, oropharynx normal Neck: trachea midline, no thyromegaly Respiratory: no respiratory distress Auscultation: lungs clear to auscultation bilaterally Cardiovascular: Rate/Rhythm: regular rate and regular rhythm; not tachycardic Heart Sounds: normal S1 and normal S2; no murmur Extremities: no edema Gastrointestinal (Abdomen): Inspection/Auscultation: normal bowel sounds; abdomen not distended Percussion/Palpation: abdomen soft; abdomen nontender Musculoskeletal: Hip: + hip abnormal to inpsection (Right hip is slightly flexed position), + limited ROM of hip (Extremely limited movements involving the right lower extremity specially t) and + joint line tenderness (Extremely tender right inguinal area); no deformity Neurologic: normal touch/pain/proprioception and moves all extremities Lymphatic: no cervical or axillary lymphadenopathy Results & Data Results & Data Vital Signs (Past 12 Hours) Vital Signs Temp Pulse Resp BP Pulse Ox O2 Del Method 04/13/24 08:00 37.2 C 64 18 122/73 99 Room Air Laboratory Results Short CBC 04/12/24 04/13/24 Range/Units 17:05 05:28 WBC 8.86 7.05 (4.8-10.8) K/ul Hgb 15.6 14.7 (14.0-18.0) g/dl Hct 46.6 44.3 (42.0-52.0) % Plt Count 237 189 (130-400) K/uL BMP 04/12/24 04/13/24 17:05 05:28 Sodium 137 138 Potassium 3.8 4.2 Chloride 101 104 Carbon Dioxide 27 30 BUN 16 16 Creatinine 0.95 1.02 Glucose 108 H 87 Calcium 9.8 8.9 Liver Function 04/12/24 Range/Units 17:05 Total Bilirubin 0.5 (0.2-1.0) mg/dl AST 18 (13-39) U/L ALT 12 (7-52) U/L Alkaline Phosphatase 72 (34-104) U/L Albumin 5.1 H (3.4-5.0) gm/dl Medications Administered Current Inpatient Medications Acetaminophen (Acetaminophen 325 Mg Tab) 650 mg PO Q4H PRN PRN Reason: pain/fever Stop: 05/12/24 23:24 Last Admin: 04/13/24 08:14 Dose: 650 mg Albuterol (Albuterol Hfa 8 Gm Inhaler) 1 puffs INH QID PRN PRN Reason: sob/wheezing Stop: 05/12/24 23:24 Cetirizine HCl (Cetirizine Hcl 10 Mg Tablet) 10 mg PO QAM [facility] Stop: 05/13/24 08:59 Last Admin: 04/13/24 08:11 Dose: 10 mg Cyclobenzaprine HCl (Cyclobenzaprine Hcl 10 Mg Tab) 10 mg PO TID [facility] Stop: 05/13/24 08:59 Last Admin: 04/13/24 08:11 Dose: 10 mg Docusate Sodium (Docusate Sodium 100 Mg Cap) 100 mg PO BID [facility] Stop: 05/13/24 08:59 Last Admin: 04/13/24 08:11 Dose: 100 mg Gabapentin (Gabapentin 600 Mg Tab) 600 mg PO TID [facility] Stop: 05/13/24 08:59 Last Admin: 04/13/24 08:11 Dose: 600 mg Heparin Sodium (Porcine) (Heparin Sod 5,000 Unit/0.5 Ml Vial) 5,000 units SQ Q12 [facility] Stop: 05/13/24 08:59 Last Admin: 04/13/24 08:14 Dose: Not Given Hydromorphone HCl (Hydromorphone Inj 0.5 Mg/0.5 Ml Syr) 0.25 mg IV Q4H PRN PRN Reason: Moderate Pain (Scale 4, 5, 6) Stop: 12/21/24 23:24 Hydromorphone HCl (Hydromorphone Inj 0.5 Mg/0.5 Ml Syr) 0.5 mg IV Q4H PRN PRN Reason: Severe Pain (Scale 7, 8, 9,10) Stop: 04/26/24 23:24 Last Admin: 04/13/24 10:11 Dose: 0.5 mg Mupirocin (Mupirocin 2% Oint 22 Gm Tube) 1 appln EXT BID [facility] Stop: 05/13/24 08:59 Last Admin: 04/13/24 10:07 Dose: Not Given Pantoprazole Sodium (Pantoprazole 40 Mg Tab) 40 mg PO QAM [facility] Stop: 05/13/24 08:59 Last Admin: 04/13/24 08:11 Dose: 40 mg Polyethylene Glycol (Polyethylene (Miralax) 17 Gm Pack) 17 gm PO DAILY PRN PRN Reason: Constipation Stop: 05/12/24 23:24 Polyethylene Glycol (Polyethylene (Miralax) 17 Gm Pack) 17 gm PO DAILY [facility] Stop: 05/13/24 08:59 Last Admin: 04/13/24 08:24 Dose: 17 gm Tamsulosin HCl (Tamsulosin Hcl 0.4 Mg Cap) 0.4 mg PO DAILY [facility] Stop: 05/13/24 08:59 Last Admin: 04/13/24 08:11 Dose: 0.4 mg
[2024-04-13] MEDS: HYDROCODONE/ACETAMOPHEN 5/325MG TAB PO PRN (14:00)
--- NOTE | 2024-04-14 14:16 | Hospitalist Progress Note ---
Date of Service April 14, 2024 Assessment & Plan (1) Inability to ambulate due to hip: Plan: 43-year-old male with past medical history significant for seasonal allergies, chronic low back pain, chronic right hip pain secondary to fall requiring surgical intervention, history of medical marijuana use, history of urinary retention comes from [facility] because of severe right hip pain and ambulatory dysfunction. Patient was in the hospital from February 27, 2024 to March 04 2024 with a similar presentation. Was seen by orthopedics and also pain management last admission. Orthopedics recommended transfer to [facility] for MRI arthrogram. Was discussed with [facility] and also [facility] for possible transfer last admit but they recommended no need of urgent transfer and advised to follow as outpatient. Was also contacted Dr. Kurtis Coello who did the initial surgery and he was willing to see him in his clinic and that there was a appointment made on 03/05/2024 at [facility] and [facility] was notified about the appointment but seems patient missed the appointment. Patient states after his discharge from here he was walking with the crutches but soon he became wheelchair-bound. And he finished his pain medication regimen couple of weeks ago. Last few days developed severe pain in his right hip region and having difficulty moving his right hip because of pain ,thats the reason he was brought in here today. He is also having difficulty urination. Status post Abrams cath in the ER currently. Says he is somewhat constipated. States he has control over his bowel and bladder movements. Has some abdominal discomfort. Denies any chest pain or shortness of breath. Denies any fevers. No cough. No headache. No runny nose or sore throat. No difficulty swallowing. Hemodynamics are okay. Unable to ambulate due to right hip pain-has had a few falls following recent discharge from the hospital due to severe right hip pain with ambulation Severe right hip pain CT pelvis no acute findings Pain control-pain is not controlled and of Had similar presentation in February and Ortho recommended transfer for MRI arthrogram but was not accepted in transfer And there was an appointment made with Dr. Kurtis Coello at [place] who initially did surgery but patient missed the appointment Appreciate orthopedic input and recommendation to undergo an MRI with contrast of the right hip to rule out any occult fracture His pain medications will be increased Severe pain in the right groin with any movement of the lower extremities is persisting Dilaudid doses frequency have been changed Awaiting MRI of the right hip and evaluation by orthopedic surgeon Constipation Secondary to lack of movement and narcotic pain medications Has been getting laxatives and will add milk of magnesia GERD Continue omeprazole Urinary retention On Flomax Status post Abrams catheter in ER Consult urology in a.m. for further recommendations Appreciate urology input and recommendation DVT prophylaxis Heparin subcu Disposition Medical floor Full code Admission and Anticipated Discharge Date Admission Date: April 12, 2024 Subjective 04/13/2024 The patient was seen and examined in medical floor He has been complaining of severe pain involving the right hip with any movement of the right lower extremity Denies any other significant pain 04/14/2024 The patient was seen and examined in medical floor He has been complaining of severe pain in right groin with any movement of the lower extremities more on the right side than the left Awaiting MRI of the right hip Bowel has not moved Review of Systems Review of Systems: All systems reviewed and are unremarkable except as noted below Physical Exam Physical Exam: Lying in bed with acute distress in the right hip joint is in minimal flexed position Constitutional: + ill appearing and average body habitus Eyes: PERRL, conjunctivae normal, anicteric sclerae ENMT: external ear and nose normal, oropharynx normal Neck: trachea midline, no thyromegaly Respiratory: no respiratory distress Auscultation: lungs clear to auscultation bilaterally Cardiovascular: Rate/Rhythm: regular rate and regular rhythm; not tachycardic Heart Sounds: normal S1 and normal S2; no murmur Extremities: no edema Gastrointestinal (Abdomen): Inspection/Auscultation: normal bowel sounds; abdomen not distended Percussion/Palpation: abdomen soft; abdomen nontender Musculoskeletal: Hip: + hip abnormal to inpsection (Right hip is slightly flexed position), + limited ROM of hip (Extremely limited movements involving the right lower extremity specially t) and + joint line tenderness (Extremely tender right inguinal area); no deformity Neurologic: normal touch/pain/proprioception and moves all extremities Lymphatic: no cervical or axillary lymphadenopathy Results & Data Results & Data Vital Signs (Past 12 Hours) Vital Signs Temp Pulse Resp BP Pulse Ox O2 Del Method 04/14/24 08:03 36.6 C 84 16 102/66 99 Room Air Medications Administered Current Inpatient Medications Acetaminophen (Acetaminophen 325 Mg Tab) 650 mg PO Q4H PRN PRN Reason: pain/fever Stop: 05/12/24 23:24 Last Admin: 04/13/24 08:14 Dose: 650 mg Hydrocodone Bitart/Acetaminophen (Hydrocodone/Acetamophen 5/325mg Tab) 1 tab PO Q4H PRN PRN Reason: Pain Stop: 04/27/24 13:28 Last Admin: 04/14/24 03:24 Dose: 1 tab Albuterol (Albuterol Hfa 8 Gm Inhaler) 1 puffs INH QID PRN PRN Reason: sob/wheezing Stop: 05/12/24 23:24 Cetirizine HCl (Cetirizine Hcl 10 Mg Tablet) 10 mg PO QAM [facility] Stop: 05/13/24 08:59 Last Admin: 04/14/24 09:12 Dose: 10 mg Cyclobenzaprine HCl (Cyclobenzaprine Hcl 10 Mg Tab) 10 mg PO TID [facility] Stop: 05/13/24 08:59 Last Admin: 04/14/24 09:11 Dose: 10 mg Docusate Sodium (Docusate Sodium 100 Mg Cap) 100 mg PO BID [facility] Stop: 05/13/24 08:59 Last Admin: 04/14/24 09:21 Dose: 100 mg Gabapentin (Gabapentin 600 Mg Tab) 600 mg PO TID [facility] Stop: 05/13/24 08:59 Last Admin: 04/14/24 09:12 Dose: 600 mg Heparin Sodium (Porcine) (Heparin Sod 5,000 Unit/0.5 Ml Vial) 5,000 units SQ Q12 [facility] Stop: 05/13/24 08:59 Last Admin: 04/14/24 09:21 Dose: 5,000 units Hydromorphone HCl (Hydromorphone Inj 0.5 Mg/0.5 Ml Syr) 0.25 mg IV Q4H PRN PRN Reason: Moderate Pain (Scale 4, 5, 6) Stop: 04/26/24 23:24 Hydromorphone HCl (Hydromorphone Inj 0.5 Mg/0.5 Ml Syr) 0.5 mg IV Q3H PRN PRN Reason: Severe Pain (Scale 7, 8, 9,10) Stop: 04/26/24 23:24 Mupirocin (Mupirocin 2% Oint 22 Gm Tube) 1 appln EXT BID [facility] Stop: 05/13/24 08:59 Last Admin: 04/14/24 09:15 Dose: Not Given Pantoprazole Sodium (Pantoprazole 40 Mg Tab) 40 mg PO QAM [facility] Stop: 05/13/24 08:59 Last Admin: 04/14/24 09:12 Dose: 40 mg Polyethylene Glycol (Polyethylene (Miralax) 17 Gm Pack) 17 gm PO DAILY PRN PRN Reason: Constipation Stop: 05/12/24 23:24 Polyethylene Glycol (Polyethylene (Miralax) 17 Gm Pack) 17 gm PO DAILY [facility] Stop: 05/13/24 08:59 Last Admin: 04/14/24 09:21 Dose: 17 gm Tamsulosin HCl (Tamsulosin Hcl 0.4 Mg Cap) 0.4 mg PO DAILY [facility] Stop: 05/13/24 08:59 Last Admin: 04/14/24 09:12 Dose: 0.4 mg
[2024-04-14] MEDS: HYDROmorphone INJ 0.5 MG/0.5 ML SYR IV PRN (14:21)
[2024-04-14] MEDS: MAGNESIUM HYDROXIDE SUSP 30 ML UDC PO ONE (14:21)
--- NOTE | 2024-04-14 20:40 | Orthopedic Progress Note ---
Date of Service April 14, 2024 Assessment & Plan (1) Acute pain of right hip: X-rays and CT scan of his right hip have been negative. I tried to order a metal subtraction arthrogram of the right hip at the hospital, however, after speak with the radiologist the metal subtraction MRIs are only at the [facility]. In fact, Tigre already has an appointment for an arthrogram metal subtraction MRI absolute course on . At this point I advised that he keep his appointment for the MRI on . After the MRI, he should follow-up with his hip surgeon Dr. Diamond with [facility]. He is orthopedically stable for discharge at this time. He will likely need some pain medications to help him out till he gets the studies and can follow-up with his hip surgeon. Subjective Tigre was seen and examined at bedside today. He is still having intractable pain in his right hip. He is unable to bear weight on it. He is unable to move his right hip. He has no new complaints.. Review of Systems All systems reviewed & are unremarkable except as noted in HPI & below. Physical Exam On physical exam of the right hip, he has pain with any sort of motion of the hip. He has pain with logroll.. Results & Data Results & Data Laboratory Results . Diagnostic Findings . PG Care Time/CCT Total # of Minutes Spent Total Time Spent with Patient: Total time spent is greater than 50% in coordination of care (as documented) at patient's floor/unit and/or counseling patient: Coding Level of Care Code 67307 SUB INP/OBS CARE 2/35MIN Diagnoses Acute pain of right hip M25.551
[2024-04-14] MEDS: LORazepam 0.5 MG TAB PO ONE (21:51)
[2024-04-15] MEDS: POLYETHYLENE (MIRALAX) 17 GM PACK PO PRN (05:20)
[2024-04-15 07:08] VITALS: RESP 18
[2024-04-15] MEDS ORDERED: HYDROcodone/ACETAMINOPHEN 10/325 TAB PO PRN (14:52)
--- NOTE | 2024-04-15 16:10 | Hospitalist Progress Note ---
Date of Service April 15, 2024 Assessment & Plan (1) Inability to ambulate due to hip: Plan: 43-year-old male with past medical history significant for seasonal allergies, chronic low back pain, chronic right hip pain secondary to fall requiring surgical intervention, history of medical marijuana use, history of urinary retention comes from [facility] because of severe right hip pain and ambulatory dysfunction. Patient was in the hospital from February 27, 2024 to March 04 2024 with a similar presentation. Was seen by orthopedics and also pain management last admission. Orthopedics recommended transfer to [facility] center for MRI arthrogram. Was discussed with [facility] and also [facility] for possible transfer last admit but they recommended no need of urgent transfer and advised to follow as outpatient. Was also contacted Dr. Kurtis Coello who did the initial surgery and he was willing to see him in his clinic and that there was a appointment made on 03/05/2024 at [facility] and [facility] was notified about the appointment but seems patient missed the appointment. Patient states after his discharge from here he was walking with the crutches but soon he became wheelchair-bound. And he finished his pain medication regimen couple of weeks ago. Last few days developed severe pain in his right hip region and having difficulty moving his right hip because of pain ,thats the reason he was brought in here today. He is also having difficulty urination. Status post Abrams cath in the ER currently. Says he is somewhat constipated. States he has control over his bowel and bladder movements. Has some abdominal discomfort. Denies any chest pain or shortness of breath. Denies any fevers. No cough. No headache. No runny nose or sore throat. No difficulty swallowing. Hemodynamics are okay. Unable to ambulate due to right hip pain-has had a few falls following recent discharge from the hospital due to severe right hip pain with ambulation Severe right hip pain CT pelvis no acute findings Pain control-pain is not controlled and of Had similar presentation in February and Ortho recommended transfer for MRI arthrogram but was not accepted in transfer And there was an appointment made with Dr. Kurtis Coello at [place] who initially did surgery but patient missed the appointment Appreciate orthopedic input and recommendation to undergo an MRI with contrast of the right hip to rule out any occult fracture His pain medications will be increased Severe pain in the right groin with any movement of the lower extremities is persisting Dilaudid doses frequency have been changed Continues to have severe pain and not being able to discharged Ortho Recommendation Continues to have severe pain with any movement of the lower extremities especially the right lower extremity Has scheduled MRI metal subtraction arthrogram of the right hip at the [facility] on . The orthopedic surgeon advised to keep that appointment and up to the MRI he should follow-up with his hip surgeon Dr. Diamond with [facility] The patient cannot be discharged safely with severe pain in the current medication requirement to control pain His oral oxycodone was increased to 2 Tabs p.o. every 6 hourly as needed He will need to be discharged on for that MRI and then will need to have an appointment with his orthopedic surgeon as mentioned above. Constipation Secondary to lack of movement and narcotic pain medications Has been getting laxatives and will add milk of magnesia GERD Continue omeprazole Urinary retention On Flomax Status post Abrams catheter in ER Consult urology in a.m. for further recommendations Appreciate urology input and recommendation DVT prophylaxis Heparin subcu Disposition Medical floor Full code Admission and Anticipated Discharge Date Admission Date: April 12, 2024 Subjective 04/13/2024 The patient was seen and examined in medical floor He has been complaining of severe pain involving the right hip with any movement of the right lower extremity Denies any other significant pain 04/14/2024 The patient was seen and examined in medical floor He has been complaining of severe pain in right groin with any movement of the lower extremities more on the right side than the left Awaiting MRI of the right hip Bowel has not moved 04/15/2024 The patient was seen and examined in medical floor Still complaining of severe pain with any movement of the extremities Going to the bathroom with difficulty and now having more pain He is not safe to be discharged and most likely will come back right away from the facility Review of Systems Review of Systems: All systems reviewed and are unremarkable except as noted below Musculoskeletal: Severe pain involving the right hip and groin with any movement involving the right lower extremity Physical Exam Physical Exam: Lying in bed with acute distress in the right hip joint is in minimal flexed position Constitutional: + ill appearing and average body habitus Eyes: PERRL, conjunctivae normal, anicteric sclerae ENMT: external ear and nose normal, oropharynx normal Neck: trachea midline, no thyromegaly Respiratory: no respiratory distress Auscultation: lungs clear to auscultation bilaterally Cardiovascular: Rate/Rhythm: regular rate and regular rhythm; not tachycardic Heart Sounds: normal S1 and normal S2; no murmur Extremities: no edema Gastrointestinal (Abdomen): Inspection/Auscultation: normal bowel sounds; abdomen not distended Percussion/Palpation: abdomen soft; abdomen nontender Musculoskeletal: Hip: + hip abnormal to inpsection (Right hip is slightly flexed position), + limited ROM of hip (Extremely limited movements involving the right lower extremity specially t) and + joint line tenderness (Extremely tender right inguinal area); no deformity Neurologic: normal touch/pain/proprioception and moves all extremities Lymphatic: no cervical or axillary lymphadenopathy Results & Data Results & Data Vital Signs (Past 12 Hours) Vital Signs Temp Pulse Resp BP Pulse Ox O2 Del Method 04/15/24 14:22 36.6 C 80 18 105/70 98 Room Air 04/15/24 07:07 37.0 C 74 18 127/77 98 Room Air Medications Administered Current Inpatient Medications Acetaminophen (Acetaminophen 325 Mg Tab) 650 mg PO Q4H PRN PRN Reason: pain/fever Stop: 05/12/24 23:24 Last Admin: 04/13/24 08:14 Dose: 650 mg Hydrocodone Bitart/Acetaminophen (Hydrocodone/Acetamophen 5/325mg Tab) 2 tab PO Q4H PRN PRN Reason: Pain Stop: 04/27/24 13:28 Albuterol (Albuterol Hfa 8 Gm Inhaler) 1 puffs INH QID PRN PRN Reason: sob/wheezing Stop: 05/12/24 23:24 Cetirizine HCl (Cetirizine Hcl 10 Mg Tablet) 10 mg PO QAM [facility] Stop: 05/13/24 08:59 Last Admin: 04/15/24 10:24 Dose: 10 mg Cyclobenzaprine HCl (Cyclobenzaprine Hcl 10 Mg Tab) 10 mg PO TID FANTASMA Stop: 05/13/24 08:59 Last Admin: 04/15/24 13:24 Dose: 10 mg Docusate Sodium (Docusate Sodium 100 Mg Cap) 100 mg PO BID FANTASMA Stop: 05/13/24 08:59 Last Admin: 04/15/24 08:34 Dose: 100 mg Gabapentin (Gabapentin 600 Mg Tab) 600 mg PO TID [facility] Stop: 05/13/24 08:59 Last Admin: 04/15/24 13:24 Dose: 600 mg Heparin Sodium (Porcine) (Heparin Sod 5,000 Unit/0.5 Ml Vial) 5,000 units SQ Q12 [facility] Stop: 05/13/24 08:59 Last Admin: 04/15/24 08:34 Dose: 5,000 units Hydromorphone HCl (Hydromorphone Inj 0.5 Mg/0.5 Ml Syr) 0.25 mg IV Q4H PRN PRN Reason: Moderate Pain (Scale 4, 5, 6) Stop: 04/26/24 23:24 Hydromorphone HCl (Hydromorphone Inj 0.5 Mg/0.5 Ml Syr) 0.5 mg IV Q3H PRN PRN Reason: Severe Pain (Scale 7, 8, 9,10) Stop: 04/26/24 23:24 Last Admin: 04/15/24 13:22 Dose: 0.5 mg Mupirocin (Mupirocin 2% Oint 22 Gm Tube) 1 appln EXT BID [facility] Stop: 05/13/24 08:59 Last Admin: 04/15/24 08:37 Dose: Not Given Pantoprazole Sodium (Pantoprazole 40 Mg Tab) 40 mg PO QAM [facility] Stop: 05/13/24 08:59 Last Admin: 04/15/24 08:36 Dose: 40 mg Polyethylene Glycol (Polyethylene (Miralax) 17 Gm Pack) 17 gm PO DAILY PRN PRN Reason: Constipation Stop: 05/12/24 23:24 Last Admin: 04/15/24 05:20 Dose: 17 gm Polyethylene Glycol (Polyethylene (Miralax) 17 Gm Pack) 17 gm PO DAILY [facility] Stop: 05/13/24 08:59 Last Admin: 04/15/24 10:24 Dose: 17 gm Tamsulosin HCl (Tamsulosin Hcl 0.4 Mg Cap) 0.4 mg PO DAILY [facility] Stop: 05/13/24 08:59 Last Admin: 04/15/24 08:36 Dose: 0.4 mg
[2024-04-15] MEDS: HYDROCODONE/ACETAMOPHEN 5/325MG TAB PO PRN (21:36)
--- NOTE | 2024-04-16 12:29 | Discharge Summary ---
Date of Service April 16, 2024 Admission HPI Per Admitting Provider 43-year-old male with past medical history significant for seasonal allergies, chronic low back pain, chronic right hip pain secondary to fall requiring surgical intervention, history of medical marijuana use, history of urinary retention comes from [facility] because of severe right hip pain and ambulatory dysfunction. Patient was in the hospital from February 27, 2024 to March 04 2024 with a similar presentation. Was seen by orthopedics and also pain management last admission. Orthopedics recommended transfer to [facility]'s center for MRI arthrogram. Was discussed with [facility] and also [facility] for possible transfer last admit but they recommended no need of urgent transfer and advised to follow as outpatient. Was also contacted Dr. Kurtis Coello who did the initial surgery and he was willing to see him in his clinic and that there was a appointment made on 03/05/2024 at [facility] and [facility] was notified about the appointment but seems patient missed the appointment. Patient states after his discharge from here he was walking with the crutches but soon he became wheelchair-bound. And he finished his pain medication regimen couple of weeks ago. Last few days developed severe pain in his right hip region and having difficulty moving his right hip because of pain ,thats the reason he was brought in here today. He is also having difficulty urination. Status post Abrams cath in the ER currently. Says he is somewhat constipated. States he has control over his bowel and bladder movements. Has some abdominal discomfort. Denies any chest pain or shortness of breath. Denies any fevers. No cough. No headache. No runny nose or sore throat. No difficulty swallowing. Hemodynamics are okay. Past medical history. As mentioned above. Past surgical history. Left inguinal hernia repair. Right hip joint repair. History of appendectomy. History of shoulder surgery. Social history. No smoking. Chews tobacco. Alcohol use. History of marijuana use. Admission Exam Per Admitting Provider General- Not in distress. Head- atraumatic Eyes- PERRL. ENT- oropharynx clear Neck- supple, no JVD. Lungs- clear to auscultation no wheezing or crackles Heart- regular rate and rhythm; no murmur, no gallop. Abdomen- normal bowel sounds, soft, nontender, no distension Extremities- no pretibial edema,very painful right hip movements Neuro- alert, oriented PERRL, EOMI; no facial palsy; no dysarthria; moves extremities except right lower extremity Principal Diagnosis Right hip pain Constipation Discharge Exam General- Not in distress. Head- atraumatic Eyes- PERRL. ENT- oropharynx clear Neck- supple, no JVD. Lungs- clear to auscultation no wheezing or crackles Heart- regular rate and rhythm; no murmur, no gallop. Abdomen- normal bowel sounds, soft, nontender, no distension Extremities- no pretibial edema,very painful right hip movements Neuro- alert, oriented PERRL, EOMI; no facial palsy; no dysarthria; moves extremities except right lower extremity Discharge Data Allergies Allergy/AdvReac Type Severity Reaction Status Date / Time No Known Allergies Allergy Verified 07/26/23 05:57 Consultations 04/12/24 19:24 ED Decision to Admit Stat 04/13/24 08:00 Consult Orthopedic Surgery Routine Consult Urology Routine Ordered Studies 04/12/24 16:59 CT hip RT wo con Stat Hospital Course (1) Inability to ambulate due to hip: Per prior attending with addendum: 43-year-old male with past medical history significant for seasonal allergies, chronic low back pain, chronic right hip pain secondary to fall requiring surgical intervention, history of medical marijuana use, history of urinary retention comes from [facility] because of severe right hip pain and ambulatory dys function. Patient was in the hospital from February 27, 2024 to March 04 2024 with a similar presentation. Was seen by orthopedics and also pain management last admission. Orthopedics recommended transfer to tertiary's center for MRI arthrogram. Was discussed with [facility] and also [facility] for possible transfer last admit but they recommended no need of urgent transfer and advised to follow as outpatient. Was also contacted Dr. Kurtis Coello who did the initial surgery and he was willing to see him in his clinic and that there was a appointment made on 03/05/2024 at [facility] and [facility] was notified about the appointment but seems patient missed the appointment. Patient states after his discharge from here he was walking with the crutches but soon he became wheelchair-bound. And he finished his pain medication regimen couple of weeks ago. Last few days developed severe pain in his right hip region and having difficulty moving his right hip because of pain ,thats the reason he was brought in here today. He is also having difficulty urination. Status post Abrams cath in the ER currently. Says he is somewhat constipated. States he has control over his bowel and bladder movements. Has some abdominal discomfort. Denies any chest pain or shortness of breath. Denies any fevers. No cough. No headache. No runny nose or sore throat. No difficulty swallowing. Hemodynamics are okay. Unable to ambulate due to right hip pain-has had a few falls following recent discharge from the hospital due to severe right hip pain with ambulation Severe right hip pain CT pelvis no acute findings Pain control-pain is not controlled and of Had similar presentation in February and Ortho recommended transfer for MRI arthrogram but was not accepted in transfer And there was an appointment made with Dr. Kurtis Coello at [place] who initially did surgery but patient missed the appointment Appreciate orthopedic input and recommendation to undergo an MRI with contrast of the right hip to rule out any occult fracture His pain medications will be increased Severe pain in the right groin with any movement of the lower extremities is persisting Dilaudid doses frequency have been changed Continues to have severe pain and not being able to discharged Ortho Recommendation Continues to have severe pain with any movement of the lower extremities especially the right lower extremity Has scheduled MRI metal subtraction arthrogram of the right hip at the [facility] on . The orthopedic surgeon advised to keep that appointment and up to the MRI he should follow-up with his hip surgeon Dr. Diamond with [facility] The patient cannot be discharged safely with severe pain in the current medication requirement to control pain His oral oxycodone was increased to 2 Tabs p.o. every 6 hourly as needed He will need to be discharged on for that MRI and then will need to have an appointment with his orthopedic surgeon as mentioned above. Constipation Secondary to lack of movement and narcotic pain medications Has been getting laxatives and will add milk of magnesia GERD Continue omeprazole Urinary retention On Flomax Status post Abrams catheter in ER Consult urology in a.m. for further recommendations Appreciate urology input and recommendation DVT prophylaxis Heparin subcu Disposition Medical floor Full code Addendum 04/16/2024: Patient was seen and examined at bedside as a follow-up of acute right hip pain. Orthopedics has evaluated the patient, reviewed the note. Patient is stable for discharge from orthopedic standpoint. Patient will be discharged on recommendation to utilize oral pain medications and bowel regimen. Patient has been signed out to nurse practitioner at [facility] ([facility]). They are made aware of his upcoming MRI as an outpatient tomorrow which is important for his care. He needs to follow-up with orthopedics after MRI is done for definitive management of his right hip pain. Patient does not want Abrams catheter on discharge, will try voiding trial and if fails he may need to go on Abrams catheter. He is being discharged to [facility] facility with following instructions at the point of discharge: Follow-up with your primary care physician within a week time and likely you will need labs CBC/CMP/magnesium/phosphorus. You were evaluated for right hip pain by orthopedics while in hospital, you will need to get your MRI done as an outpatient for further evaluation. Follow-up with your outpatient orthopedic Dr. Kurtis Coello at [place] after the MRI is done. You have your metal subtraction MRI scheduled at [facility] [place] for tomorrow. You will be discharged on pain medication, recommend that you utilize [id number] bowel regimens with a goal of 1-2 bowel movements a day. Please make sure that you are able to get your medications today by calling your pharmacy before you leave the hospital so that your treatment continuity is not broken. Home Health Attestation I certify that this patient is under my care and that I, or a physicians a ssistant working with me, had a face to-face encounter that meets the home health [id number] encounter requirements with this patient. The encounter with the patient was in whole, or in part, for the following medical condition, which is the primary reason for home health care (list medical condition): I certify that, based on my findings, the following services are medically necessary home health services: My clinical findings support the need for the above services because: Further, I certify that my clinical findings support that this patient is homebound (i.e. absences from home require considerable and taxing effort and are for medical reasons or latter-day services or infrequently or of short duration when for other reasons) because: Certification for Home Health Services: Based on the above findings, I certify that this patient is confined to the home and needs intermittent correction care, physical therapy and/or speech therapy or continues to need occupational therapy. The patient is under my care, and I have initiated the establishment of the plan of care. This patient will be followed by a physician who will periodically review the plan of care. Total Time Total Time Spent Total Time Spent (In Minutes): 40 Discharge Plan Discharge Items [facility] Disposition[facility] Reason For Visit: RIGHT HIP PAIN, AMBULATORY DYSFUNCTION Discharge Diagnosis: Right hip pain Constipation Activity: Resume your previous activity Non-emergency contact: Primary Care Provider Call non-emergency contact if: you have any medication questions, your pain is not controlled and your temperature is above 101 Follow-up/Referrals: Mack DENISE [Primary Care Provider] - Diet: Heart Healthy Addtl Attending Provider Instructions: Follow-up with your primary care physician within a week time and likely you will need labs CBC/CMP/magnesium/phosphorus. You were evaluated for right hip pain by orthopedics while in hospital, you will need to get your MRI done as an outpatient for further evaluation. Follow-up with your outpatient orthopedic Dr. Kurtis Coello at [place] after the MRI is done. You have your metal subtraction MRI scheduled at [facility] [place] for tomorrow. You will be discharged on pain medication, recommend that you utilize [id number] bowel regimens with a goal of 1-2 bowel movements a day. Please make sure that you are able to get your medications today by calling your pharmacy before you leave the hospital so that your treatment continuity is not broken. Pending Studies at Discharge: No Stand-Alone Forms: My [facility] Skilled Items Patient informed of condition?: Yes Discharge Level of Care: Other Communicable Disease: No Discharge Prognosis: Stable Lines: None Urinary Catheter: No Medications and DC Order Prescriptions: New hydrocodone-acetaminophen 5-325 mg Tablet 2 tab PO Q4H PRN (Reason: hip pain) Qty: 20 0RF Continued albuterol sulfate 90 mcg/actuation HFA aerosol inhaler 1 inh inhalation QID PRN (Reason: sob/wheezing) tamsulosin 0.4 mg capsule 0.4 mg PO DAILY Qty: 90 3RF cyclobenzaprine 10 mg Tablet 10 mg PO TID Qty: 90 0RF polyethylene glycol 3350 [Miralax] 17 gram Powder In Packet 17 g PO DAILY Qty: 30 0RF acetaminophen [Tylenol Extra Strength] 500 mg Tablet 1,000 mg PO Q8H Qty: 90 0RF docusate sodium 100 mg Capsule 100 mg PO BID Qty: 60 0RF mupirocin 2 % Ointment 1 applic EXT BID Qty: 22 0RF Rx Instructions: apply to tip of penis bid x 1 week ibuprofen 600 mg Tablet 600 mg PO Q8H PRN (Reason: pain (scale score 1-3)) Qty: 90 0RF oxycodone 5 mg Tablet 5 mg PO Q4H PRN (Reason: severe pain (scale score 7-10)) Qty: 12 0RF gabapentin 600 mg Tablet 0 mg PO TID Rx Instructions: WAS TAKING 600 MG TID ON 03/04/24 UNABLE TO VERIFY WITH PT meloxicam 15 mg Tablet 15 mg PO QAM Hold Instructions: Resume on 03/11/24. Hold until you are off the as needed ibuprofen omeprazole 20 mg Capsule,Delayed Release(Dr/Ec) 20 mg PO QAM cetirizine 10 mg Capsule 10 mg PO QAM Discharge Orders: Discharge Order (Routine); Ordered 04/16/24 Ordered By: Sonny Johnson Admission Data Admit Date/Time: 04/12/24 21:48 Attending Provider: Sonny Johnson Admit Provider: King Jeong Primary Care Provider: Mack DENISE Other Providers: Torsten Platt; King Jeong
[2024-04-16 19:42] VITALS: BP 127/83; PULSE 94; TEMP 98.1; O2SAT 98
--- NOTE | 2024-04-16 21:06 | Communication Note ---
Date of Service: April 16, 2024 Patient with urinary retention, bladder scan of 687ml as per RN. AP Recurrent urinary retention Failed voiding trial Abrams catheter reinsertion prior to return to correctional facility
== END 2024-04-16 12:25 | DRG 556 ==
LOC: ED 16:42 → INTOOBSV 21:48 → SUATTDRO 21:48 → 3E 21:48